=== PATIENT | male | born 1970 | race Caucasian/White ===

== ENCOUNTER → 2016-08-30 | Outpatient (CLI) | payer BC ==
--- NOTE | 2016-08-31 09:11 | XR ---
EXAMINATION TYPE: XR lumbosacral spine min 4V DATE OF EXAM: 08/30/2016 COMPARISON: NONE HISTORY: Low back pain TECHNIQUE: 5 view lumbar spine FINDINGS: There 5 lumbar-type vertebral bodies. Pedicles are intact. Some narrowing of the L4-5 disc height and L5-S1 disc height posteriorly may be present. Some mild posterior disc space narrowing at L3-4 may also be present. Spondylosis is present. Mild facet degenerative changes are present greater in the left lower spine. IMPRESSION: 1. Mild degenerative disc changes L3-4 through L5-S1 posteriorly. 2. Minimal degenerative changes in the left lower facets.
== END | disposition home or self-care (01) ==
LOC: RADXRMAIN 17:49
PROVIDERS: ATTEND Family Medicine
DX: M47.817 Spondylosis without myelopathy or radiculopathy, lumbosacral region (principal)
CPT/HCPCS: 72110

== ENCOUNTER → 2017-04-13 | Outpatient (CLI) | payer BC ==
--- NOTE | 2017-04-14 08:51 | XR ---
Right knee HISTORY: Pain 3 views of the right knee There is marginal spurring and joint space loss in the medial compartment. Alignment and bone mineral ization are maintained. No fracture or dislocation. No evident joint effusion. IMPRESSION: Osteoarthritis.
== END | disposition home or self-care (01) ==
LOC: RADXRMAIN 16:57
PROVIDERS: ATTEND Family Medicine
DX: M17.11 Unilateral primary osteoarthritis, right knee (principal)

== ENCOUNTER → 2020-04-15 | Outpatient (CLI) | payer BC | END | disposition home or self-care (01) | LOC: LABWHC1 12:29 | PROVIDERS: ATTEND Family Medicine | DX: R05 Cough (principal); Z20.822 Contact with and (suspected) exposure to COVID-19 | CPT/HCPCS: U0003; C9803; U0005 ==

== ENCOUNTER → 2021-10-08 | Outpatient (CLI) | payer BC ==
--- NOTE | 2021-10-08 11:58 | MR ---
EXAMINATION TYPE: MR cervical spine wo con DATE OF EXAM: 10/08/2021 COMPARISON: None HISTORY: Neck pain, LUE radiculopathy. TECHNIQUE: Multiplanar, multisequence images of the cervical spine were acquired without contrast. C2-C3: No evident disc herniation or foraminal encroachment or spinal stenosis. C3-C4: Uncovertebral joint hypertrophy causes some mild foraminal encroachment bilaterally. No eviden t disc herniation. No significant spinal stenosis. C4-C5: There is some uncovertebral joint hypertrophy, some encroachment on the neural foramina is mil d. Small posterior disc bulge causes anterior mass effect on the thecal sac, may contact the anterior cervical cord, suspect there is a narrow spinal canal, there is mild spinal stenosis. C5-C6: Uncovertebral joint hypertrophy results in bilateral foraminal encroachment. Posterior extensi on endplate disc complex, posterior broad-based disc bulge causes mass effect on the cervical cord, m ild to moderate spinal stenosis. C6-C7: There is bilateral uncovertebral joint hypertrophy causing foraminal encroachment. Posterior e xtension endplate disc complex, posterior broad-based disc bulge causes anterior mass effect on the t hecal sac and possibly contact with the cervical cord, mild spinal stenosis. C7-T1: No evidence for degenerative disc disease. No disc bulge/herniation or protrusion. No Canal stenosis. Foramina are patent bilaterally. Cervical segments are intact. There is normal alignment. Cervical spinal cord is of normal signal. Craniovertebral junction relationships are within normal limits. Thoracic spinal curvature is suspe cted. Cervical vertebral bodies show preserved height and alignment. There is multilevel spondylosis with endplate discogenic marrow signal change. Loss of disc height signal is present at C5-6, C6-7 co nsistent with disc desiccation and degenerative disc disease. IMPRESSION: Degenerative disc disease as described with spinal stenosis and foraminal encroachment at multiple le vels..
== END | disposition home or self-care (01) ==
LOC: RADMRIMAIN 10:11
PROVIDERS: ATTEND Family Medicine
DX: M50.123 Cervical disc disorder at C6-C7 level with radiculopathy (principal); M99.71 Connective tissue and disc stenosis of intervertebral foramina of cervical region
CPT/HCPCS: 72141

== ENCOUNTER 2023-06-13 01:18 | Inpatient (IN) | payer BC ==
--- NOTE | 2023-06-13 01:48 | ED ---
General Adult HPI - General Chief complaint: Abdominal Pain Stated complaint: abd pain Time Seen by Provider: 06/13/23 01:36 Source: patient, RN notes reviewed, old records reviewed Mode of arrival: ambulatory Limitations: no limitations - History of Present Illness Initial comments: 53-year-old male presents for evaluation of abdominal pain which began today. Patient reports generalized abdominal pain and distention. He states he has been somewhat constipated today and is only able to have a bowel movement. No vomiting. No fever. Pain is generalized. No chest pain. No difficulty breathing. - Related Data Allergies Allergy/AdvReac Type Severity Reaction Status Date / Time No Known Allergies Allergy Verified 06/13/23 01:37 Review of Systems ROS Statement: Those systems with pertinent positive or pertinent negative responses have been documented in the HPI. ROS Other: All systems not noted in ROS Statement are negative. Past Medical History Past Medical History: Hypertension History of Any Multi-Drug Resistant Organisms: MRSA Date of last positivie culture/infection: 06/14/18 MDRO Source:: AXILLA Past Surgical History: Joint Replacement Additional Past Surgical History / Comment(s): R knee Smoking Status: Never smoker Past Alcohol Use History: Occasional Past Drug Use History: None Reported General Exam Limitations: no limitations General appearance: alert, in no apparent distress Head exam: Present: atraumatic, normocephalic Eye exam: Present: normal appearance, PERRL ENT exam: Present: normal exam Respiratory exam: Present: normal lung sounds bilaterally. Absent: respiratory distress, wheezes Cardiovascular Exam: Present: regular rate, normal rhythm GI/Abdominal exam: Present: soft, distended, tenderness. Absent: guarding, rebound Extremities exam: Present: normal inspection Neurological exam: Present: alert, oriented X3, CN II-XII intact, normal gait. Absent: motor sensory deficit Psychiatric exam: Present: normal affect, normal mood Skin exam: Present: warm, dry, intact Course Vital Signs 06/13/23 01:32 Temperature 98.1 F Pulse Rate 92 Respiratory 18 Rate Blood Pressure 161/95 O2 Sat by Pulse 96 Oximetry Medical Decision Making - Medical Decision Making Was pt. sent in by a medical professional or institution (, PA, TREAD TUBER MACHINE OPERATOR, urgent care, hospital, or detention...) When possible be specific @ -No Did you speak to anyone other than the patient for history (EMS, parent, family, police, friend...)? What history was obtained from this source @ -No Did you review nursing and triage notes (agree or disagree)? Why? @ -I reviewed and agree with nursing and triage notes Were old charts reviewed (outside hosp., previous admission, EMS record, old EKG, old radiological studies, urgent care reports/EKG's, detention records)? Report findings @ -No old charts were reviewed Differential Diagnosis (chest pain, altered mental status, abdominal pain women, abdominal pain men, vaginal bleeding, weakness, fever, dyspnea, syncope, headache, dizziness, GI bleed, back pain, seizure, CVA, palpatations, mental health, musculoskeletal)? @ -Differential Abdominal Pain Men: Appendicitis, cholecystitis, diverticulosis, ischemic bowel, pancreatitis, hepatitis, UTI, gastroenteritis, AAA, incarcerated hernia, bowel obstruction, constipation, inflammatory bowel, hepatitis, peptic ulcer disease, splenic infarction, perforated viscus, testicular torsion, this is not meant to be an all-inclusive list EKG interpreted by me (3pts min.). @ -As above X-rays interpreted by me (1pt min.). @ -None done CT interpreted by me (1pt min.). @ -CT abdomen pelvis showing distal colonic mass with obstruction U/S interpreted by me (1pt. min.). @ -None done What testing was considered but not performed or refused? (CT, X-rays, U/S, labs)? Why? @ -None What meds were considered but not given or refused? Why? @ -None Did you discuss the management of the patient with other professionals (professionals i.e. , PA, TREAD TUBER MACHINE OPERATOR, lab, RT, psych nurse, social service agency director, child care education coordinator, teacher, housing officer, disease case manager rn)? Give summary @ -Dr. Alexander Was smoking cessation discussed for >3mins.? @ -No Was critical care preformed (if so, how long)? @ -No Were there social determinants of health that impacted care today? How? (Home lessness, low income, unemployed, alcoholism, drug addiction, transportation, low edu. Level, literacy, decrease access to med. care, custodial, rehab)? @ -No Was there de-escalation of care discussed even if they declined (Discuss DNR or withdrawal of care, Hospice)? DNR status @ -No What co-morbidities impacted this encounter? (DM, HTN, Smoking, COPD, CAD, Cancer, CVA, ARF, Chemo, Hep., AIDS, mental health diagnosis, sleep apnea, morbid obesity)? @ -None Was patient admitted / discharged? Hospital course, mention meds given and route, prescriptions, significant lab abnormalities, going to OR and other pertinent info. @ -[53-year-old male with generalized abdominal discomfort and distention. Workup is initiated including CBC, CMP, urinalysis. Laboratory testing is unremarkable. CT imaging performed showing a distal colonic mass with associated obstruction. The patient will be admitted to his primary care provider Dr. Alexander with general surgery on consult. Undiagnosed new problem with uncertain prognosis? @ -No Drug Therapy requiring intensive monitoring for toxicity (Heparin, Nitro, Insulin, Cardizem)? @ -No Were any procedures done? @ -No Diagnosis/symptom? @ -[Colonic mass, colonic obstruction Acute, or Chronic, or Acute on Chronic? @ -Acute Uncomplicated (without systemic symptoms) or Complicated (systemic symptoms)? @ -Default Side effects of treatment? @ -No Exacerbation, Progression, or Severe Exacerbation? @ -No Poses a threat to life or bodily function? How? (Chest pain, [place], NH, pneumonia, PE, COPD, DKA, ARF, appy, cholecystitis, CVA, Diverticulitis, Homicidal, Suicidal, threat to staff... and all critical care pts) @ -[Moderate risk - Lab Data Result diagrams: 06/13/23 01:48 06/13/23 01:48 Lab Results 06/13/23 06/13/23 06/13/23 Range/Units 01:48 01:48 01:48 WBC 8.1 (3.8-10.6) k/uL RBC 4.92 (4.30-5.90) m/uL Hgb 11.0 L (13.0-17.5) gm/dL Hct 34.7 L (39.0-53.0) % MCV 70.5 L (80.0-100.0) fL MCH 22.5 L (25.0-35.0) pg MCHC 31.9 (31.0-37.0) g/dL RDW 16.2 H (11.5-15.5) % Plt Count 301 (150-450) k/uL MPV 6.8 Neutrophils % 68 % Lymphocytes % 19 % Monocytes % 7 % Eosinophils % 3 % Basophils % 1 % Neutrophils # 5.5 (1.3-7.7) k/uL Lymphocytes # 1.6 (1.0-4.8) k/uL Monocytes # 0.5 (0-1.0) k/uL Eosinophils # 0.3 (0-0.7) k/uL Basophils # 0.1 (0-0.2) k/uL Hypochromasia Moderate Anisocytosis Slight Microcytosis Moderate PT 10.5 (10.0-12.5) sec INR 0.9 (<1.2) APTT 25.0 (22.0-30.0) sec Sodium (137-145) mmol/L Potassium (3.5-5.1) mmol/L Chloride (98-107) mmol/L Carbon Dioxide (22-30) mmol/L Anion Gap mmol/L BUN (9-20) mg/dL Creatinine (0.66-1.25) mg/dL Est GFR (CKD-EPI)AfAm (>60 ml/min/1.73 sqM) Est GFR (CKD-EPI)NonAf (>60 ml/min/1.73 sqM) Glucose (74-99) mg/dL Plasma Lactic Acid [place] (0.7-2.0) mmol/L Calcium (8.4-10.2) mg/dL Total Bilirubin (0.2-1.3) mg/dL AST (17-59) U/L ALT (4-49) U/L Alkaline Phosphatase (38-126) U/L Total Protein (6.3-8.2) g/dL Albumin (3.5-5.0) g/dL Amylase (30-110) U/L Lipase (23-300) U/L Urine Color Yellow Urine Appearance Clear (Clear) Urine pH 5.5 (5.0-8.0) Ur Specific [place] 1.034 (1.001-1.035) Urine Protein Trace H (Negative) Urine Glucose (UA) Negative (Negative) Urine Ketones Negative (Negative) Urine Blood Negative (Negative) Urine Nitrite Negative (Negative) Urine Bilirubin Negative (Negative) Urine Urobilinogen <2.0 (<2.0) mg/dL Ur Leukocyte Esterase Negative (Negative) 03/12/24 03/12/24 Range/Units 01:48 01:48 WBC (3.8-10.6) k/uL RBC (4.30-5.90) m/uL Hgb (13.0-17.5) gm/dL Hct (39.0-53.0) % MCV (80.0-100.0) fL MCH (25.0-35.0) pg MCHC (31.0-37.0) g/dL RDW (11.5-15.5) % Plt Count (150-450) k/uL MPV Neutrophils % % Lymphocytes % % Monocytes % % Eosinophils % % Basophils % % Neutrophils # (1.3-7.7) k/uL Lymphocytes # (1.0-4.8) k/uL Monocytes # (0-1.0) k/uL Eosinophils # (0-0.7) k/uL Basophils # (0-0.2) k/uL Hypochromasia Anisocytosis Microcytosis PT (10.0-12.5) sec INR (<1.2) APTT (22.0-30.0) sec Sodium 138 (137-145) mmol/L Potassium 4.4 (3.5-5.1) mmol/L Chloride 105 (98-107) mmol/L Carbon Dioxide 24 (22-30) mmol/L Anion Gap 9 mmol/L BUN 13 (9-20) mg/dL Creatinine 0.62 L (0.66-1.25) mg/dL Est GFR (CKD-EPI)AfAm >90 (>60 ml/min/1.73 sqM) Est GFR (CKD-EPI)NonAf >90 (>60 ml/min/1.73 sqM) Glucose 101 H (74-99) mg/dL Plasma Lactic Acid [place] 1.1 (0.7-2.0) mmol/L Calcium 8.9 (8.4-10.2) mg/dL Total Bilirubin 0.6 (0.2-1.3) mg/dL AST 28 (17-59) U/L ALT 22 (4-49) U/L Alkaline Phosphatase 67 (38-126) U/L Total Protein 7.0 (6.3-8.2) g/dL Albumin 4.2 (3.5-5.0) g/dL Amylase 94 (30-110) U/L Lipase 90 (23-300) U/L Urine Color Urine Appearance (Clear) Urine pH (5.0-8.0) Ur Specific [place] (1.001-1.035) Urine Protein (Negative) Urine Glucose (UA) (Negative) Urine Ketones (Negative) Urine Blood (Negative) Urine Nitrite (Negative) Urine Bilirubin (Negative) Urine Urobilinogen (<2.0) mg/dL Ur Leukocyte Esterase (Negative) Disposition Clinical Impression: Mass of colon Disposition: ADMITTED IP TO THIS HOSP Condition: Stable Is patient prescribed a controlled substance at d/c from ED?: No Referrals: Gerald Alexander MD [Primary Care Provider] - 1-2 days Time of Disposition: 04:45
[2023-06-13] MEDS: SODIUM CHLORIDE 0.9% 500 ML 500 ML IV ONE (02:09)
[2023-06-13] MEDS: MORPHINE SULFATE 4 MG/ML SYRINGE IVP STA (02:09)
[2023-06-13 02:11] LABS: Anisocytosis Slight; Basophils # (A) 0.1 k/uL (0-0.2); Basophils % (A) 1 %; Eosinophils # (A) 0.3 k/uL (0-0.7); Eosinophils % (A) 3 %; HCT 34.7 % (39.0-53.0); Hypochromasia Moderate; Lymphocytes # (A) 1.6 k/uL (1.0-4.8); Lymphocytes % (A) 19 %; MCH 22.5 pg (25.0-35.0); MCHC 31.9 g/dL (31.0-37.0); MCV 70.5 fL (80.0-100.0); Mean Platelet Volume 6.8; Microcytosis Moderate; Monocytes # (A) 0.5 k/uL (0-1.0); Monocytes % (A) 7 %; Neutrophils # (A) 5.5 k/uL (1.3-7.7); Neutrophils % (A) 68 %; Platelet Count 301 k/uL (150-450); RBC 4.92 m/uL (4.30-5.90); RDW 16.2 % (11.5-15.5); WBC 8.1 k/uL (3.8-10.6)
[2023-06-13 02:12] LABS: Appearance,Urine Clear (Clear); Bilirubin,Urine Negative (Negative); Blood,Urine Negative (Negative); Color,Urine Yellow; Glucose,Urine (UA) Negative (Negative); Ketones,Urine Negative (Negative); Leukocyte Esterase,Urine Negative (Negative); Nitrite,Urine Negative (Negative); PH, Urine 5.5 (5.0-8.0); Protein,Urine Trace (Negative); Specific Gravity,Urine 1.034 (1.001-1.035); Urobilinogen,Urine <2.0 mg/dL (<2.0)
[2023-06-13 02:20] LABS: ALT 22 U/L (4-49); AST 28 U/L (17-59); African American GFR (CKD) >90 (>60 ml/min/1.73 sqM); Albumin 4.2 g/dL (3.5-5.0); Alkaline Phosphatase 67 U/L (38-126); Amylase 94 U/L (30-110); Anion Gap 9 mmol/L; Blood Urea Nitrogen 13 mg/dL (9-20); Calcium 8.9 mg/dL (8.4-10.2); Carbon Dioxide 24 mmol/L (22-30); Chloride 105 mmol/L (98-107); Glucose 101 mg/dL (74-99); Lipase 90 U/L (23-300); Non-African American GFR(CKD) >90 (>60 ml/min/1.73 sqM); Potassium 4.4 mmol/L (3.5-5.1); Sodium 138 mmol/L (137-145); Total Bilirubin 0.6 mg/dL (0.2-1.3)
[2023-06-13 02:49] LABS: INR 0.9 (<1.2); Prothrombin Time 10.5 sec (10.0-12.5)
--- NOTE | 2023-06-13 04:25 | CT ---
EXAM: CT Abdomen and Pelvis With Intravenous Contrast CLINICAL HISTORY: Abdominal pain TECHNIQUE: Axial computed tomography images of the abdomen and pelvis with intravenous contrast. CTDI is 25 mGy and DLP is 2207.9 mGy-cm. This CT exam was performed using one or more of the following dose reduction techniques: automated exposure control, adjustment of the mA and/or kV according to patient size, and/or use of iterative reconstruction technique. COMPARISON: No relevant prior studies available. FINDINGS: Lung bases: 2 cm centrally calcified nodule in the right lower lobe with adjacent probable atelectasis. ABDOMEN: Liver: Mildly hypodense/fatty. No mass. Gallbladder and bile ducts: 1 cm calcified stone. Gallbladder otherwise unremarkable. No ductal dilation. Pancreas: Unremarkable. No mass. No ductal dilation. Spleen: Unremarkable. No splenomegaly. Adrenals: Unremarkable. No mass. Kidneys and ureters: Unremarkable. No solid mass. No hydronephrosis. Stomach and bowel: Small hiatal hernia. Normal caliber small bowel. Abundant stool in the colon to the level of the distal left colon with wall thickening. Focal proximal sigmoid colon soft tissue mass 7.2 cm in length by 4.5 cm in diameter consistent with an annular mass/neoplasm. Colon is collapsed distally. No evidence for diverticulitis. PELVIS: Appendix: No findings to suggest acute appendicitis. Bladder: Unremarkable. No mass. Reproductive: Unremarkable as visualized. ABDOMEN and PELVIS: Intraperitoneal space: No free air. No free fluid. Bones/joints: No acute fracture. Degenerative changes of the spine Soft tissues: Unremarkable. Vasculature: Atherosclerotic vascular calcifications. No abdominal aortic aneurysm. Lymph nodes: Unremarkable. No enlarged lymph nodes. 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 Nonspecific centrally calcified soft tissue nodule in the right lower lobe with adjacent atelectasis. Cholelithiasis. Fatty liver.
[2023-06-13] MEDS ORDERED: ONDANSETRON 4 MG/2 ML VIAL IVP PRN ×2 (04:42→12:32)
[2023-06-13] MEDS ORDERED: NALOXONE 0.4 MG/ML 1 ML VIAL IV PRN ×2 (04:42→10:45)
[2023-06-13] MEDS: SODIUM CHLORIDE 0.9% 1,000 ML IV SCH (04:57)
[2023-06-13] MEDS: MORPHINE SULFATE 4 MG/ML SYRINGE IV PRN (05:39)
--- NOTE | 2023-06-13 07:51 | P.GSHP ---
History of Present Illness H&P Date: 06/13/23 Chief Complaint: Abdominal pain, obstipation This a 53-year-old male who is a 24 history of left lower quadrant abdominal pain nausea and abdominal distention and constipation. Patient states he is unable to the bathroom. Patient was seen in the antrum. His CAT scan sugge stive of a neoplasm of the sigmoid colon causing colon obstruction. Patient has significant colonic dilatation with a distended cecum. Patient states that he has had no significant abdominal complaints prior to this admission. Past Medical History Past Medical History: Hypertension History of Any Multi-Drug Resistant Organisms: MRSA Date of last positivie culture/infection: 06/14/18 MDRO Source:: AXILLA Past Surgical History: Joint Replacement Additional Past Surgical History / Comment(s): R knee, cysts on buttock I&D, C5- 7 surgery with cage Nov 2021 Past Anesthesia/Blood Transfusion Reactions: Previous Problems w/ Anesthesia Additional Past Anesthesia/Blood Transfusion Reaction / Comment(s): Pressure drops and hard to wake up Past Psychological History: No Psychological Hx Reported Smoking Status: Never smoker Past Alcohol Use History: Occasional Past Drug Use History: None Reported - Past Family History Brother(s) Family Medical History: Diabetes Mellitus Mother Family Medical History: Diabetes Mellitus Father Family Medical History: Myocardial Infarction ([place]) Additional Family Medical History / Comment(s): [place] at 51 and one at 66 when he passed. Medications and Allergies Allergies Allergy/AdvReac Type Severity Reaction Status Date / Time No Known Allergies Allergy Verified 06/13/23 01:37 Surgical - Exam Vital Signs Temp Pulse Resp BP Pulse Ox 98.1 F 92 18 161/95 96 06/13/23 01:32 06/13/23 01:32 06/13/23 01:32 06/13/23 01:32 06/13/23 01:32 - General well developed, well nourished, no distress - Eyes PERRL - ENT normal pinna - Neck no masses - Respiratory normal expansion - Cardiovascular Rhythm: regular - Abdomen Tender left lower quadrant, abdomen is distended Abdomen: soft Results - Labs 06/13/23 01:48 06/13/23 01:48 Abnormal Lab Results - Last 24 Hours (Table) 06/13/23 06/13/23 06/13/23 Range/Units 01:48 01:48 01:48 Hgb 11.0 L (13.0-17.5) gm/dL Hct 34.7 L (39.0-53.0) % MCV 70.5 L (80.0-100.0) fL MCH 22.5 L (25.0-35.0) pg RDW 16.2 H (11.5-15.5) % Creatinine 0.62 L (0.66-1.25) mg/dL Glucose 101 H (74-99) mg/dL Urine Protein Trace H (Negative) Diabetes panel 06/13/23 Range/Units 01:48 Sodium 138 (137-145) mmol/L Potassium 4.4 (3.5-5.1) mmol/L Chloride 105 (98-107) mmol/L Carbon Dioxide 24 (22-30) mmol/L BUN 13 (9-20) mg/dL Creatinine 0.62 L (0.66-1.25) mg/dL Glucose 101 H (74-99) mg/dL Calcium 8.9 (8.4-10.2) mg/dL AST 28 (17-59) U/L ALT 22 (4-49) U/L Alkaline Phosphatase 67 (38-126) U/L Total Protein 7.0 (6.3-8.2) g/dL Albumin 4.2 (3.5-5.0) g/dL Calcium panel 06/13/23 Range/Units 01:48 Calcium 8.9 (8.4-10.2) mg/dL Albumin 4.2 (3.5-5.0) g/dL Pituitary panel 06/13/23 Range/Units 01:48 Sodium 138 (137-145) mmol/L Potassium 4.4 (3.5-5.1) mmol/L Chloride 105 (98-107) mmol/L Carbon Dioxide 24 (22-30) mmol/L BUN 13 (9-20) mg/dL Creatinine 0.62 L (0.66-1.25) mg/dL Glucose 101 H (74-99) mg/dL Calcium 8.9 (8.4-10.2) mg/dL Adrenal panel 06/13/23 Range/Units 01:48 Sodium 138 (137-145) mmol/L Potassium 4.4 (3.5-5.1) mmol/L Chloride 105 (98-107) mmol/L Carbon Dioxide 24 (22-30) mmol/L BUN 13 (9-20) mg/dL Creatinine 0.62 L (0.66-1.25) mg/dL Glucose 101 H (74-99) mg/dL Calcium 8.9 (8.4-10.2) mg/dL Total Bilirubin 0.6 (0.2-1.3) mg/dL AST 28 (17-59) U/L ALT 22 (4-49) U/L Alkaline Phosphatase 67 (38-126) U/L Total Protein 7.0 (6.3-8.2) g/dL Albumin 4.2 (3.5-5.0) g/dL - Imaging CT scan - abdomen: report reviewed (Neoplasm obstructing sigmoid colon causing colon obstruction) Assessment and Plan Assessment: Acute colon obstruction secondary to sigmoid neoplasm. Patient will undergo possible sigmoid resection with end colostomy
--- NOTE | 2023-06-13 08:42 | P.HPIM ---
History of Present Illness H&P Date: 06/13/23 Chief Complaint: Abdominal pain This is a 53-year-old male who presented to the emergency room with abdominal pain and distention. Patient reports he had been somewhat constipated and was very uncomfortable. Patient denies any fever vomiting or nausea. 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 Patient was seen and evaluated by Dr. Ziegler who is planning a sigmoid resection with end colostomy. Further medical history as noted below. Patient is seen lying in bed this morning, reports he is comfortable. Review of Systems Constitutional: Denies chills, Denies fever Cardiovascular: Denies chest pain, Denies dyspnea on exertion Respiratory: Denies cough, Denies dyspnea Gastrointestinal: Reports abdominal pain, Reports constipation, Denies nausea, Denies vomiting Musculoskeletal: Denies arm numbness/tingling, Denies leg numbness/tingling Neurological: Denies headaches, Denies weakness Past Medical History Past Medical History: Hypertension History of Any Multi-Drug Resistant Organisms: MRSA Date of last positivie culture/infection: 06/14/18 MDRO Source:: AXILLA Past Surgical History: Joint Replacement Additional Past Surgical History / Comment(s): R knee, cysts on buttock I&D, C5- 7 surgery with cage Nov 2021 Past Anesthesia/Blood Transfusion Reactions: Previous Problems w/ Anesthesia Additional Past Anesthesia/Blood Transfusion Reaction / Comment(s): Pressure drops and hard to wake up Past Psychological History: No Psychological Hx Reported Smoking Status: Never smoker Past Alcohol Use History: Occasional Past Drug Use History: None Reported - Past Family History Brother(s) Family Medical History: Diabetes Mellitus Mother Family Medical History: Diabetes Mellitus Father Family Medical History: Myocardial Infarction ([place]) Additional Family Medical History / Comment(s): [place] at 51 and one at 66 when he passed. Medications and Allergies Home Medications Medication Instructions Recorded Confirmed Type Citalopram Hydrobromide 20 mg PO DAILY 06/13/23 06/13/23 History [Citalopram HBr] LORazepam [Ativan] 0.5 - 1.5 mg PO TID PRN 06/13/23 06/13/23 History lisinopriL [Zestril] 10 mg PO DAILY 06/13/23 06/13/23 History Allergies Allergy/AdvReac Type Severity Reaction Status Date / Time No Known Allergies Allergy Verified 06/13/23 07:58 Physical Exam Vitals: Vital Signs Temp Pulse Pulse Resp BP BP Pulse Ox 06/13/23 07:08 98.4 F 71 20 106/67 97 06/13/23 05:43 18 06/13/23 05:27 98 F 68 18 143/82 98 06/13/23 04:59 69 18 131/78 99 06/13/23 01:32 98.1 F 92 18 161/95 96 Intake and Output 06/12/23 06/13/23 06/13/23 22:59 06:59 14:59 Intake Total 500 Balance 500 Intake: IV 500 Invasive Line 1 500 Oral 0 Other: Voiding Method Toilet Weight 117.934 kg - Constitutional General appearance: cooperative, no acute distress - EENT Eyes: PERRLA - Neck Neck: no lymphadenopathy, normal ROM, no rigidity - Respiratory Respiratory: bilateral: CTA - Cardiovascular Rhythm: regular Heart sounds: normal: S1, S2 - Gastrointestinal General gastrointestinal: distended, soft, tenderness - Integumentary Integumentary: normal, normal turgor - Psychiatric Psychiatric: A&O x's 3, appropriate affect, intact judgment & insight Results CBC & Chem 7: 06/13/23 01:48 06/13/23 01:48 Labs: Abnormal Lab Results - Last 24 Hours (Table) 06/13/23 06/13/23 06/13/23 Range/Units 01:48 01:48 01:48 Hgb 11.0 L (13.0-17.5) gm/dL Hct 34.7 L (39.0-53.0) % MCV 70.5 L (80.0-100.0) fL MCH 22.5 L (25.0-35.0) pg RDW 16.2 H (11.5-15.5) % Creatinine 0.62 L (0.66-1.25) mg/dL Glucose 101 H (74-99) mg/dL Urine Protein Trace H (Negative) Thrombosis Risk Factor Assmnt - Choose All That Apply Any of the Below Risk Factors Present?: Yes Each Factor Represents 1 point: Age 41-60 years, Obesity (BMI >25) Each Risk Factor Represents 2 Points: Malignancy Thrombosis Risk Factor Assessment Total Risk Factor Score: 4 Thrombosis Risk Factor Assessment Level: Moderate Risk Assessment and Plan (1) Mass of colon Current Visit: Yes Status: Acute Code(s): K63.89 - OTHER SPECIFIED DISEASES OF INTESTINE SNOMED Code(s): 877628468 (2) Hypertension Current Visit: Yes Status: Acute Code(s): I10 - ESSENTIAL (PRIMARY) HYPERTENSION SNOMED Code(s): 67811148 (3) Constipation Current Visit: Yes Status: Acute Code(s): K59.00 - CONSTIPATION, UNSPECIFIED SNOMED Code(s): 68963106 (4) Abdominal pain Current Visit: Yes Status: Acute Code(s): R10.9 - UNSPECIFIED ABDOMINAL PAIN SNOMED Code(s): 32750551 Plan: Home medications reconciled. Check CBC and CMP in the morning. Await results of sigmoid resection Patient seen and evaluated by nurse practitioner, physician in agreement with plan
[2023-06-13] MEDS: IV FLUID CONTINUATION 800 ML IV ONE (09:00)
[2023-06-13] MEDS: MIDAZOLAM 2 MG/2 ML VIAL IVP ONE (09:14)
[2023-06-13] MEDS: ONDANSETRON 4 MG/2 ML VIAL IVP ONE (09:27)
[2023-06-13] MEDS: DEXAMETHASONE SOD PHOSPHATE 4 MG/ML 1 ML VIAL IVP ONE (09:28)
[2023-06-13] MEDS ORDERED: PROPOFOL 10 MG/ML 20 ML VIAL IV ONE (10:28)
[2023-06-13] MEDS ORDERED: ROCURONIUM 10 MG/ML (5 ML VIAL) IV ONE (10:28)
[2023-06-13] MEDS ORDERED: PHENYLEPHRINE 10 MG/ML VIAL ONE (10:28)
[2023-06-13] MEDS ORDERED: SUGAMMADEX SODIUM 200 MG/2 ML SDV IV ONE (10:28)
[2023-06-13] MEDS ORDERED: SUCCINYLCHOLINE CHLORIDE 200 MG/10 ML VIAL IV ONE (10:28)
[2023-06-13] MEDS ORDERED: KETAMINE HCL IN 0.9 % NACL 50 MG/5 ML SYRINGE ONE (10:28)
[2023-06-13] MEDS ORDERED: fentaNYL (PF) 50 MCG/ML 2 ML AMP ONE (10:28)
--- NOTE | 2023-06-13 10:44 | P.ANPRN ---
Procedure Note - Anesthesia - Epidural/Spinal Epidural Continuous Time Out Performed: Yes Date of Procedure: 06/13/23 Procedure Start Time: 10:13 Procedure Stop Time: 10:23 Location of Patient: PreOp Indication: Acute Post-Operative Pain, Requested by Surgeon Sedation Type: Sedate with meaningful contact maintained Preparation: Sterile Dressing Position: Sitting Catheter: Indwelling Needle Guage: 18 Blood Aspirated: No Pain Paresthesia on Injection Noted: No Events: Uneventful and Well Tolerated (Lidocaine 1.5% plus epi 3 cc was given test dose with no adverse reaction)
[2023-06-13] MEDS: LACTATED RINGERS 1,000 ML IV ONE (11:36)
[2023-06-13] MEDS ORDERED: BENZOCAINE/MENTHOL LOZENG 1 EACH LOZENGE MUCOUS MEM PRN (12:32)
--- NOTE | 2023-06-13 12:32 | P.OP ---
Date of Procedure: 06/13/23 Preoperative Diagnosis: colon obstruction Postoperative Diagnosis: Colon obstruction secondary sigmoid tumor Procedure(s) Performed: Exposure laparotomy Sigmoid resection end colostomy Anesthesia: JOSE ALFREDO Surgeon: Odilon Ziegler Estimated Blood Loss (ml): 25 Pathology: other (Sigmoid colon) Condition: stable Disposition: PACU Operative Findings: Clinical obstruction secured into sigmoid mass Description of Procedure: The patient's placed the operative table in supine position. He received general endotracheal tube anesthesia. His abdomen was prepped and draped usual sterile fashion. A midline low skin incision was made. His left cautery the abdominal cavity is entered. The Bookwalter was placed the wound. The colon was massively dilated. There were appeared to be an obstructing lesion of the sigmoid colon proximally. The colon mass was adherent to the abdominal wall. This was lysed with sharp and blunt dissection. The colon was then transected using a CIARAN stapler. 2 staple loads were needed to fire across the stapler due to the large caliber of the colon. Next using the LigaSure the mesentery the bowel was divided. And then the rectum was transected with the contour stapler. The rectum appeared to be decompressed in relation to the proximal colon. The specimens of pathology. The left colon was mobilized by dividing the white line of Toldt's. Suitable length of colon was brought up for the colostomy. The abdomen was irrigated is no bleeding seen. The fascia was then closed in looped #1 PDS suture. Skin was closed joseph. In the colostomy was matured with 3-0 Vicryl suture. During extubation the patient was bucking. The suture was heard to snap. And then the skin joseph were dehisced. The patient had a full wound dehiscence due to him coughing and straining during extubation. The patient was reprepped and then the fascial stitch was examined. The fascial stitch had broken. The joseph and fascial stitches removed. The fascia then closed in looped #1 suture. Skin was closed joseph. Patient had a previous vena wound dressing placed. Patient was sent to recovery in stable condition.
[2023-06-13] MEDS: ROPIVACAINE 250 MG, HYDROMORPHONE (PF) 5 MG in SODIUM CHLORIDE 0.9% 200 ML EPIDURAL PRN (12:58)
[2023-06-13] MEDS: HYDROmorphone 0.5 MG/0.5 ML SYRINGE IVP ONE (13:10)
[2023-06-13] MEDS: metroNIDAZOLE-NS PMX 500 MG in SALINE 1 100ML.BAG IVPB STA (14:20)
[2023-06-13] MEDS: lisinopriL 10 MG TAB PO SCH (14:21)
[2023-06-13] MEDS: CITALOPRAM HYDROBROMIDE 20 MG TAB PO SCH (14:21)
[2023-06-13] MEDS: D5-0.45% NACL WITH KCL 20MEQ/L 1,000 ML IV SCH (14:21)
[2023-06-13 14:40] LABS: Anisocytosis Slight; Basophils % (A) 0 %; Eosinophils % (A) 0 %; HCT 36.7 % (39.0-53.0); HGB 11.4 gm/dL (13.0-17.5); Hypochromasia Marked; Lymphocytes # (A) 0.7 k/uL (1.0-4.8); Lymphocytes % (A) 6 %; MCH 22.4 pg (25.0-35.0); MCV 72.3 fL (80.0-100.0); Mean Platelet Volume 7.2; Microcytosis Moderate; Monocytes # (A) 0.5 k/uL (0-1.0); Monocytes % (A) 4 %; Neutrophils % (A) 90 %; Platelet Count 328 k/uL (150-450); RBC 5.08 m/uL (4.30-5.90); RDW 16.3 % (11.5-15.5); WBC 12.3 k/uL (3.8-10.6)
[2023-06-13 14:47] LABS: African American GFR (CKD) >90 (>60 ml/min/1.73 sqM); Anion Gap 9 mmol/L; Blood Urea Nitrogen 10 mg/dL (9-20); Calcium 8.3 mg/dL (8.4-10.2); Carbon Dioxide 23 mmol/L (22-30); Chloride 105 mmol/L (98-107); Glucose 140 mg/dL (74-99); Non-African American GFR(CKD) >90 (>60 ml/min/1.73 sqM); Potassium 4.8 mmol/L (3.5-5.1); Sodium 137 mmol/L (137-145)
[2023-06-13] MEDS: HEPARIN SODIUM,PORCINE 5,000 UNIT/ML 1 ML VIAL SQ SCH (15:26)
[2023-06-13] MEDS: FAMOTIDINE 20 MG/2 ML VIAL IV SCH (20:47)
--- NOTE | 2023-06-14 07:06 | P.PN ---
Progress Note - Text Progress Note Date: 06/14/23 Postoperative day #1 status post laparotomy, sigmoid resection epidural catheter placed for postoperative analgesia, patient doing well epidural site okay, patient currently on combination of epidural infusion solution of Ropivacaine 0.0625% and Dilaudid 20 g per mL the infusion rate at 7 ml per hour , patient had no motor deficit epidural site okay , vital signs stable ,VAS 6 /10 , Assessment and plan= post operative day #1 patient doing well, patient complaining of some abdominal pain with deep breaths and movement ,I will increase epidural infusion to 8 mL/h, there is no anesthesia related complications
--- NOTE | 2023-06-14 08:36 | P.PN ---
Subjective Progress Note Date: 06/14/23 Principal diagnosis: This is a 53-year-old white male status post proximal sigmoid resection related to colonic mass. Pathology pending. Pain is nominal. No flatus as of yet No fever or chills. No significant nausea, vomiting or diarrhea pain is nominal Objective - Vital Signs Vital signs: Vital Signs Temp 98.2 F 06/14/23 07:32 Pulse 101 H 06/14/23 07:32 Resp 16 06/14/23 07:32 BP 105/65 06/14/23 07:32 Pulse Ox 92 L 06/14/23 07:32 FiO2 Intake & Output 06/13/23 06/14/23 06/14/23 18:59 06:59 18:59 Intake Total 1850.6 106.633 Output Total 900 1000 Balance 950.6 -893.367 Intake: IV 1850 Intake, IV Titration 0.6 106.633 Amount Ropivacaine 250 mg 0.6 106.633 Hydromorphone (Pf) 5 mg In Sodium Chloride 0.9% 200 ml @ Per Protocol EPIDURAL .Q0M PRN Rx#: [id number] Oral 0 Output: Urine 850 1000 Estimated Blood Loss 50 Other: Voiding Method Indwelling Catheter Indwelling Catheter - Constitutional General appearance: Present: obese - EENT Eyes: Absent: abnormal pupil - Neck Neck: Absent: lymphadenopathy - Respiratory Respiratory: bilateral: CTA - Cardiovascular Rhythm: regular Heart sounds: normal: S1, S2 Abnormal Heart Sounds: Absent: S3 Gallop - Gastrointestinal General gastrointestinal: Present: absent bowel sounds, tenderness Localized gastrointestinal: tender: RLQ - Integumentary Integumentary: Absent: cellulitis - Psychiatric Psychiatric: Present: A&O x's 3, appropriate affect - Labs CBC & Chem 7: 06/13/23 14:06 06/13/23 14:06 Labs: Abnormal Lab Results - Last 24 Hours (Table) 06/13/23 06/13/23 Range/Units 14:06 14:06 WBC 12.3 H (3.8-10.6) k/uL Hgb 11.4 L (13.0-17.5) gm/dL Hct 36.7 L (39.0-53.0) % MCV 72.3 L (80.0-100.0) fL MCH 22.4 L (25.0-35.0) pg RDW 16.3 H (11.5-15.5) % Neutrophils # 11.0 H (1.3-7.7) k/uL Lymphocytes # 0.7 L (1.0-4.8) k/uL Creatinine 0.65 L (0.66-1.25) mg/dL Glucose 140 H (74-99) mg/dL Calcium 8.3 L (8.4-10.2) mg/dL Assessment and Plan (1) Hypertension Current Visit: Yes Status: Acute Code(s): I10 - ESSENTIAL (PRIMARY) HYPERTENSION SNOMED Code(s): 98750840 (2) Mass of colon Current Visit: Yes Status: Acute Code(s): K63.89 - OTHER SPECIFIED DISEASES OF INTESTINE SNOMED Code(s): 070785029 Plan: Continue postop pulmonary toilet. Check CBC and CMP in AM. Advance diet per surgical protocols. Await pathology. Time with Patient: Greater than 30
[2023-06-14 08:37] LABS: HCT 29.6 % (39.6-50.0); HGB 8.8 g/dL (13.0-17.0); MCH 21.2 pg (27.0-32.0); MCHC 29.7 g/dL (32.0-37.0); MCV 71.2 FL (80.0-97.0); Mean Platelet Volume 9.8 FL (9.5-12.2); NRBC Per 100 WBC 0 X 10*3/uL (0.00-0.01); Platelet Count 311 X 10*3/uL (140-440); RBC 4.16 X 10*6/uL (4.40-5.60); RDW 16.8 % (11.5-14.5); WBC 9.37 X 10*3/uL (4.50-10.00)
[2023-06-14 08:51] LABS: ALT 15 U/L (10-49); AST 14 U/L (14-35); Albumin 3.6 g/dL (3.8-4.9); Albumin/Globulin Ratio 1.71 Ratio (1.60-3.17); Alkaline Phosphatase 51 U/L (41-126); Blood Urea Nitrogen 8.4 mg/dL (9.0-27.0); Carbon Dioxide 27.1 mmol/L (21.6-31.8); Chloride 99 mmol/L (96-109); Globulin 2.1 g/dL (1.6-3.3); Glucose 129 mg/dL (70-110); Potassium 4.4 mmol/L (3.5-5.5); Sodium 134 mmol/L (135-145); Total Bilirubin 0.5 mg/dL (0.3-1.2); Total Protein 5.7 g/dL (6.2-8.2)
[2023-06-14] MEDS: ALVIMOPAN 12 MG CAPSULE PO SCH (09:06)
--- NOTE | 2023-06-14 11:37 | P.PN ---
Subjective Progress Note Date: 06/14/23 CHIEF COMPLAINT: Colon obstruction secondary to sigmoid tumor HISTORY OF PRESENT ILLNESS: Patient postop day #1 status post exploratory laparotomy, sigmoid resection and end colostomy. Patient has epidural for pain control. Poe catheter in place. Patient reports his pain is controlled. He does have a output through his ostomy. Denies any nausea or vomiting. Afebrile. Mildly tachycardic. WBC is down from 12.3-9.37 Hgb 8.8 platelets 311 sodium is 134 potassium 4.4 creatinine 0.8 PHYSICAL EXAM: VITAL SIGNS: Reviewed. GENERAL: Well-developed in no acute distress. ABDOMEN: Soft. Nondistended. Tenderness at incision site. Prevana wound vac intact NEUROLOGIC: Alert and oriented. Cranial nerves II through XII grossly intact. ASSESSMENT: 1. Colon obstruction secondary to sigmoid tumor PLAN: -Keep patient n.p.o. -Continue IV fluids -Continue epidural for pain control -Encourage patient to increase activity level -Encourage patient to use incentive spirometer -GI prophylaxis Pepcid and DVT prophylaxis subcu heparin Physician Anesthesiologist Assistant Certified note has been reviewed by physician. Signing provider agrees with the documented findings, assessment, and plan of care. Objective - Vital Signs Vital signs: Vital Signs Temp 98.2 F 06/14/23 07:32 Pulse 101 H 06/14/23 07:32 Resp 16 06/14/23 07:32 BP 105/65 06/14/23 07:32 Pulse Ox 92 L 06/14/23 07:32 FiO2 Intake & Output 06/13/23 06/14/23 06/14/23 18:59 06:59 18:59 Intake Total 1850.6 106.633 Output Total 900 1000 Balance 950.6 -893.367 Intake: IV 1850 Intake, IV Titration 0.6 106.633 Amount Ropivacaine 250 mg 0.6 106.633 Hydromorphone (Pf) 5 mg In Sodium Chloride 0.9% 200 ml @ Per Protocol EPIDURAL .Q0M PRN Rx#: [id number] Oral 0 Output: Urine 850 1000 Estimated Blood Loss 50 Other: Voiding Method Indwelling Catheter Indwelling Catheter Indwelling Catheter - Labs CBC & Chem 7: 06/14/23 05:42 06/14/23 05:42 Labs: Abnormal Lab Results - Last 24 Hours (Table) 06/13/23 06/13/23 06/14/23 Range/Units 14:06 14:06 05:42 WBC 12.3 H (3.8-10.6) k/uL RBC 4.16 L (4.40-5.60) X 10*6/uL Hgb 11.4 L 8.8 L (13.0-17.5) gm/dL Hct 36.7 L 29.6 L (39.0-53.0) % MCV 72.3 L 71.2 L (80.0-100.0) fL MCH 22.4 L 21.2 L (25.0-35.0) pg MCHC 29.7 L (32.0-37.0) g/dL RDW 16.3 H 16.8 H (11.5-15.5) % Neutrophils # 11.0 H (1.3-7.7) k/uL Lymphocytes # 0.7 L (1.0-4.8) k/uL Sodium (135-145) mmol/L BUN (9.0-27.0) mg/dL Creatinine 0.65 L (0.66-1.25) mg/dL BUN/Creatinine Ratio (12.00-20.00) Ratio Glucose 140 H (74-99) mg/dL Calcium 8.3 L (8.4-10.2) mg/dL Total Protein (6.2-8.2) g/dL Albumin (3.8-4.9) g/dL 06/14/23 Range/Units 05:42 WBC (3.8-10.6) k/uL RBC (4.40-5.60) X 10*6/uL Hgb (13.0-17.5) gm/dL Hct (39.0-53.0) % MCV (80.0-100.0) fL MCH (25.0-35.0) pg MCHC (32.0-37.0) g/dL RDW (11.5-15.5) % Neutrophils # (1.3-7.7) k/uL Lymphocytes # (1.0-4.8) k/uL Sodium 134 L (135-145) mmol/L BUN 8.4 L (9.0-27.0) mg/dL Creatinine (0.66-1.25) mg/dL BUN/Creatinine Ratio 10.50 L (12.00-20.00) Ratio Glucose 129 H (74-99) mg/dL Calcium 8.0 L (8.4-10.2) mg/dL Total Protein 5.7 L (6.2-8.2) g/dL Albumin 3.6 L (3.8-4.9) g/dL
--- NOTE | 2023-06-15 08:48 | P.PN ---
Progress Note - Text Progress Note Date: 06/15/23 (650) Anesthesia Postop day #2 Status post sigmoid colectomy with epidural day #3 Patient seen and examined. Doing well without complaint. VAS 3 out of 10. Mild pruritus. Tolerable. No nausea or vomiting. Ropivacaine 0.1% with 6% at 8 cc an hour. Objective: Vital signs reviewed Lungs: Good chest excursion Abdomen: Appears nondistended Other: Epidural Site Intact without induration. Dressing intact Neuro: No apparent motor block. Sensory within normal limits. Assessment: Status post sigmoid colectomy postop days #2 Plan: Continue current care with your medical management. Anticipate discontinue catheter tomorrow.
--- NOTE | 2023-06-15 08:49 | P.PN ---
Subjective Progress Note Date: 06/15/23 Principal diagnosis: colon mass This is a 53-year-old male who originally presented to the emergency room with complaints of abdominal pain and distention. 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 He was seen and evaluated by Dr. Ziegler and underwent a sigmoid resection and end colostomy on Monday. Pathology is pending. Patient reports he is passing gas. He is having output through his ostomy. Objective - Vital Signs Vital signs: Vital Signs Temp 98.7 F 06/15/23 07:10 Pulse 80 06/15/23 07:10 Resp 16 06/15/23 07:10 BP 129/66 06/15/23 07:10 Pulse Ox 96 06/15/23 08:03 FiO2 Intake & Output 06/14/23 06/15/23 06/15/23 18:59 06:59 18:59 Intake Total 103.067 Output Total 675 800 Balance -675 -696.933 Intake: Intake, IV Titration 103.067 Amount Ropivacaine 250 mg 103.067 Hydromorphone (Pf) 5 mg In Sodium Chloride 0.9% 200 ml @ Per Protocol EPIDURAL .Q0M PRN Rx#: [id number] Oral 0 Output: Urine 600 800 Stool 75 Other: Voiding Method Indwelling Catheter Indwelling Catheter - Constitutional General appearance: Present: cooperative, no acute distress - EENT Eyes: Present: PERRLA - Neck Neck: Present: normal ROM. Absent: lymphadenopathy, rigidity - Respiratory Respiratory: bilateral: CTA - Cardiovascular Rhythm: regular Heart sounds: normal: S1, S2 - Gastrointestinal General gastrointestinal: Present: tenderness - Integumentary Integumentary: Present: normal, normal turgor - Psychiatric Psychiatric: Present: A&O x's 3, appropriate affect, intact judgment & insight - Labs CBC & Chem 7: 06/14/23 05:42 06/14/23 05:42 Labs: Abnormal Lab Results - Last 24 Hours (Table) 06/14/23 Range/Units 05:42 Sodium 134 L (135-145) mmol/L BUN 8.4 L (9.0-27.0) mg/dL BUN/Creatinine Ratio 10.50 L (12.00-20.00) Ratio Glucose 129 H (70-110) mg/dL Calcium 8.0 L (8.7-10.3) mg/dL Total Protein 5.7 L (6.2-8.2) g/dL Albumin 3.6 L (3.8-4.9) g/dL Assessment and Plan (1) Mass of colon Current Visit: Yes Status: Acute Code(s): K63.89 - OTHER SPECIFIED DISEASES OF INTESTINE SNOMED Code(s): 468202719 (2) Hypertension Current Visit: Yes Status: Acute Code(s): I10 - ESSENTIAL (PRIMARY) HYPERTENSION SNOMED Code(s): 94995288 (3) Constipation Current Visit: Yes Status: Acute Code(s): K59.00 - CONSTIPATION, UNSPECIFIED SNOMED Code(s): 99919067 (4) Abdominal pain Current Visit: Yes Status: Acute Code(s): R10.9 - UNSPECIFIED ABDOMINAL PAIN SNOMED Code(s): 08741596 Plan: Check CBC and CMP in the morning. Will ask oncology to see patient regarding anemia and colon mass. Patient seen and evaluated by nurse practitioner, physician in agreement with plan
[2023-06-15 09:08] LABS: HCT 28.2 % (39.6-50.0); HGB 8.1 g/dL (13.0-17.0); MCH 21.3 pg (27.0-32.0); MCHC 28.7 g/dL (32.0-37.0); Mean Platelet Volume 10.3 FL (9.5-12.2); NRBC Per 100 WBC 0 X 10*3/uL (0.00-0.01); Platelet Count 297 X 10*3/uL (140-440); RBC 3.81 X 10*6/uL (4.40-5.60); RDW 17.2 % (11.5-14.5); WBC 10.65 X 10*3/uL (4.50-10.00)
[2023-06-15 09:22] LABS: ALT 13 U/L (10-49); AST 23 U/L (14-35); Albumin 3.3 g/dL (3.8-4.9); Albumin/Globulin Ratio 1.57 Ratio (1.60-3.17); Alkaline Phosphatase 50 U/L (41-126); BUN/Creat Ratio 8.75 Ratio (12.00-20.00); Carbon Dioxide 26.4 mmol/L (21.6-31.8); Chloride 99 mmol/L (96-109); Globulin 2.1 g/dL (1.6-3.3); Glucose 117 mg/dL (70-110); Potassium 4.5 mmol/L (3.5-5.5); Sodium 133 mmol/L (135-145); Total Bilirubin 0.5 mg/dL (0.3-1.2); Total Protein 5.4 g/dL (6.2-8.2)
[2023-06-15 10:14] LABS: Reticulocyte % 2.2 % (0.5-2.0)
--- NOTE | 2023-06-15 13:50 | P.PN ---
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 Patient has epidural for pain control. Poe catheter in place. Patient reports his pain is controlled. Patient had output through his ostomy yesterday. There is small amount output today. Denies any nausea or vomiting. Afebrile. WBC 10.65 Hgb 8.1 Path report pending PHYSICAL EXAM: VITAL SIGNS: Reviewed. GENERAL: Well-developed in no acute distress. ABDOMEN: Soft. Nondistended. Tenderness at incision site. Prevana wound vac intact NEUROLOGIC: Alert and oriented. Cranial nerves II through XII grossly intact. ASSESSMENT: 1. Colon obstruction secondary to sigmoid tumor PLAN: -Advance diet to clear liquids -Continue IV fluids -Plan remove epidural and Poe catheter tomorrow -Encourage patient to increase activity level -Encourage patient to use incentive spirometer -GI prophylaxis Pepcid and DVT prophylaxis subcu heparin Physician Junior Qa Analyst note has been reviewed by physician. Signing provider agrees with the documented findings, assessment, and plan of care. Objective - Vital Signs Vital signs: Vital Signs Temp 98.2 F 06/15/23 12:46 Pulse 76 06/15/23 12:46 Resp 18 06/15/23 12:46 BP 122/74 06/15/23 12:46 Pulse Ox 100 06/15/23 12:46 FiO2 Intake & Output 06/14/23 06/15/23 06/15/23 18:59 06:59 18:59 Intake Total 103.067 Output Total 675 800 75 Balance -675 -696.933 -75 Intake: Intake, IV Titration 103.067 Amount Ropivacaine 250 mg 103.067 Hydromorphone (Pf) 5 mg In Sodium Chloride 0.9% 200 ml @ Per Protocol EPIDURAL .Q0M PRN Rx#: [id number] Oral 0 Output: Urine 600 800 Stool 75 75 Other: Voiding Method Indwelling Catheter Indwelling Catheter Indwelling Catheter - Labs CBC & Chem 7: 06/15/23 04:57 06/15/23 04:57 Labs: Abnormal Lab Results - Last 24 Hours (Table) 06/15/23 06/15/23 06/15/23 Range/Units 04:57 04:57 09:35 WBC 10.65 H (4.50-10.00) X 10*3/uL RBC 3.81 L (4.40-5.60) X 10*6/uL Hgb 8.1 L (13.0-17.0) g/dL Hct 28.2 L (39.6-50.0) % MCV 74.0 L (80.0-97.0) FL MCH 21.3 L (27.0-32.0) pg MCHC 28.7 L (32.0-37.0) g/dL RDW 17.2 H (11.5-14.5) % Retic Count 2.2 H (0.5-2.0) % Sodium 133 L (135-145) mmol/L BUN 7.0 L (9.0-27.0) mg/dL BUN/Creatinine Ratio 8.75 L (12.00-20.00) Ratio Glucose 117 H (70-110) mg/dL Calcium 8.0 L (8.7-10.3) mg/dL Total Protein 5.4 L (6.2-8.2) g/dL Albumin 3.3 L (3.8-4.9) g/dL Albumin/Globulin Ratio 1.57 L (1.60-3.17) Ratio
[2023-06-15] MEDS: NYSTATIN 100,000 UNIT/ML SUSP 500,000 UNIT/5 ML CUP PO SCH (16:15)
--- NOTE | 2023-06-15 17:08 | P.CONS ---
History of Present Illness - Reason for Consult Consult date: 06/15/23 anemia, colon mass Requesting physician: Fatuma Abbasi - Chief Complaint Abd pain - History of Present Illness Patient came through the ER 06/13/2023 with complaints of abdominal pain associated with constipation and abd distention. Reports pain and bloating x 1 day, constipation started about 1 week prior. He had a CT AP that reported abundant stool in the colon to the level of the distal left colon with wall thickening, proximal sigmoid colon soft tissue mass 7.2 cm x 4.5 cm, colon collapsed distally. Patient was seen by Surgery, he had exploratory laparotomy with sigmoid resection and end colostomy 06/13/2023. Pathology is still pending. States about a 25lb wt loss since he had neck surgery last year. Denied fevers or sweats, no black or bloody stool, he has never had a colonoscopy, there is no family history of malignancy. Review of Systems 14 point ROS is neg except as stated in HPI Past Medical History Past Medical History: Hypertension History of Any Multi-Drug Resistant Organisms: MRSA Year Discovered:: 06/14/18 MDRO Source:: [facility] Past Surgical History: Joint Replacement Additional Past Surgical History / Comment(s): R knee, cysts on buttock I&D, C5- 7 surgery with cage Nov 2021 Past Anesthesia/Blood Transfusion Reactions: Previous Problems w/ Anesthesia Additional Past Anesthesia/Blood Transfusion Reaction / Comm: Pressure drops and hard to wake up Past Psychological History: No Psychological Hx Reported Smoking Status: Never smoker Past Alcohol Use History: Occasional Past Drug Use History: None Reported - Past Family History Brother(s) Family Medical History: Diabetes Mellitus Mother Family Medical History: Diabetes Mellitus Father Family Medical History: Myocardial Infarction ([place]) Additional Family Medical History / Comment(s): [place] at 51 and one at 66 when he passed. Medications and Allergies Home Medications Medication Instructions Recorded Confirmed Type Citalopram Hydrobromide 20 mg PO DAILY 06/13/23 06/13/23 History [Citalopram HBr] LORazepam [Ativan] 0.5 - 1.5 mg PO TID PRN 06/13/23 06/13/23 History lisinopriL [Zestril] 10 mg PO DAILY 06/13/23 06/13/23 History Allergies Allergy/AdvReac Type Severity Reaction Status Date / Time No Known Allergies Allergy Verified 06/13/23 07:58 Physical Exam Vitals: Vital Signs Temp Pulse Resp BP Pulse Ox 06/15/23 08:03 96 06/15/23 07:12 96 06/15/23 07:10 98.7 F 80 16 129/66 89 L 06/15/23 03:05 98.0 F 82 16 117/70 96 06/14/23 20:38 99.6 F 92 16 116/61 95 06/14/23 20:00 16 06/14/23 17:47 97 06/14/23 12:36 98.7 F 92 16 90/59 89 L Intake and Output 06/14/23 06/15/23 06/15/23 22:59 06:59 14:59 Intake Total 103.067 Output Total 675 800 Balance -571.933 -800 Intake: Intake, IV Titration 103.067 Amount Ropivacaine 250 mg 103.067 Hydromorphone (Pf) 5 mg In Sodium Chloride 0.9% 200 ml @ Per Protocol EPIDURAL .Q0M PRN Rx#: [id number] Oral 0 Output: Urine 600 800 Stool 75 Other: Voiding Method Indwelling Catheter - Constitutional General appearance: cooperative, no acute distress, obese - EENT Eyes: anicteric sclerae, EOMI ENT: hearing grossly normal, normal oropharynx - Neck Neck: no lymphadenopathy - Respiratory Respiratory: bilateral: CTA - Cardiovascular Rhythm: regular Heart sounds: normal: S1, S2 Abnormal Heart Sounds: no systolic murmur, no diastolic murmur, no rub, no S3 Gallop, no S4 Gallop, no click, no other leg Peripheral Edema: bilateral: None - Gastrointestinal Midline incision with drain, LLQ ostomy with small amount of bloody drainage Results CBC & Chem 7: 06/15/23 04:57 06/15/23 04:57 Labs: Abnormal Lab Results - Last 24 Hours (Table) 06/14/23 Range/Units 05:42 Sodium 134 L (135-145) mmol/L BUN 8.4 L (9.0-27.0) mg/dL BUN/Creatinine Ratio 10.50 L (12.00-20.00) Ratio Glucose 129 H (70-110) mg/dL Calcium 8.0 L (8.7-10.3) mg/dL Total Protein 5.7 L (6.2-8.2) g/dL Albumin 3.6 L (3.8-4.9) g/dL CT scan - abdomen: report reviewed CT scan - pelvis: report reviewed Assessment and Plan (1) Mass of colon Current Visit: Yes Status: Acute Priority: High Code(s): K63.89 - OTHER SPECIFIED DISEASES OF INTESTINE SNOMED Code(s): 770587634 (2) Abdominal pain Current Visit: Yes Status: Acute Priority: High Code(s): R10.9 - UNSPECIFIED ABDOMINAL PAIN SNOMED Code(s): 80559724 (3) Microcytic hypochromic anemia Current Visit: Yes Status: Acute Priority: Medium Code(s): D50.9 - IRON DEFICIENCY ANEMIA, UNSPECIFIED SNOMED Code(s): 53516124 (4) Constipation Current Visit: Yes Status: Acute Priority: High Code(s): K59.00 - CONSTIPATION, UNSPECIFIED SNOMED Code(s): 30773917 Plan: Mass of the colon -Reviewed with the patient concerns that the mass that was removed is malignant. -Based on obstruction on presentation, he will most likely need adjuvant chemotherapy. Did explain though, that final pathology will be needed to confirm the same. Final path will also report invasion into the colonic wall, surrounding tissues as well as if any lymph nodes are involved. All of these pathological aspects will determine final stage and recommendations for treatment and follow up. -Advised pt that no treatment for cancer would begin until adequately healed from surgery -All pt questions answered to his satisfaction and he verbalized understanding info that is pending -F/U with Dr. Bell, 3-4 weeks Microcytic, hypochromic anemia -Mild anemia on admission, hemoglobin down in the 8 range now. Multifactorial including likely losses from the tumor, postop as well as dilution from fluids. -Anemia workup ordered. Will follow-up with recommendations for treatment of the same -Transfuse for hemoglobin less than 7 or if patient is symptomatic Doctor attests: I performed a history and physical examination of this patient, developed impression and plan of care. Discussed with dictator. I agree with dictators note, documented as a scribe.
[2023-06-15 19:51] LABS: % Iron Saturation 2.76 (15.00-50.00); Ferritin 41.3 ng/mL (22.0-322.0)
[2023-06-16] MEDS ORDERED: HYDROmorphone 1 MG/ML 1 ML SYRINGE IVP PRN (07:54)
[2023-06-16 08:36] LABS: HCT 28.4 % (39.6-50.0); HGB 8.3 g/dL (13.0-17.0); MCH 21.4 pg (27.0-32.0); MCHC 29.2 g/dL (32.0-37.0); MCV 73.2 FL (80.0-97.0); Mean Platelet Volume 10.3 FL (9.5-12.2); NRBC Per 100 WBC 0 X 10*3/uL (0.00-0.01); Platelet Count 268 X 10*3/uL (140-440); RBC 3.88 X 10*6/uL (4.40-5.60); RDW 17.1 % (11.5-14.5); WBC 7.41 X 10*3/uL (4.50-10.00)
--- NOTE | 2023-06-16 08:44 | P.PN ---
Subjective Principal diagnosis: This is a 53-year-old white male status post proximal sigmoid resection related to colonic mass. Pathology pending. Pain is nominal. He is tolerating diet. Hopefully we can wean off of IV medication today. He is asking to possibly go home. No fever or chills. No significant nausea, vomiting or diarrhea pain is nominal Objective - Vital Signs Vital signs: Vital Signs Temp 99.0 F 06/16/23 07:39 Pulse 74 06/16/23 07:39 Resp 18 06/16/23 07:39 BP 119/76 06/16/23 07:39 Pulse Ox 96 06/16/23 07:39 FiO2 Intake & Output 06/15/23 06/16/23 06/16/23 18:59 06:59 18:59 Intake Total 250 Output Total 1575 2450 Balance -1575 -2200 Intake: Intake, IV Titration 250 Amount Ropivacaine 250 mg 250 Hydromorphone (Pf) 5 mg In Sodium Chloride 0.9% 200 ml @ Per Protocol EPIDURAL .Q0M PRN Rx#: [id number] Oral 0 Output: Urine 1500 2300 Stool 75 150 Other: Voiding Method Indwelling Catheter Indwelling Catheter - Constitutional General appearance: Present: cooperative, obese - EENT Eyes: Absent: abnormal pupil - Neck Neck: Absent: lymphadenopathy - Respiratory Respiratory: bilateral: diminished - Cardiovascular Rhythm: regular Heart sounds: normal: S1, S2 Abnormal Heart Sounds: Absent: S3 Gallop - Gastrointestinal General gastrointestinal: Present: decreased bowel sounds, soft - Integumentary Integumentary: Absent: cellulitis - Labs CBC & Chem 7: 06/16/23 05:37 06/15/23 04:57 Labs: Abnormal Lab Results - Last 24 Hours (Table) 06/15/23 06/15/23 06/15/23 Range/Units 04:57 04:57 09:35 WBC 10.65 H (4.50-10.00) X 10*3/uL RBC 3.81 L (4.40-5.60) X 10*6/uL Hgb 8.1 L (13.0-17.0) g/dL Hct 28.2 L (39.6-50.0) % MCV 74.0 L (80.0-97.0) FL MCH 21.3 L (27.0-32.0) pg MCHC 28.7 L (32.0-37.0) g/dL RDW 17.2 H (11.5-14.5) % Retic Count 2.2 H (0.5-2.0) % Sodium 133 L (135-145) mmol/L BUN 7.0 L (9.0-27.0) mg/dL BUN/Creatinine Ratio 8.75 L (12.00-20.00) Ratio Glucose 117 H (70-110) mg/dL Calcium 8.0 L (8.7-10.3) mg/dL Iron (65-175) UG/DL % Saturation (15.00-50.00) Total Protein 5.4 L (6.2-8.2) g/dL Albumin 3.3 L (3.8-4.9) g/dL Albumin/Globulin Ratio 1.57 L (1.60-3.17) Ratio 06/15/23 06/16/23 Range/Units 09:35 05:37 WBC (4.50-10.00) X 10*3/uL RBC 3.88 L (4.40-5.60) X 10*6/uL Hgb 8.3 L (13.0-17.0) g/dL Hct 28.4 L (39.6-50.0) % MCV 73.2 L (80.0-97.0) FL MCH 21.4 L (27.0-32.0) pg MCHC 29.2 L (32.0-37.0) g/dL RDW 17.1 H (11.5-14.5) % Retic Count (0.5-2.0) % Sodium (135-145) mmol/L BUN (9.0-27.0) mg/dL BUN/Creatinine Ratio (12.00-20.00) Ratio Glucose (70-110) mg/dL Calcium (8.7-10.3) mg/dL Iron 12 L (65-175) UG/DL % Saturation 2.76 L (15.00-50.00) Total Protein (6.2-8.2) g/dL Albumin (3.8-4.9) g/dL Albumin/Globulin Ratio (1.60-3.17) Ratio Assessment and Plan (1) Hypertension Current Visit: Yes Status: Acute Code(s): I10 - ESSENTIAL (PRIMARY) HYPERTENSION SNOMED Code(s): 55393554 (2) Mass of colon Current Visit: Yes Status: Acute Priority: High Code(s): K63.89 - OTHER SPECIFIED DISEASES OF INTESTINE SNOMED Code(s): 166250766 Plan: Continue postop pulmonary toilet. Check CBC and CMP in AM. Advance diet per surgical protocols. Await pathology. Anticipate discharge when cleared by surgery.
[2023-06-16 08:56] LABS: ALT 14 U/L (10-49); AST 22 U/L (14-35); Albumin 3.4 g/dL (3.8-4.9); Albumin/Globulin Ratio 1.55 Ratio (1.60-3.17); Alkaline Phosphatase 48 U/L (41-126); BUN/Creat Ratio 8.17 Ratio (12.00-20.00); Blood Urea Nitrogen 4.9 mg/dL (9.0-27.0); Calcium 8.3 mg/dL (8.7-10.3); Carbon Dioxide 26.3 mmol/L (21.6-31.8); Chloride 102 mmol/L (96-109); Globulin 2.2 g/dL (1.6-3.3); Glucose 117 mg/dL (70-110); Potassium 4.4 mmol/L (3.5-5.5); Sodium 138 mmol/L (135-145); Total Bilirubin 0.4 mg/dL (0.3-1.2); Total Protein 5.6 g/dL (6.2-8.2)
--- NOTE | 2023-06-16 10:26 | P.PN ---
Progress Note - Text 06/16/23 642am 3-year-old male status post HoLEP with Dr. arias, patient is an epidural catheter for postop pain control with a solution running in the 8cc per hour with a VAS of 2. No motor or sensory deficits noted. Plan to DC epidural
[2023-06-16] MEDS: SODIUM FERRIC GLUCONAT-SUCROSE 125 MG in SODIUM CHLORIDE 0.9% 100 ML IVPB SCH (10:57)
[2023-06-16 11:14] VITALS: BMI 41.9
--- NOTE | 2023-06-16 13:24 | P.PN ---
Subjective Progress Note Date: 06/16/23 Principal diagnosis: sigmoid mass At today's visit patient is resting comfortably in bedside chair. No acute events. Patient reports he is passing flatus and is having ostomy output. Denies abdominal pain and nausea vomiting. Patient afebrile. Hemoglobin stable today at 8.3. Iron studies consistent with iron deficiency anemia. Parenteral iron started. Objective - Vital Signs Vital signs: Vital Signs Temp 99.0 F 06/16/23 07:39 Pulse 74 06/16/23 07:39 Resp 18 06/16/23 07:39 BP 119/76 06/16/23 07:39 Pulse Ox 96 06/16/23 07:39 FiO2 Intake & Output 06/15/23 06/16/23 06/16/23 18:59 06:59 18:59 Intake Total 250 Output Total 1575 2450 Balance -1575 -2200 Weight 117.934 kg Intake: Intake, IV Titration 250 Amount Ropivacaine 250 mg 250 Hydromorphone (Pf) 5 mg In Sodium Chloride 0.9% 200 ml @ Per Protocol EPIDURAL .Q0M PRN Rx#: [id number] Oral 0 Output: Urine 1500 2300 Stool 75 150 Other: Voiding Method Indwelling Catheter Indwelling Catheter Indwelling Catheter - Constitutional General appearance: Present: no acute distress, obese - EENT Eyes: Present: anicteric sclerae, EOMI ENT: Present: hearing grossly normal - Respiratory Details: Breathing even and unlabored - Cardiovascular Details: Skin warm and dry - Gastrointestinal Gastrointestinal Comment(s): Ostomy in situ - Integumentary Integumentary: Absent: cyanotic - Neurologic Neurologic: Present: CNII-XII intact - Musculoskeletal Musculoskeletal: Present: strength equal bilaterally - Psychiatric Psychiatric: Present: A&O x's 3 - Labs CBC & Chem 7: 06/16/23 05:37 06/16/23 05:32 Labs: Abnormal Lab Results - Last 24 Hours (Table) 06/15/23 06/16/23 06/16/23 Range/Units 09:35 05:32 05:37 RBC 3.88 L (4.40-5.60) X 10*6/uL Hgb 8.3 L (13.0-17.0) g/dL Hct 28.4 L (39.6-50.0) % MCV 73.2 L (80.0-97.0) FL MCH 21.4 L (27.0-32.0) pg MCHC 29.2 L (32.0-37.0) g/dL RDW 17.1 H (11.5-14.5) % BUN 4.9 L (9.0-27.0) mg/dL BUN/Creatinine Ratio 8.17 L (12.00-20.00) Ratio Glucose 117 H (70-110) mg/dL Calcium 8.3 L (8.7-10.3) mg/dL Iron 12 L (65-175) UG/DL % Saturation 2.76 L (15.00-50.00) Total Protein 5.6 L (6.2-8.2) g/dL Albumin 3.4 L (3.8-4.9) g/dL Albumin/Globulin Ratio 1.55 L (1.60-3.17) Ratio Assessment and Plan (1) Abdominal pain Current Visit: Yes Status: Acute Priority: High Code(s): R10.9 - UNSPECIFIED ABDOMINAL PAIN SNOMED Code(s): 20047970 (2) Mass of colon Current Visit: Yes Status: Acute Priority: High Code(s): K63.89 - OTHER SPECIFIED DISEASES OF INTESTINE SNOMED Code(s): 767717377 (3) Microcytic hypochromic anemia Current Visit: Yes Status: Acute Priority: Medium Code(s): D50.9 - IRON DEFICIENCY ANEMIA, UNSPECIFIED SNOMED Code(s): 94579821 Plan: Mass of the colon -Reviewed with the patient and concerns for malignancy -Based on obstruction on presentation, he would most likely need adjuvant chemo therapy in the setting of malignancy. Did explain though, that final pathology will be needed to confirm the same. -Advised pt that no treatment for cancer would begin until adequately healed from surgery -Path was pending at todays visit, but has since resulted. Path negative for malignancy. Revealing inflammatory polyps with focal slight hyperplasia, erosin and prolapse change. Severe chronic and active diverticulitis with abscess. No further oncological workup necessary at this time. Recommend outpt colonoscopy once recovered -General surgery following, defer post-op management to surgical team Microcytic, hypochromic anemia -Mild anemia on admission, hemoglobin down in the 8 range now. Multifactorial including likely losses from the tumor, postop as well as dilution from fluids. -Anemia workup ordered. Revealing significant iron deficiency. B12 327, folate 14.8. MMA pending. IV iron x 4 doses was ordered. -Continue to monitor CBC. Transfuse for hemoglobin less than 7 or if patient is symptomatic
--- NOTE | 2023-06-16 13:38 | P.PN ---
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 Patient's epidural and Poe catheter have been removed. Patient reports his pain is controlled. Denies any nausea or vomiting. Very small amount of stool noted in ostomy bag. Pathology results were negative for malignancy. Did report severe chronic and active diverticulitis with abscess, fibrosis and serosal fibrous adhesions. Dr. Ziegler did review pathology results with patient. Afebrile. WBC 7.41 Hgb 8.3 platelets 268 iron levels low. Hematology has started iron supplement. PHYSICAL EXAM: VITAL SIGNS: Reviewed. GENERAL: Well-developed in no acute distress. ABDOMEN: Soft. Nondistended. Tenderness at incision site. Prevana wound vac intact NEUROLOGIC: Alert and oriented. Cranial nerves II through XII grossly intact. ASSESSMENT: 1. Colon obstruction secondary to diverticulitis. No malignancy noted on pathology PLAN: -Advance diet to full liquids -Epidural and Poe catheter discontinued today -IV Dilaudid and [place] added for pain management -Discontinue IV fluids -Encourage patient to increase activity level -Encourage patient to use incentive spirometer -GI prophylaxis Pepcid and DVT prophylaxis subcu heparin Physician Field Crop Farmer note has been reviewed by physician. Signing provider agrees with the documented findings, assessment, and plan of care. Objective - Vital Signs Vital signs: Vital Signs Temp 99.0 F 06/16/23 07:39 Pulse 74 06/16/23 07:39 Resp 18 06/16/23 07:39 BP 119/76 06/16/23 07:39 Pulse Ox 96 06/16/23 07:39 FiO2 Intake & Output 06/15/23 06/16/23 06/16/23 18:59 06:59 18:59 Intake Total 250 Output Total 1575 2450 900 Balance -1575 -2200 -900 Weight 117.934 kg Intake: Intake, IV Titration 250 Amount Ropivacaine 250 mg 250 Hydromorphone (Pf) 5 mg In Sodium Chloride 0.9% 200 ml @ Per Protocol EPIDURAL .Q0M PRN Rx#: [id number] Oral 0 Output: Urine 1500 2300 900 Stool 75 150 Other: Voiding Method Indwelling Catheter Indwelling Catheter Indwelling Catheter - Labs CBC & Chem 7: 06/16/23 05:37 06/16/23 05:32 Labs: Abnormal Lab Results - Last 24 Hours (Table) 06/15/23 06/16/23 06/16/23 Range/Units 09:35 05:32 05:37 RBC 3.88 L (4.40-5.60) X 10*6/uL Hgb 8.3 L (13.0-17.0) g/dL Hct 28.4 L (39.6-50.0) % MCV 73.2 L (80.0-97.0) FL MCH 21.4 L (27.0-32.0) pg MCHC 29.2 L (32.0-37.0) g/dL RDW 17.1 H (11.5-14.5) % BUN 4.9 L (9.0-27.0) mg/dL BUN/Creatinine Ratio 8.17 L (12.00-20.00) Ratio Glucose 117 H (70-110) mg/dL Calcium 8.3 L (8.7-10.3) mg/dL Iron 12 L (65-175) UG/DL % Saturation 2.76 L (15.00-50.00) Total Protein 5.6 L (6.2-8.2) g/dL Albumin 3.4 L (3.8-4.9) g/dL Albumin/Globulin Ratio 1.55 L (1.60-3.17) Ratio
[2023-06-16] MEDS: HYDROcodone/APAP 5-325MG 1 EACH TAB PO PRN (14:11)
[2023-06-16] MEDS: LORazepam 0.5 MG TAB PO PRN (18:17)
--- NOTE | 2023-06-17 13:58 | P.PN ---
Progress Note - Text Progress Note Date: 06/17/23 Patient is doing well. Ostomy supplies are leaking. Nurses replaced multiple times. Abdomen is soft incisions are otherwise clean dry and intact.
--- NOTE | 2023-06-17 14:43 | P.PN ---
Subjective Progress Note Date: 06/17/23 53-year-old male who presented to the emergency room with abdominal pain and distention. Patient reports he had been somewhat constipated and was very uncomfortable. Patient denies any fever vomiting or nausea. 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 Patient was seen and evaluated by Dr. Ziegler who is planning a sigmoid resection with end colostomy. Further medical history as noted below. Patient is seen lying in bed this morning, reports he is comfortable. Patient is postop day #4 status post exploratory laparotomy, sigmoid resection and end colostomy -Patient has been placed on a full liquid diet -- Surgery recommending to advance as tolerated Objective - Vital Signs Vital signs: Vital Signs Temp 98.5 F 06/17/23 07:23 Pulse 74 06/17/23 07:23 Resp 16 06/17/23 07:23 BP 135/81 06/17/23 07:23 Pulse Ox 97 06/17/23 07:23 FiO2 Intake & Output 06/16/23 06/17/23 06/17/23 18:59 06:59 18:59 Intake Total 34.933 360 Output Total 900 150 Balance -865.067 360 -150 Weight 117.934 kg Intake: Intake, IV Titration 34.933 Amount Ropivacaine 250 mg 34.933 Hydromorphone (Pf) 5 mg In Sodium Chloride 0.9% 200 ml @ Per Protocol EPIDURAL .Q0M PRN Rx#: [id number] Oral 360 Output: Urine 900 Stool 150 Other: Voiding Method Indwelling Catheter Toilet Toilet Urinal # Voids 1 1 # Bowel Movements 1 - Exam VITAL SIGNS: Reviewed. GENERAL: Well-developed in no acute distress. ABDOMEN: Soft. Nondistended. Tenderness at incision site. Prevana wound vac intact NEUROLOGIC: Alert and oriented. Cranial nerves II through XII grossly intact. - Labs CBC & Chem 7: 06/16/23 05:37 06/16/23 05:32 Assessment and Plan Assessment: 1. Colon obstruction secondary to diverticulitis. No malignancy noted on pathology 2. Hypertension PLAN: -Advance diet to full liquids -Epidural and Poe catheter discontinued today -IV Dilaudid and [place] added for pain management -Discontinue IV fluids -Encourage patient to increase activity level -Encourage patient to use incentive spirometer DVT prophylaxis subcu heparin CODE STATUS; full code
--- NOTE | 2023-06-18 10:42 | P.PN ---
Progress Note - Text Progress Note Date: 06/18/23 The patient did well. He has minimal complaints pain. He is tolerating diet. He had some issues with ostomy leaking. On exam vital signs are stable. Abdomen soft. Status post Pita procedure for obstructing diverticula is. Patient will bedischarged home tomorrow.
--- NOTE | 2023-06-18 16:10 | P.PN ---
Subjective Progress Note Date: 06/18/23 53-year-old male who presented to the emergency room with abdominal pain and distention. Patient reports he had been somewhat constipated and was very uncomfortable. Patient denies any fever vomiting or nausea. 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 Patient was seen and evaluated by Dr. Ziegler who is planning a sigmoid resection with end colostomy. Further medical history as noted below. Patient is seen lying in bed this morning, reports he is comfortable. Patient is postop day #4 status post exploratory laparotomy, sigmoid resection and end colostomy -Patient has been placed on a full liquid diet -- Surgery recommending to advance as tolerated 06/17/2022 Patient is seen and evaluated ambulating in the room; reports no specific complaints Vital signs reviewed and remained stable Patient has been evaluated by surgery and recommended to advance diet as tolerated with plans for possible discharge tomorrow morning; patient is status post exploratory laparotomy, sigmoid resection and end colostomy, POD #5 Patient is currently at a full liquid diet; continue to advance Discharge next 24 hours if remains stable and able to tolerate diet Objective - Vital Signs Vital signs: Vital Signs Temp 98.3 F 06/18/23 02:34 Pulse 72 06/18/23 02:34 Resp 16 06/18/23 02:34 BP 114/67 06/18/23 02:34 Pulse Ox 98 06/18/23 02:34 FiO2 Intake & Output 06/17/23 06/18/23 06/18/23 18:59 06:59 18:59 Output Total 350 250 Balance -350 -250 Output: Stool 350 250 Other: Voiding Method Toilet Toilet Toilet # Voids 1 2 1 - Exam VITAL SIGNS: Reviewed. GENERAL: Well-developed in no acute distress. ABDOMEN: Soft. Nondistended. Tenderness at incision site. Prevana wound vac intact NEUROLOGIC: Alert and oriented. Cranial nerves II through XII grossly intact. - Labs CBC & Chem 7: 06/16/23 05:37 06/16/23 05:32 Assessment and Plan Assessment: 1. Colon obstruction secondary to diverticulitis. No malignancy noted on pathology 2. Hypertension PLAN: -Advance diet to full liquids -Epidural and Poe catheter discontinued today -IV Dilaudid and [place] added for pain management -Discontinue IV fluids -Encourage patient to increase activity level -Encourage patient to use incentive spirometer DVT prophylaxis subcu heparin CODE STATUS; full code
[2023-06-19 08:43] LABS: BUN/Creat Ratio 9.29 Ratio (12.00-20.00); Blood Urea Nitrogen 6.5 mg/dL (9.0-27.0); Calcium 8.6 mg/dL (8.7-10.3); Carbon Dioxide 24.5 mmol/L (21.6-31.8); Chloride 101 mmol/L (96-109); Glucose 100 mg/dL (70-110); Sodium 136 mmol/L (135-145)
--- NOTE | 2023-06-19 08:46 | P.DS ---
Providers Date of admission: 06/13/23 04:43 Attending physician: Gerald Alexander Consults: 06/13/23 04:42 Consult Physician Routine Consulting Provider: Odilon Ziegler Consult Reason/Comments: Chronic mass, distal colonic obstruction Do you want consulting provider notified?: Yes 06/15/23 08:22 Consult Physician Routine Consulting Provider: Kamran Bell Consult Reason/Comments: anemia, colon mass Do you want consulting provider notified?: Yes Primary care physician: Gerald Alexander - Discharge Diagnosis(es) (1) Mass of colon Current Visit: Yes Status: Acute Priority: High (2) Hypertension Current Visit: Yes Status: Acute (3) Constipation Current Visit: Yes Status: Acute Priority: High (4) Abdominal pain Current Visit: Yes Status: Acute Priority: High Hospital Course: This is a 53-year-old male who presented to the emergency room with complaints of abdominal pain and distention. 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 Patient underwent a sigmoid resection and end colostomy with Dr. Ziegler last week. He tolerated the procedure well. Ostomy is having good output. Pathology came back as nonmalignant. Patient is tolerating diet. He has been up ambulating in the room. He has met with ostomy nurse. Will discharge patient if cleared by his surgeon. Will need to follow-up in our office by end of week for repeat lab work. Patient seen and evaluated by nurse practitioner, physician in agreement with plan Patient Condition at Discharge: Stable Plan - Discharge Summary Discharge Rx Participant: No New Discharge Prescriptions: New HYDROcodone/APAP 5-325MG [[place] 5-325] 1 tab PO Q6HR PRN 10 Days #40 tab PRN Reason: Pain Continue lisinopriL [Zestril] 10 mg PO DAILY LORazepam [Ativan] 0.5 - 1.5 mg PO TID PRN PRN Reason: Anxiety Citalopram Hydrobromide [Citalopram HBr] 20 mg PO DAILY Discharge Medication List Citalopram Hydrobromide [Citalopram HBr] 20 mg PO DAILY 06/13/23 [History] LORazepam [Ativan] 0.5 - 1.5 mg PO TID PRN 06/13/23 [History] lisinopriL [Zestril] 10 mg PO DAILY 06/13/23 [History] HYDROcodone/APAP 5-325MG [[place] 5-325] 1 tab PO Q6HR PRN 10 Days #40 tab 06/19/23 [Rx] Follow up Appointment(s)/Referral(s): Kamran Bell [STAFF PHYSICIAN] - 4 Weeks Gerald Alexander MD [Primary Care Provider] - 3 Days [facility], [NON-STAFF] - 1 Week Discharge Disposition: HOME WITH HOME HEALTH SERVICES
[2023-06-19 08:51] VITALS: BP 112/71; PULSE 75; RESP 20; TEMP 97.9
[2023-06-19 09:26] LABS: HCT 30.9 % (39.6-50.0); HGB 9.1 g/dL (13.0-17.0); MCH 21.6 pg (27.0-32.0); MCHC 29.4 g/dL (32.0-37.0); MCV 73.2 FL (80.0-97.0); Mean Platelet Volume 10.3 FL (9.5-12.2); NRBC Per 100 WBC 0.05 X 10*3/uL (0.00-0.01); Platelet Count 336 X 10*3/uL (140-440); RBC 4.22 X 10*6/uL (4.40-5.60); RDW 19.2 % (11.5-14.5); WBC 10.85 X 10*3/uL (4.50-10.00)
[2023-06-19 10:33] LABS: Basophils # (M) 0.11 X 10*3/uL (0.00-0.10); Elliptocytes 2+; Eosinophils # (M) 0.43 X 10*3/uL (0.04-0.35); Hypochromasia (M) 2+; Lymphocytes # (M) 2.39 X 10*3/uL (0.90-5.00); Microcytosis (M) 2+; Monocytes # (M) 0.65 X 10*3/uL (0.20-1.00); Myelocytes % 3 % (0-0); Neutrophils # (M) 6.94 X 10*3/uL (1.80-7.70); Neutrophils % (M) 64 %
--- NOTE | 2023-06-19 11:41 | P.PN ---
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 Patient tolerating diet. Ostomy is functioning. He has had his ostomy teaching. Pain is controlled. Afebrile. He has been up and ambulating. PHYSICAL EXAM: VITAL SIGNS: Reviewed. GENERAL: Well-developed in no acute distress. ABDOMEN: Soft. Nondistended. Tenderness at incision site. Prevana wound vac intact. Ostomy with new bag. Stoma beefy red. Retracted. NEUROLOGIC: Alert and oriented. Cranial nerves II through XII grossly intact. ASSESSMENT: 1. Colon obstruction secondary to diverticulitis. No malignancy noted on pathology PLAN: -Advance diet to regular -Discontinue Prevana wound vac before discharge -Patient can be discharged from surgical standpoint Physician Rehabilitation Technician note has been reviewed by physician. Signing provider agrees with the documented findings, assessment, and plan of care. Objective - Vital Signs Vital signs: Vital Signs Temp 97.9 F 06/19/23 07:04 Pulse 75 06/19/23 07:04 Resp 20 06/19/23 07:04 BP 112/71 06/19/23 07:04 Pulse Ox 98 06/19/23 07:04 FiO2 Intake & Output 06/18/23 06/19/23 06/19/23 18:59 06:59 18:59 Output Total 500 Balance -500 Output: Stool 500 Other: Voiding Method Toilet Toilet # Voids 1 - Labs CBC & Chem 7: 06/19/23 05:53 06/19/23 05:53 Labs: Abnormal Lab Results - Last 24 Hours (Table) 06/19/23 06/19/23 Range/Units 05:53 05:53 WBC 10.85 H (4.50-10.00) X 10*3/uL RBC 4.22 L (4.40-5.60) X 10*6/uL Hgb 9.1 L (13.0-17.0) g/dL Hct 30.9 L (39.6-50.0) % MCV 73.2 L (80.0-97.0) FL MCH 21.6 L (27.0-32.0) pg MCHC 29.4 L (32.0-37.0) g/dL RDW 19.2 H (11.5-14.5) % Eosinophils # (Manual) 0.43 H (0.04-0.35) X 10*3/uL Basophils # (Manual) 0.11 H (0.00-0.10) X 10*3/uL NRBC/100 WBC Diff 0.05 H (0.00-0.01) X 10*3/uL Hypochromasia (manual) 2+ A Microcytosis (manual) 2+ A Elliptocytes 2+ A BUN 6.5 L (9.0-27.0) mg/dL BUN/Creatinine Ratio 9.29 L (12.00-20.00) Ratio Calcium 8.6 L (8.7-10.3) mg/dL
--- NOTE | 2023-06-19 14:06 | P.PN ---
Subjective Progress Note Date: 06/19/23 Principal diagnosis: colon mass In follow-up today patient is reporting he is tolerating oral intake, no nausea, he is passing gas through the stoma, he denies any gross bleeding or abdominal pain. Objective - Vital Signs Vital signs: Vital Signs Temp 97.9 F 06/19/23 07:04 Pulse 75 06/19/23 07:04 Resp 20 06/19/23 07:04 BP 112/71 06/19/23 07:04 Pulse Ox 98 06/19/23 07:04 FiO2 Intake & Output 06/18/23 06/19/23 06/19/23 18:59 06:59 18:59 Output Total 500 Balance -500 Output: Stool 500 Other: Voiding Method Toilet Toilet # Voids 1 - Constitutional General appearance: Present: cooperative, no acute distress, obese - EENT Eyes: Present: anicteric sclerae, EOMI ENT: Present: hearing grossly normal - Respiratory Details: Respirations even and unlabored at rest - Cardiovascular Details: Radial pulse palpable 2+ - Gastrointestinal Gastrointestinal Comment(s): Midline incision General gastrointestinal: Present: distended, soft - Integumentary Integumentary: Present: pale - Neurologic Neurologic: Present: CNII-XII intact - Musculoskeletal Musculoskeletal: Present: generalized weakness, strength equal bilaterally - Psychiatric Psychiatric: Present: A&O x's 3, appropriate affect, intact judgment & insight - Labs CBC & Chem 7: 06/19/23 05:53 06/19/23 05:53 Labs: Abnormal Lab Results - Last 24 Hours (Table) 06/19/23 06/19/23 Range/Units 05:53 05:53 WBC 10.85 H (4.50-10.00) X 10*3/uL RBC 4.22 L (4.40-5.60) X 10*6/uL Hgb 9.1 L (13.0-17.0) g/dL Hct 30.9 L (39.6-50.0) % MCV 73.2 L (80.0-97.0) FL MCH 21.6 L (27.0-32.0) pg MCHC 29.4 L (32.0-37.0) g/dL RDW 19.2 H (11.5-14.5) % Eosinophils # (Manual) 0.43 H (0.04-0.35) X 10*3/uL Basophils # (Manual) 0.11 H (0.00-0.10) X 10*3/uL NRBC/100 WBC Diff 0.05 H (0.00-0.01) X 10*3/uL Hypochromasia (manual) 2+ A Microcytosis (manual) 2+ A Elliptocytes 2+ A BUN 6.5 L (9.0-27.0) mg/dL BUN/Creatinine Ratio 9.29 L (12.00-20.00) Ratio Calcium 8.6 L (8.7-10.3) mg/dL Assessment and Plan (1) Mass of colon Status: Acute Priority: High Code(s): K63.89 - OTHER SPECIFIED DISEASES OF INTESTINE SNOMED Code(s): 432592201 (2) Abdominal pain Status: Acute Priority: High Code(s): R10.9 - UNSPECIFIED ABDOMINAL PAIN SNOMED Code(s): 39529306 (3) Microcytic hypochromic anemia Status: Acute Priority: Medium Code(s): D50.9 - IRON DEFICIENCY ANEMIA, UNS PECIFIED SNOMED Code(s): 48861609 (4) Constipation Status: Acute Priority: High Code(s): K59.00 - CONSTIPATION, UNSPECIFIED SNOMED Code(s): 52007118 Plan: Mass of the colon -Reviewed with the patient final pathology report, no malignancy identified! -It is recommended that patient have full colonoscopy as well as upper endoscopy once he is adequately healed from surgery. Microcytic, hypochromic anemia -Iron studies reveal iron deficiency. -Dr. Bell will follow with patient in the outpatient setting for aggressive iron supplementation Did review the above plan with the patient. He is agreeable to the same. We will get him scheduled for iron in the outpatient setting in a few weeks. He will follow-up with Dr. Bell next month.
== END 2023-06-19 13:38 | disposition home health service (06) | DRG 330 ==
LOC: EC 01:18 → 5NMEDONC 04:43
PROVIDERS: ADMIT Family Medicine; ATTEND Family Medicine
PROC: 0D1M0Z4 Bypass Descending Colon to Cutaneous, Open Approach (ICD-10-PCS; 2023-06-13)
PROC: 0DTN0ZZ Resection of Sigmoid Colon, Open Approach (ICD-10-PCS; principal; 2023-06-13 09:55)
DX: K57.20 Diverticulitis of large intestine with perforation and abscess without bleeding (principal); K56.50 Intestinal adhesions [bands], unspecified as to partial versus complete obstruction; T81.32XA Disruption of internal operation (surgical) wound, not elsewhere classified, initial encounter; I10 Essential (primary) hypertension; D50.9 Iron deficiency anemia, unspecified; D53.9 Nutritional anemia, unspecified; K59.00 Constipation, unspecified; L29.9 Pruritus, unspecified; Z86.14 Personal history of Methicillin resistant Staphylococcus aureus infection; Z79.899 Other long term (current) drug therapy
CPT/HCPCS: 36415; 74177; 80048; 80053; 81003; 82150; 82607; 82728; 82746; 83540; 83550; 83605; 83690; 83921; 85025; 85027; 85045; 85610; 85730; 88309; 94760; 96361; 96374; 99285

== ENCOUNTER 2023-08-03 17:11 | Observation (INO) | payer BC ==
--- NOTE | 2023-08-03 18:11 | ED ---
Skin/Abscess/FB HPI - General Source: patient, RN notes reviewed Mode of arrival: ambulatory Limitations: no limitations <Shana Peterson - Last Filed: 08/03/23 18:10> - General Source: RN notes reviewed, old records reviewed Mode of arrival: ambulatory Limitations: no limitations - History of Present Illness MD complaint: abscess/boil, lesion -: days(s) Tetanus Up to Date: yes Location: face (It is not called lymphangitic can), genitals Severity: moderate Severity scale (1-10): 6 Consistency: constant (Know that all [place] bolus jerking) Improves with: none Worsens with: none Context: none Associated symptoms: denies other symptoms (That is now what you got), nausea, vomiting Treatments Prior to Arrival: none (Was looking for a wellness) <Magdiel Marsh - Last Filed: 08/03/23 19:49> - General Chief complaint: Skin/Abscess/Foreign Body Stated complaint: Infection, boils Time Seen by Provider: 08/03/23 17:30 - History of Present Illness Initial comments: Quick noteis a 53-year-old male presents emergency department chief complaint of skin infection on his face and abdomen. Patient states that he had a colostomy about 2 months ago. Patient visited with Dr. Alexander who recommended admission for IV antibiotics. Patient endorses fatigue. He denies fevers, nausea, vomiting. (Shana Peterson) This is a 53-year-old male to the ER for evaluation of a skin infection patient has abdomen and face infection with recent colostomy 2 months ago. Patient was sent in from the ER for IV antibiotics feels weak lightheaded and dizzy at times having some generalized pain (Magdiel Marsh) - Related Data Home Medications Medication Instructions Recorded Confirmed Citalopram Hydrobromide 20 mg PO DAILY 06/13/23 08/03/23 [Citalopram HBr] LORazepam [Ativan] 0.5 - 1.5 mg PO TID PRN 06/13/23 08/03/23 lisinopriL [Zestril] 10 mg PO DAILY 06/13/23 08/03/23 Ferrous Sulfate [Feosol] 325 mg PO DAILY 08/03/23 08/03/23 Allergies Allergy/AdvReac Type Severity Reaction Status Date / Time No Known Allergies Allergy Verified 06/13/23 07:58 Review of Systems ROS Other: All systems not noted in ROS Statement are negative. <Shana Peterson - Last Filed: 08/03/23 18:10> ROS Other: All systems not noted in ROS Statement are negative. <Magdiel Marsh - Last Filed: 08/03/23 19:49> ROS Statement: Those systems with pertinent positive or pertinent negative responses have been documented in the HPI. Past Medical History Past Medical History: Hypertension Additional Past Medical History / Comment(s): diverticulitis History of Any Multi-Drug Resistant Organisms: MRSA Date of last positivie culture/infection: 06/14/18 MDRO Source:: AXILLA Past Surgical History: Bowel Resection, Joint Replacement Additional Past Surgical History / Comment(s): R knee, cysts on buttock I&D, C5- 7 surgery with cage Nov 2021 Past Anesthesia/Blood Transfusion Reactions: Previous Problems w/ Anesthesia Additional Past Anesthesia/Blood Transfusion Reaction / Comment(s): Pressure drops and hard to wake up Past Psychological History: No Psychological Hx Reported Smoking Status: Never smoker Past Alcohol Use History: Occasional Past Drug Use History: None Reported - Past Family History Brother(s) Family Medical History: Diabetes Mellitus Mother Family Medical History: Diabetes Mellitus Father Family Medical History: Myocardial Infarction ([place]) Additional Family Medical History / Comment(s): [place] at 51 and one at 66 when he passed. <Shana Peterson - Last Filed: 08/03/23 18:10> General Exam Limitations: no limitations <Shana Peterson - Last Filed: 08/03/23 18:10> General appearance: alert, in no apparent distress Head exam: Present: atraumatic, normocephalic, normal inspection Eye exam: Present: normal appearance, PERRL, EOMI. Absent: scleral icterus, conjunctival injection, periorbital swelling ENT exam: Present: normal exam, mucous membranes moist Neck exam: Present: normal inspection. Absent: tenderness, meningismus, lymphadenopathy Respiratory exam: Present: normal lung sounds bilaterally. Absent: respiratory distress, wheezes, rales, rhonchi, stridor Cardiovascular Exam: Present: regular rate, normal rhythm, normal heart sounds. Absent: systolic murmur, diastolic murmur, rubs, gallop, clicks GI/Abdominal exam: Present: soft, normal bowel sounds. Absent: distended, tenderness, guarding, rebound, rigid Extremities exam: Present: normal inspection, full ROM, normal capillary refill. Absent: tenderness, pedal edema, joint swelling, calf tenderness Back exam: Present: normal inspection Neurological exam: Present: alert, oriented X3, CN II-XII intact Psychiatric exam: Present: normal affect, normal mood Skin exam: Present: warm, dry, intact, normal color. Absent: rash <Magdiel Marsh - Last Filed: 08/03/23 19:49> - General Exam Comments Initial Comments: Visual Physical Exam Vital signs reviewed General: Well-appearing, nontoxic, no acute distress. Head: Normocephalic, atraumatic Eyes: PERRLA, EOMI ENT: Airway patent Chest: Nonlabored breathing Skin: No visual rash, normal skin tone Neuro: Alert and oriented 3 Musculoskeletal: No gross abnormalities (Stieler,Shana) Course <Magdiel Marsh - Last Filed: 08/03/23 19:49> Vital Signs 08/03/23 17:22 Temperature 98.1 F Pulse Rate 98 Respiratory 20 Rate Blood Pressure 112/80 O2 Sat by Pulse 99 Oximetry - Reevaluation(s) Reevaluation #1: 08/03/23 19:33 Medical record is reviewed (Magdiel Marsh) Reevaluation #2: 08/03/23 19:33 Patient has no change in symptoms here in the ER (Magdiel Marsh) Reevaluation #3: 08/03/23 19:33 Patient informed of results questions answered (Magdiel Marsh) Reevaluation #4: Was pt. sent in by a medical professional or institution (, PA, MILITARY POLICE OFFICER, urgent care, hospital, or halfway...) When possible be specific @ -no Did you speak to anyone other than the patient for history (EMS, parent, family, police, friend...)? What history was obtained from this source @ -no Did you review nursing and triage notes (agree or disagree)? Why? @ -agree Are old charts reviewed (outside hosp., previous admission, EMS record, old EKG, old radiological studies, urgent care reports/EKG's, halfway records)? Report findings @ -yes Differential Diagnosis (chest pain, altered mental status, abdominal pain women, abdominal pain men, vaginal bleeding, weakness, fever, dyspnea, syncope, headache, dizziness, GI bleed, back pain, seizure, CVA, palpatations, mental health, musculoskeletal)? @ -prior EKG interpreted by me (3pts min.). @ -yes X-rays interpreted by me (1pt min.). @ -yes negative for acute disease CT interpreted by me (1pt min.). @ -no U/S interpreted by me (1pt. min.). @ -no What testing was considered but not performed or refused? (CT, X-rays, U/S, labs)? Why? @ -none What meds were considered but not given or refused? Why? @ -none Did you discuss the management of the patient with other professionals (professionals i.e. , PA, MILITARY POLICE OFFICER, lab, RT, psych nurse, social sciences department chair, svp digital ad sales, teacher, radiation officer, correctional case manager)? Give summary @ -no Was smoking cessation discussed for >3mins.? @ -no Was critical care preformed (if so, how long)? @ -no Were there social determinants of health that impacted care today? How? (Homelessness, low income, unemployed, alcoholism, drug addiction, transportation, low edu. Level, literacy, decrease access to med. care, retirement, rehab)? @ -none Was there de-escalation of care discussed even if they declined (Discuss DNR or withdrawal of care, Hospice)? DNR status @ -no What co-morbidities impacted this encounter? (DM, HTN, Smoking, COPD, CAD, Cancer, CVA, ARF, Chemo, Hep., AIDS, mental health diagnosis, sleep apnea, morbid obesity)? @ -none Was patient admitted / discharged? Hospital course, mention meds given and route, prescriptions, significant lab abnormalities, going to OR and other pertinent info. @ - Undiagnosed new problem with uncertain prognosis? @ -no Drug Therapy requiring intensive monitoring for toxicity (Heparin, Nitro, Insulin, Cardizem)? @ -no Were any procedures done? @ -no Diagnosis/symptom? @ - Acute, or Chronic, or Acute on Chronic? @ -Acute Uncomplicated (without systemic symptoms) or Complicated (systemic symptoms)? @ -Complicated Side effects of treatment? @ -no Exacerbation, Progression, or Severe Exacerbation? @ -exacerbation Poses a threat to life or bodily function? How? (Chest pain, [place], [place], pneumonia, PE, COPD, DKA, ARF, appy, cholecystitis, CVA, Diverticulitis, Homicidal, Suicidal, threat to staff... and all critical care pts) @ -yes (Magdiel Marsh) - Consultations Consultation #1: With Dr. Alexander who agrees to admit this patient (Magdiel Marsh) Medical Decision Making <Shana Peterson - Last Filed: 08/03/23 18:10> - Lab Data Result diagrams: 08/03/23 18:39 08/03/23 18:39 - EKG Data -: EKG Interpreted by Me (EKG is sinus 80 MI 195 QRS 90 QTc 388) <Magdiel Marsh - Last Filed: 08/03/23 19:49> - Medical Decision Making I completed the quick note portion of this chart signed Shana Peterson PA-C (Shana Peterson) 53 male to ER for evaluation [facility] of pain generalized pain with 2 areas of infection. Patient will be admitted for IV antibiotics and surgical evaluation as he is a recent postoperative patient for colectomy (Magdiel Marsh) - Lab Data Lab Results 08/03/23 08/03/23 Range/Units 18:39 18:39 WBC 9.5 (3.8-10.6) k/uL RBC 5.82 (4.30-5.90) m/uL Hgb 12.8 L (13.0-17.5) gm/dL Hct 42.3 (39.0-53.0) % MCV 72.7 L (80.0-100.0) fL MCH 22.0 L (25.0-35.0) pg MCHC 30.2 L (31.0-37.0) g/dL RDW 17.8 H (11.5-15.5) % Plt Count 370 (150-450) k/uL MPV 7.2 Neutrophils % 70 % Lymphocytes % 17 % Monocytes % 8 % Eosinophils % 2 % Basophils % 1 % Neutrophils # 6.6 (1.3-7.7) k/uL Lymphocytes # 1.6 (1.0-4.8) k/uL Monocytes # 0.8 (0-1.0) k/uL Eosinophils # 0.2 (0-0.7) k/uL Basophils # 0.1 (0-0.2) k/uL Hypochromasia Slight Anisocytosis Slight Microcytosis Moderate Sodium 138 (137-145) mmol/L Potassium 4.7 (3.5-5.1) mmol/L Chloride 102 (98-107) mmol/L Carbon Dioxide 26 (22-30) mmol/L Anion Gap 10 mmol/L BUN 9 (9-20) mg/dL Creatinine 0.66 (0.66-1.25) mg/dL Est GFR (CKD-EPI)AfAm >90 (>60 ml/min/1.73 sqM) Est GFR (CKD-EPI)NonAf >90 (>60 ml/min/1.73 sqM) Glucose 85 (74-99) mg/dL Calcium 9.7 (8.4-10.2) mg/dL Total Bilirubin 0.7 (0.2-1.3) mg/dL AST 25 (17-59) U/L ALT 19 (4-49) U/L Alkaline Phosphatase 90 (38-126) U/L Total Protein 8.0 (6.3-8.2) g/dL Albumin 4.6 (3.5-5.0) g/dL Disposition <Shana Peterson - Last Filed: 08/03/23 18:10> Is patient prescribed a controlled substance at d/c from ED?: No Time of Disposition: 19:35 <Magdiel Marsh - Last Filed: 08/03/23 19:49> Clinical Impression: Cellulitis, Facial cellulitis, Abdominal wall cellulitis, Abscess Disposition: ADMITTED IP TO THIS HOSP Condition: Fair
[2023-08-03] MEDS ORDERED: NALOXONE 0.4 MG/ML 1 ML VIAL IV PRN (19:22)
[2023-08-03] MEDS ORDERED: VANCOMYCIN IV PER PHARMACY 1 EACH MISC MISCELLANE PRN (19:22)
[2023-08-03] MEDS ORDERED: ONDANSETRON 4 MG/2 ML VIAL IVP PRN (19:22)
[2023-08-03] MEDS ORDERED: MORPHINE SULFATE 4 MG/ML SYRINGE IV PRN (19:22)
[2023-08-03 19:23] LABS: Anisocytosis Slight; Basophils # (A) 0.1 k/uL (0-0.2); Basophils % (A) 1 %; Eosinophils # (A) 0.2 k/uL (0-0.7); Eosinophils % (A) 2 %; HCT 42.3 % (39.0-53.0); HGB 12.8 gm/dL (13.0-17.5); Hypochromasia Slight; Lymphocytes # (A) 1.6 k/uL (1.0-4.8); Lymphocytes % (A) 17 %; MCHC 30.2 g/dL (31.0-37.0); MCV 72.7 fL (80.0-100.0); Mean Platelet Volume 7.2; Microcytosis Moderate; Monocytes # (A) 0.8 k/uL (0-1.0); Monocytes % (A) 8 %; Neutrophils # (A) 6.6 k/uL (1.3-7.7); Neutrophils % (A) 70 %; Platelet Count 370 k/uL (150-450); RBC 5.82 m/uL (4.30-5.90); RDW 17.8 % (11.5-15.5); WBC 9.5 k/uL (3.8-10.6)
[2023-08-03 19:45] LABS: ALT 19 U/L (4-49); AST 25 U/L (17-59); African American GFR (CKD) >90 (>60 ml/min/1.73 sqM); Albumin 4.6 g/dL (3.5-5.0); Alkaline Phosphatase 90 U/L (38-126); Anion Gap 10 mmol/L; Blood Urea Nitrogen 9 mg/dL (9-20); Calcium 9.7 mg/dL (8.4-10.2); Carbon Dioxide 26 mmol/L (22-30); Chloride 102 mmol/L (98-107); Glucose 85 mg/dL (74-99); Non-African American GFR(CKD) >90 (>60 ml/min/1.73 sqM); Potassium 4.7 mmol/L (3.5-5.1); Sodium 138 mmol/L (137-145); Total Bilirubin 0.7 mg/dL (0.2-1.3)
[2023-08-03] MEDS ORDERED: VANCOMYCIN 2,000 MG in SODIUM CHLORIDE 0.9% 500 ML 500 ML IVPB STA (19:45)
[2023-08-03] MEDS: ONDANSETRON 4 MG/2 ML VIAL IVP STA (20:12)
[2023-08-03] MEDS: MORPHINE SULFATE 4 MG/ML SYRINGE IV STA (20:13)
[2023-08-03] MEDS: SODIUM CHLORIDE 0.9% 500 ML 500 ML IV STA (20:13)
[2023-08-03 20:40] LABS: Magnesium 2.1 mg/dL (1.6-2.3); Phosphorus 4.3 mg/dL (2.5-4.5)
[2023-08-03 20:44] LABS: Partial Thromboplastin Time 24.1 sec (22.0-30.0); Prothrombin Time 10.6 sec (10.0-12.5)
[2023-08-03] MEDS: VANCOMYCIN 2,000 MG in SODIUM CHLORIDE 0.9% 500 ML 500 ML IVPB STA (21:10)
[2023-08-03] MEDS: SODIUM CHLORIDE 0.9% 1,000 ML IV STA (21:11)
--- NOTE | 2023-08-03 21:45 | XR ---
EXAMINATION TYPE: XR chest 2V DATE OF EXAM: 08/03/2023 COMPARISON: NONE HISTORY: Weakness TECHNIQUE: Frontal and lateral views of the chest are obtained. FINDINGS: There is no focal air space opacity, pleural effusion, or pneumothorax seen. The cardiac silhouette size is within normal limits. The osseous structures are intact. IMPRESSION: No acute cardiopulmonary process.
[2023-08-04] MEDS: VANCOMYCIN 1,750 MG in SODIUM CHLORIDE 0.9% 500 ML 500 ML IVPB SCH (05:44)
[2023-08-04 08:40] LABS: Basophils # (A) 0.05 X 10*3/uL (0.00-0.10); Basophils % (A) 0.6 %; Eosinophils # (A) 0.16 X 10*3/uL (0.04-0.35); HCT 37.7 % (39.6-50.0); HGB 11.3 g/dL (13.0-17.0); Lymphocytes # (A) 1.02 X 10*3/uL (0.90-5.00); Lymphocytes % (A) 12.8 %; MCH 22.1 pg (27.0-32.0); MCV 73.6 FL (80.0-97.0); Mean Platelet Volume 9.4 FL (9.5-12.2); Monocytes # (A) 0.77 X 10*3/uL (0.20-1.00); Monocytes % (A) 9.6 %; NRBC Per 100 WBC 0 X 10*3/uL (0.00-0.01); Neutrophils # (A) 5.94 X 10*3/uL (1.80-7.70); Neutrophils % (A) 74.5 %; Platelet Count 316 X 10*3/uL (140-440); RBC 5.12 X 10*6/uL (4.40-5.60); RDW 19.6 % (11.5-14.5); WBC 7.98 X 10*3/uL (4.50-10.00)
[2023-08-04 08:41] LABS: ALT 15 U/L (10-49); AST 15 U/L (14-35); Albumin 4.1 g/dL (3.8-4.9); Albumin/Globulin Ratio 1.64 Ratio (1.60-3.17); Alkaline Phosphatase 72 U/L (41-126); BUN/Creat Ratio 11.12 Ratio (12.00-20.00); Blood Urea Nitrogen 8.9 mg/dL (9.0-27.0); Calcium 8.9 mg/dL (8.7-10.3); Carbon Dioxide 25.3 mmol/L (21.6-31.8); Chloride 106 mmol/L (96-109); Globulin 2.5 g/dL (1.6-3.3); Glucose 103 mg/dL (70-110); Potassium 4.5 mmol/L (3.5-5.5); Sodium 144 mmol/L (135-145); Total Bilirubin 0.4 mg/dL (0.3-1.2); Total Protein 6.6 g/dL (6.2-8.2)
--- NOTE | 2023-08-04 15:29 | P.GSCN ---
History of Present Illness Consult date: 08/04/23 History of present illness: CHIEF COMPLAINT: Skin infection on abdominal wall and face HISTORY OF PRESENT ILLNESS: This is a 53-year-old male who presented to the hospital with complaints of skin infection on the right side of his abdominal wall and face x 3 days. Patient reports the abdomen skin infection is draining. He denies any history of diabetes. Denies any history of MRSA. He is status post sigmoid resection with end colostomy for diverticulitis with abscess on June 13, 2023. His surgical incision site has healed nicely. His ostomy is functioning. He is afebrile. PAST MEDICAL HISTORY: See below PAST SURGICAL HISTORY: See below MEDICATIONS: See below ALLERGIES: See below SOCIAL HISTORY: No illicit drug use. REVIEW OF SYSTEMS: CONSTITUTIONAL: Denies fever or chills. HEENT: Denies blurred vision, vision changes, or eye pain. Denies hemoptysis CARDIOVASCULAR: Denies chest pain or pressure. RESPIRATORY: No shortness of breath. GASTROINTESTINAL: See HPI for pertinent findings HEMATOLOGIC: Denies bleeding disorders. GENITOURINARY: Denies any blood in urine or increased urinary frequency. SKIN: Denies pruitis. Denies rash. PHYSICAL EXAM: VITAL SIGNS: Reviewed GENERAL: Well-developed in no acute distress. HEENT: Patient with small bump right cheek no drainage. Firm with palpation mild erythema and induration. No fluctuance ABDOMEN: Soft. Nondistended. Incision site clean dry and intact. Ostomy is functioning with stool present in bag. Lower right abdominal wall cellulitis changes with small amount of purulent drainage. NEUROLOGIC: Alert and oriented. Cranial nerves II through XII grossly intact. LABORATORY DATA: WBC 7.98 Hgb 11.3 platelets 316 IMAGING: ASSESSMENT: 1. Lower right abdominal wall cellulitis with purulent drainage and right facial cheek cellulitis with induration PLAN: -No surgical intervention planned -Continue antibiotics. Agree with vancomycin -Consult infectious disease -Culture of drainage from abdominal wall ordered Physician Licensed Practical Nurse note has been reviewed by physician. Signing provider agrees with the documented findings, assessment, and plan of care. Past Medical History Past Medical History: Hypertension Additional Past Medical History / Comment(s): diverticulitis History of Any Multi-Drug Resistant Organisms: MRSA Year Discovered:: 06/14/18 MDRO Source:: AXILLA Past Surgical History: Bowel Resection, Joint Replacement Additional Past Surgical History / Comment(s): R knee, cysts on buttock I&D, C5- 7 surgery with cage Nov 2021 Past Anesthesia/Blood Transfusion Reactions: Previous Problems w/ Anesthesia Additional Past Anesthesia/Blood Transfusion Reaction / Comm: Pressure drops and hard to wake up Past Psychological History: No Psychological Hx Reported Smoking Status: Never smoker Past Alcohol Use History: Occasional Past Drug Use History: None Reported - Past Family History Brother(s) Family Medical History: Diabetes Mellitus Mother Family Medical History: Diabetes Mellitus Father Family Medical History: Myocardial Infarction ([place]) Additional Family Medical History / Comment(s): [place] at 51 and one at 66 when he passed. Medications and Allergies Home Medications Medication Instructions Recorded Confirmed Type Citalopram Hydrobromide 20 mg PO DAILY 06/13/23 08/03/23 History [Citalopram HBr] LORazepam [Ativan] 0.5 - 1.5 mg PO TID PRN 06/13/23 08/03/23 History lisinopriL [Zestril] 10 mg PO DAILY 06/13/23 08/03/23 History Ferrous Sulfate [Feosol] 325 mg PO DAILY 08/03/23 08/03/23 History Allergies Allergy/AdvReac Type Severity Reaction Status Date / Time No Known Allergies Allergy Verified 06/13/23 07:58 Surgical - Exam Vital Signs Temp Pulse Resp BP Pulse Ox 98.1 F 98 20 112/80 99 08/03/23 17:22 08/03/23 17:22 08/03/23 17:22 08/03/23 17:22 08/03/23 17:22 Results - Labs 08/04/23 06:14 08/04/23 06:14 Abnormal Lab Results - Last 24 Hours (Table) 08/03/23 08/04/23 08/04/23 Range/Units 18:39 06:14 06:14 Hgb 12.8 L 11.3 L (13.0-17.5) gm/dL Hct 37.7 L (39.6-50.0) % MCV 72.7 L 73.6 L (80.0-100.0) fL MCH 22.0 L 22.1 L (25.0-35.0) pg MCHC 30.2 L 30.0 L (31.0-37.0) g/dL RDW 17.8 H 19.6 H (11.5-15.5) % MPV 9.4 L (9.5-12.2) FL Anion Gap 12.70 H (4.00-12.00) mmol/L BUN 8.9 L (9.0-27.0) mg/dL BUN/Creatinine Ratio 11.12 L (12.00-20.00) Ratio Diabetes panel 08/03/23 08/04/23 Range/Units 18:39 06:14 Sodium 138 144 (137-145) mmol/L Potassium 4.7 4.5 (3.5-5.1) mmol/L Chloride 102 106 (98-107) mmol/L Carbon Dioxide 26 25.3 (22-30) mmol/L BUN 9 8.9 L (9-20) mg/dL Creatinine 0.66 0.8 (0.66-1.25) mg/dL Glucose 85 103 (74-99) mg/dL Calcium 9.7 8.9 (8.4-10.2) mg/dL AST 25 15 (17-59) U/L ALT 19 15 (4-49) U/L Alkaline Phosphatase 90 72 (38-126) U/L Total Protein 8.0 6.6 (6.3-8.2) g/dL Albumin 4.6 4.1 (3.5-5.0) g/dL Calcium panel 08/03/23 08/03/23 08/04/23 Range/Units 18:39 20:17 06:14 Calcium 9.7 8.9 (8.4-10.2) mg/dL Phosphorus 4.3 (2.5-4.5) mg/dL Albumin 4.6 4.1 (3.5-5.0) g/dL Pituitary panel 08/03/23 08/04/23 Range/Units 18:39 06:14 Sodium 138 144 (137-145) mmol/L Potassium 4.7 4.5 (3.5-5.1) mmol/L Chloride 102 106 (98-107) mmol/L Carbon Dioxide 26 25.3 (22-30) mmol/L BUN 9 8.9 L (9-20) mg/dL Creatinine 0.66 0.8 (0.66-1.25) mg/dL Glucose 85 103 (74-99) mg/dL Calcium 9.7 8.9 (8.4-10.2) mg/dL Adrenal panel 08/03/23 08/04/23 Range/Units 18:39 06:14 Sodium 138 144 (137-145) mmol/L Potassium 4.7 4.5 (3.5-5.1) mmol/L Chloride 102 106 (98-107) mmol/L Carbon Dioxide 26 25.3 (22-30) mmol/L BUN 9 8.9 L (9-20) mg/dL Creatinine 0.66 0.8 (0.66-1.25) mg/dL Glucose 85 103 (74-99) mg/dL Calcium 9.7 8.9 (8.4-10.2) mg/dL Total Bilirubin 0.7 0.4 (0.2-1.3) mg/dL AST 25 15 (17-59) U/L ALT 19 15 (4-49) U/L Alkaline Phosphatase 90 72 (38-126) U/L Total Protein 8.0 6.6 (6.3-8.2) g/dL Albumin 4.6 4.1 (3.5-5.0) g/dL
[2023-08-04] MEDS: lisinopriL 10 MG TAB PO SCH (20:43)
[2023-08-04] MEDS: CITALOPRAM HYDROBROMIDE 20 MG TAB PO SCH (20:43)
--- NOTE | 2023-08-04 21:49 | P.CONS ---
History of Present Illness - Reason for Consult Consult date: 08/04/23 - History of Present Illness Patient is a 53-year-old male with a past medical history significant for recent sigmoid resection with end colostomy for diverticulitis with abscess on June 13, 2023, patient now presenting to [facility] ER concerning for a painful lump to the right cheek and right lower abdominal area patient mention it started as a small pimple that has progressively increased in size o william the last few days patient complaining of pain describing it to be throbbing moderate intensity without radiation with associated swelling denies any purulent drainage similar symptoms with the right lower abdominal area of abscess with the symptoms the patient was evaluated on presentation to the hospital patient was afebrile and no fever have been recorded subsequently patient was not tachycardic hypotensive or hypoxic white count of 9.5 creatinine was 0.66 electrolytes has been normal liver enzymes are normal patient did have a blood cultures obtained which are currently pending patient was started on ceftriaxone and vancomycin infectious he was consulted for further management of antibiotic therapy Past Medical History Past Medical History: Hypertension Additional Past Medical History / Comment(s): diverticulitis History of Any Multi-Drug Resistant Organisms: MRSA Year Discovered:: 06/14/18 MDRO Source:: AXILLA Past Surgical History: Bowel Resection, Joint Replacement Additional Past Surgical History / Comment(s): R knee, cysts on buttock I&D, C5- 7 surgery with cage Nov 2021 Past Anesthesia/Blood Transfusion Reactions: Previous Problems w/ Anesthesia Additional Past Anesthesia/Blood Transfusion Reaction / Comm: Pressure drops and hard to wake up Past Psychological History: No Psychological Hx Reported Smoking Status: Never smoker Past Alcohol Use History: Occasional Past Drug Use History: None Reported - Past Family History Brother(s) Family Medical History: Diabetes Mellitus Mother Family Medical History: Diabetes Mellitus Father Family Medical History: Myocardial Infarction ([place]) Additional Family Medical History / Comment(s): [place] at 51 and one at 66 when he passed. Medications and Allergies Home Medications Medication Instructions Recorded Confirmed Type Citalopram Hydrobromide 20 mg PO DAILY 06/13/23 08/03/23 History [Citalopram HBr] LORazepam [Ativan] 0.5 - 1.5 mg PO TID PRN 06/13/23 08/03/23 History lisinopriL [Zestril] 10 mg PO DAILY 06/13/23 08/03/23 History Ferrous Sulfate [Feosol] 325 mg PO DAILY 08/03/23 08/03/23 History Allergies Allergy/AdvReac Type Severity Reaction Status Date / Time No Known Allergies Allergy Verified 06/13/23 07:58 Physical Exam Vitals: Vital Signs Temp Pulse Pulse Resp BP BP Pulse Ox 08/04/23 13:03 98.2 F 86 18 126/79 92 L 08/04/23 07:11 98.0 F 77 18 129/74 98 08/04/23 02:00 98.1 F 79 16 126/75 94 L 08/03/23 23:23 98.8 F 98 16 128/80 99 08/03/23 22:23 98.8 F 92 18 146/98 97 08/03/23 21:12 80 16 133/88 95 08/03/23 20:10 87 16 143/91 97 08/03/23 17:22 98.1 F 98 20 112/80 99 Intake and Output 08/03/23 08/04/23 08/04/23 22:59 06:59 14:59 Intake Total 590 Balance 590 Intake: Oral 590 Other: # Voids 1 Weight 112.037 kg Results CBC & Chem 7: 08/04/23 06:14 08/04/23 06:14 Labs: Abnormal Lab Results - Last 24 Hours (Table) 08/03/23 08/04/23 08/04/23 Range/Units 18:39 06:14 06:14 Hgb 12.8 L 11.3 L (13.0-17.5) gm/dL Hct 37.7 L (39.6-50.0) % MCV 72.7 L 73.6 L (80.0-100.0) fL MCH 22.0 L 22.1 L (25.0-35.0) pg MCHC 30.2 L 30.0 L (31.0-37.0) g/dL RDW 17.8 H 19.6 H (11.5-15.5) % MPV 9.4 L (9.5-12.2) FL Anion Gap 12.70 H (4.00-12.00) mmol/L BUN 8.9 L (9.0-27.0) mg/dL BUN/Creatinine Ratio 11.12 L (12.00-20.00) Ratio Assessment and Plan Plan: 1patient presented to hospital with a painful lump to the right cheek and right lower abdominal area that started as a pimple more likely related to staphylococcal infection with folliculitis progressing into abscess 2-await surgical drainage and deep culture 3-vancomycin pharmacy to dose target trough of 15 while watching kidney function and Vanco trough closely We will follow on clinical condition and cultures to further adjust medication if needed Thank you for this consultation we will follow the patient along with you Dictation was produced using [employer] dictation software. please excuse any grammatical, word or spelling errors. Time with Patient: Greater than 30
[2023-08-05] MEDS: FERROUS SULFATE 325 MG TAB PO SCH (10:06)
--- NOTE | 2023-08-05 12:25 | P.HPIM ---
History of Present Illness H&P Date: 08/05/23 This is a pleasant 53-year-old male who follows with Dr. Alexander patient was brought into the hospital on second in the evening secondary to 3 days of pain and redness from his right side of his face as well as his right lower abdomen. Patient appears to have an area of induration on his right lower abdomen with a cellulitic changes to the surrounding skin. This was draining and was cultured additionally the face has an area of induration and cellulitic changes surrounding what appears to be the abscess as well. Infectious disease and general surgery are following. Patient has been started empirically on IV vancomycin as he does have a history of MRSA in the past. Patient was recently mid to the hospital back in June of this year and underwent a sigmoid colon resection with end colostomy secondary to diverticulitis and abscess and the surgical incision appears to be well-healed with no areas of redness or drainage. Patient is making stool from the ostomy. He has not been having fe vers or chills he denies any shortness of breath no dizziness or lightheadedness. He is alert x 3. He is evaluated today on the medical floor resting in bed. He reports no acute pain. He has not had any elevated white blood cell count, his renal function remains stable with a BUN of 9 and a crea tinine of 0.66. Patient is been afebrile. He will remain inpatient IV antibiotics pending wound cultures. REVIEW OF SYSTEMS: CONSTITUTIONAL: No fever, no malaise, no fatigue. HEENT: No recent visual problems or hearing problems. Denied any sore throat. CARDIOVASCULAR: No chest pain, orthopnea, PND, no palpitations, no syncope. PULMONARY: No shortness of breath, no cough, no hemoptysis. GASTROINTESTINAL: No diarrhea, no nausea, no vomiting, no abdominal pain. NEUROLOGICAL: No headaches, no weakness, no numbness. HEMATOLOGICAL: Denies any bleeding or petechiae. GENITOURINARY: Denies any burning micturition, frequency, or urgency. MUSCULOSKELETAL/RHEUMATOLOGICAL: Denies any joint pain, swelling, or any muscle pain. ENDOCRINE: Denies any polyuria or polydipsia. The rest of the 14-point review of systems is negative. PHYSICAL EXAMINATION: GENERAL: The patient is alert and oriented x3, not in any acute distress. Well developed, well nourished. HEENT: Pupils are round and equally reacting to light. EOMI. No scleral icterus. No conjunctival pallor. Normocephalic, atraumatic. No pharyngeal erythema. No thyromegaly. CARDIOVASCULAR: S1 and S2 present. No murmurs, rubs, or gallops. PULMONARY: Chest is clear to auscultation, no wheezing or crackles. ABDOMEN: Soft, nontender, nondistended, normoactive bowel sounds. No palpable organomegaly. MUSCULOSKELETAL: No joint swelling or deformity. EXTREMITIES: No cyanosis, clubbing, or pedal edema. NEUROLOGICAL: Gross neurological examination did not reveal any focal deficits. SKIN: No rashes. As mentioned above patient has an area of redness and induration to the right lower abdomen as well as the right face. Assessment and plan Cellulitis of the right face and right lower abdomen with abscess to both patient does have a history of MRSA. Cultures were taken and patient is currently on IV vancomycin with ID following the cultures. History of hypertension pressure is on the lower end systolic patient will continue lisinopril and dose was decreased to 5 mg daily. history of diverticulitis/aminal abscess requiring sigmoid colon resection and end colostomy back in June 2023. Obesity GI prophylaxis DVT prophylaxis Full code The impression and plan of care has been dictated by Cherry Henley, Nurse Practitioner as directed. Dr. Yasir MD I have performed a history and physical examination and medical decision making of this patient, discussed the same with the dictator, and agree with the dictators assessment and plan as written, documented as a scribe. Based on total visit time, I have performed more than 50% of this visit. Past Medical History Past Medical History: Hypertension Additional Past Medical History / Comment(s): diverticulitis History of Any Multi-Drug Resistant Organisms: MRSA Date of last positivie culture/infection: 06/14/18 MDRO Source:: AXILLA Past Surgical History: Bowel Resection, Joint Replacement Additional Past Surgical History / Comment(s): R knee, cysts on buttock I&D, C5- 7 surgery with cage Nov 2021 Past Anesthesia/Blood Transfusion Reactions: Previous Problems w/ Anesthesia Additional Past Anesthesia/Blood Transfusion Reaction / Comment(s): Pressure drops and hard to wake up Past Psychological History: No Psychological Hx Reported Smoking Status: Never smoker Past Alcohol Use History: Occasional Past Drug Use History: None Reported - Past Family History Brother(s) Family Medical History: Diabetes Mellitus Mother Family Medical History: Diabetes Mellitus Father Family Medical History: Myocardial Infarction ([place]) Additional Family Medical History / Comment(s): [place] at 51 and one at 66 when he passed. Medications and Allergies Home Medications Medication Instructions Recorded Confirmed Type Citalopram Hydrobromide 20 mg PO DAILY 06/13/23 08/03/23 History [Citalopram HBr] LORazepam [Ativan] 0.5 - 1.5 mg PO TID PRN 06/13/23 08/03/23 History lisinopriL [Zestril] 10 mg PO DAILY 06/13/23 08/03/23 History Ferrous Sulfate [Feosol] 325 mg PO DAILY 08/03/23 08/03/23 History Allergies Allergy/AdvReac Type Severity Reaction Status Date / Time No Known Allergies Allergy Verified 06/13/23 07:58 Physical Exam Vitals: Vital Signs Temp Pulse Resp BP Pulse Ox 08/05/23 07:07 97.8 F 68 18 115/76 96 08/05/23 01:48 98.4 F 71 20 124/73 97 08/04/23 19:10 98.9 F 95 18 162/79 96 08/04/23 13:03 98.2 F 86 18 126/79 92 L Intake and Output 08/04/23 08/05/23 08/05/23 22:59 06:59 14:59 Other: Voiding Method Toilet # Voids 2 Results CBC & Chem 7: 08/04/23 06:14 08/04/23 06:14 Labs: Microbiology - Last 24 Hours (Table) 08/03/23 18:30 Blood Culture - Preliminary Blood 08/03/23 18:15 Blood Culture - Preliminary Blood Thrombosis Risk Factor Assmnt - Choose All That Apply Any of the Below Risk Factors Present?: Yes Each Factor Represents 1 point: Age 41-60 years, Obesity (BMI >25) Other Risk Factors: No Other congenital or acquired thrombophilia - If yes, enter type in comment: No Thrombosis Risk Factor Assessment Total Risk Factor Score: 2 Thrombosis Risk Factor Assessment Level: Low Risk Assessment and Plan Time with Patient: Less than 30
[2023-08-05] MEDS: VANCOMYCIN TROUGH DUE 1 EACH MISC MISCELLANE ONE (12:48)
--- NOTE | 2023-08-05 13:45 | P.PN ---
Subjective Progress Note Date: 08/05/23 NAEON. Patient states that the erythema around is abdomen is improving. No N/V. No F/C. Admits to ostomy output with stool and gas. Tolerating diet. Objective - Vital Signs Vital signs: Vital Signs Temp 98.1 F 08/05/23 11:35 Pulse 75 08/05/23 11:35 Resp 18 08/05/23 11:35 BP 130/72 08/05/23 11:35 Pulse Ox 96 08/05/23 11:35 FiO2 Intake & Output 08/04/23 08/05/23 08/05/23 18:59 06:59 18:59 Other: Voiding Method Toilet # Voids 2 - Exam NAEON. No N/V. No worsening abdominal pain. No F/C. No SOB or CP. Admits to flatus no BM. Tolerating diet. GEN: AxO, NAD Pulm: non-labored respirations Abd: soft, non-tender, non-distended. No guarding/rebound/rigidity. Mild erythema seen over inferior aspect of abdomen Ostomy: pink and patent gas and stool seen in ostomy appliance Extrem: no edema seen - Labs CBC & Chem 7: 08/04/23 06:14 08/04/23 06:14 Labs: Microbiology - Last 24 Hours (Table) 08/03/23 18:30 Blood Culture - Preliminary Blood 08/03/23 18:15 Blood Culture - Preliminary Blood Assessment and Plan Assessment: Patient is a 53M with recent history of cruzito's procedure who presents with abdominal wall erythema, now resolving. Plan: -Diet as tolerated -IVF hydration -IV abx -PRN pain and nausea control -DVT/Gi PPx -No acute surgical intervention Darrin Herzog MD General Surgery
[2023-08-05] MEDS ORDERED: VANCOMYCIN 2,000 MG in SODIUM CHLORIDE 0.9% 500 ML 500 ML IVPB SCH (14:00)
[2023-08-05] MEDS: VANCOMYCIN 2,000 MG in SODIUM CHLORIDE 0.9% 500 ML 500 ML IVPB SCH (15:56)
[2023-08-05] MEDS: HEPARIN SODIUM,PORCINE 5,000 UNIT/ML 1 ML VIAL SQ SCH (19:55)
[2023-08-06] MEDS: PANTOPRAZOLE 40 MG TABLET PO SCH (05:28)
[2023-08-06 07:04] LABS: African American GFR (CKD) >90 (>60 ml/min/1.73 sqM); Anion Gap 8 mmol/L; Blood Urea Nitrogen 9 mg/dL (9-20); Calcium 8.8 mg/dL (8.4-10.2); Carbon Dioxide 24 mmol/L (22-30); Chloride 106 mmol/L (98-107); Glucose 87 mg/dL (74-99); Non-African American GFR(CKD) >90 (>60 ml/min/1.73 sqM); Potassium 4.2 mmol/L (3.5-5.1); Sodium 138 mmol/L (137-145)
[2023-08-06] MEDS: lisinopriL 5 MG TAB PO SCH (08:37)
--- NOTE | 2023-08-06 15:52 | P.PN ---
Subjective Progress Note Date: 08/06/23 This is a pleasant 53-year-old male who follows with Dr. Alexander patient was brought into the hospital on second in the evening secondary to 3 days of pain and redness from his right side of his face as well as his right lower abdomen. Patient appears to have an area of induration on his right lower abdomen with a cellulitic changes to the surrounding skin. This was draining and was cultured additionally the face has an area of induration and cellulitic changes surrounding what appears to be the abscess as well. Infectious disease and general surgery are following. Patient has been started empirically on IV vancomycin as he does have a history of MRSA in the past. Patient was recently mid to the hospital back in June of this year and underwent a sigmoid colon resection with end colostomy secondary to diverticulitis and abscess and the surgical incision appears to be well-healed with no areas of redness or drainage. Patient is making stool from the ostomy. He has not been having fevers or chills he denies any shortness of breath no dizziness or lightheadedness. He is alert x 3. He is evaluated today on the medical floor resting in bed. He reports no acute pain. He has not had any elevated white blood cell count, his renal function remains stable with a BUN of 9 and a creatinine of 0.66. Patient is been afebrile. He will remain inpatient IV antibiotics pending wound cultures. 08/06/2023 Patient is evaluated today on the medical floor. Abscess to the abdomen is no longer draining and about 2 in wide area of induration remains with surrounding erythema. Cultures are showing presumptive MRSA and patient continues on course of IV vancomycin with ID following cultures. Patient concerned as he is pending potention colostomy reversal. His blood work today is WNL. REVIEW OF SYSTEMS: CONSTITUTIONAL: No fever, no malaise, no fatigue. HEENT: No recent visual problems or hearing problems. Denied any sore throat. CARDIOVASCULAR: No chest pain, orthopnea, PND, no palpitations, no syncope. PULMONARY: No shortness of breath, no cough, no hemoptysis. GASTROINTESTINAL: No diarrhea, no nausea, no vomiting, no abdominal pain. NEUROLOGICAL: No headaches, no weakness, no numbness. PHYSICAL EXAMINATION: GENERAL: The patient is alert and oriented x3, not in any acute distress. Well developed, well nourished. HEENT: Pupils are round and equally reacting to light. EOMI. No scleral icterus. No conjunctival pallor. Normocephalic, atraumatic. No pharyngeal erythema. No thyromegaly. CARDIOVASCULAR: S1 and S2 present. No murmurs, rubs, or gallops. PULMONARY: Chest is clear to auscultation, no wheezing or crackles. ABDOMEN: Soft, nontender, nondistended, normoactive bowel sounds. No palpable organomegaly. MUSCULOSKELETAL: No joint swelling or deformity. EXTREMITIES: No cyanosis, clubbing, or pedal edema. NEUROLOGICAL: Gross neurological examination did not reveal any focal deficits. SKIN: No rashes. As mentioned above patient has an area of redness and in duration to the right lower abdomen as well as the right face. Assessment and plan Cellulitis of the right face and right lower abdomen with abscess to both patient does have a history of MRSA. Cultures were taken showing presumptive MRSA and patient is currently on IV vancomycin with ID following the cultures. History of hypertension pressure is on the lower end systolic patient will continue lisinopril and dose was decreased to 5 mg daily. history of diverticulitis/abdominal abscess requiring sigmoid colon resection and end colostomy back in June 2023. Obesity GI prophylaxis DVT prophylaxis Full code The impression and plan of care has been dictated by Cherry Henley, Nurse Practitioner as directed. Dr. Yasir MD I have performed a history and physical examination and medical decision making of this patient, discussed the same with the dictator, and agree with the dictators assessment and plan as written, documented as a scribe. Based on total visit time, I have performed more than 50% of this visit. Objective - Vital Signs Vital signs: Vital Signs Temp 97.7 F 08/06/23 11:21 Pulse 72 08/06/23 11:21 Resp 18 08/06/23 11:21 BP 124/75 08/06/23 11:21 Pulse Ox 94 L 08/06/23 11:21 FiO2 Intake & Output 08/05/23 08/06/23 08/06/23 18:59 06:59 18:59 Intake Total 500 Balance 500 Intake: Intake, IV Titration 500 Amount Vancomycin 2,000 mg In 500 Sodium Chloride 0.9% 500 ml 500 ml @ 167 mls/hr IVPB Q12H [facility] Rx#: [id number] Other: Voiding Method Toilet # Voids 3 - Labs CBC & Chem 7: 08/04/23 06:14 08/06/23 05:43 Labs: Microbiology - Last 24 Hours (Table) 08/03/23 18:30 Blood Culture - Preliminary Blood 08/03/23 18:15 Blood Culture - Preliminary Blood 08/04/23 15:47 Wound Culture - Preliminary Face Presumptive MRSA Assessment and Plan Time with Patient: Less than 30
--- NOTE | 2023-08-06 17:13 | P.PN ---
Subjective Progress Note Date: 08/06/23 Patient is being seen for abscess of the abdomen and face. He reports improvement of his symptoms. Exam: Face: 8 mm bullae of the right lower cheek. No cellulitis. Abdomen: 2 cm cellulitis of the right lower quadrant without drainage. Assessment: 1. Abscess of the face 2. Abscess of the abdomen Plan: 1. Continue IV antibiotics as he demonstrates improvement 2. Await cultures for antibiotic management Objective - Vital Signs Vital signs: Vital Signs Temp 97.7 F 08/06/23 11:21 Pulse 72 08/06/23 11:21 Resp 18 08/06/23 11:21 BP 124/75 08/06/23 11:21 Pulse Ox 94 L 08/06/23 11:21 FiO2 Intake & Output 08/05/23 08/06/23 08/06/23 18:59 06:59 18:59 Intake Total 500 Balance 500 Intake: Intake, IV Titration 500 Amount Vancomycin 2,000 mg In 500 Sodium Chloride 0.9% 500 ml 500 ml @ 167 mls/hr IVPB Q12H [facility] Rx#: [id number] Other: Voiding Method Toilet # Voids 3 - Labs CBC & Chem 7: 08/04/23 06:14 08/06/23 05:43 Labs: Microbiology - Last 24 Hours (Table) 08/03/23 18:30 Blood Culture - Preliminary Blood 08/03/23 18:15 Blood Culture - Preliminary Blood 08/04/23 15:47 Wound Culture - Preliminary Face Presumptive MRSA
[2023-08-06] MEDS: VANCOMYCIN 2,000 MG in SODIUM CHLORIDE 0.9% 500 ML 500 ML IVPB SCH (18:18)
--- NOTE | 2023-08-06 18:53 | P.PN ---
Subjective Progress Note Date: 08/05/23 Principal diagnosis: Reason for follow-up is right facial and abdominal wall abscess cellulitis Patient is a 53-year-old male with a past medical history significant for recent sigmoid resection with end colostomy for diverticulitis with abscess on June 13, 2023, patient now presenting to [facility] ER concerning for a painful lump to the right cheek and right lower abdominal area patient has been diagnosed with a right cheek and abdominal wall cellulitis. On today's evaluation that is 08/05/2023,the patient denies any fever or any chills, patient is breathing comfortably on room air, the patient denies chest pain shortness of breath and no significant cough, patient denies abdominal pain, no nausea vomiting or diarrhea. The patient right facial and abdominal wall pain discomfort and swelling has decreased No lab work drawn today Objective - Vital Signs Vital signs: Vital Signs Temp 98.1 F 08/05/23 11:35 Pulse 75 08/05/23 11:35 Resp 18 08/05/23 11:35 BP 130/72 08/05/23 11:35 Pulse Ox 96 08/05/23 11:35 FiO2 Intake & Output 08/04/23 08/05/23 08/05/23 18:59 06:59 18:59 Other: Voiding Method Toilet # Voids 2 - Exam GENERAL DESCRIPTION: Middle-age male lying in bed in no distress SKIN: Right cheek and abdominal wall swelling redness slightly decreased RESPIRATORY SYSTEM: Unlabored breathing , decreased breath sounds at bases HEART: S1 S2 regular rate and rhythm , ABDOMEN: Soft , no tenderness EXTREMITIES: No edema feet - Labs CBC & Chem 7: 08/04/23 06:14 08/06/23 05:43 Labs: Microbiology - Last 24 Hours (Table) 08/03/23 18:30 Blood Culture - Preliminary Blood 08/03/23 18:15 Blood Culture - Preliminary Blood Assessment and Plan (1) Facial abscess Current Visit: Yes Status: Acute Code(s): L02.01 - CUTANEOUS ABSCESS OF FACE SNOMED Code(s): 709052778 (2) Abdominal wall cellulitis Current Visit: Yes Status: Acute Code(s): L03.311 - CELLULITIS OF ABDOMINAL WALL SNOMED Code(s): 95315173 Plan: 1patient presented to hospital with a painful lump to the right cheek and right lower abdominal area that started as a pimple more likely related to staphylococcal infection with folliculitis progressing into abscess 2-patient did have spontaneous drainage and cultures are currently pending 3-patient to continue with vancomycin pharmacy to dose target trough of 15 while watching kidney function and Vanco trough closely Dictation was produced using [employer] dictation software. please excuse any gramma tical, word or spelling errors.
--- NOTE | 2023-08-06 18:54 | P.PN ---
Subjective Progress Note Date: 08/06/23 Principal diagnosis: Reason for follow-up is right facial and abdominal wall abscess cellulitis Patient is a 53-year-old male with a past medical history significant for recent sigmoid resection with end colostomy for diverticulitis with abscess on June 13, 2023, patient now presenting to [facility] ER concerning for a painful lump to the right cheek and right lower abdominal area patient has been diagnosed with a right cheek and abdominal wall cellulitis. On today's evaluation that is 08/06/2023,the patient remains to be afebrile, patient is on room air not requiring supplemental oxygen and denies any shortness of breath no chest pain or cough.Patient denies having any nausea or vomiting, no abdominal pain and no diarrhea , the patient right cheek and abdominal wall swelling redness has improved no drainage. Patient did have a creatinine 0.77 culture growing presumptive MRSA Objective - Vital Signs Vital signs: Vital Signs Temp 97.7 F 08/06/23 11:21 Pulse 72 08/06/23 11:21 Resp 18 08/06/23 11:21 BP 124/75 08/06/23 11:21 Pulse Ox 94 L 08/06/23 11:21 FiO2 Intake & Output 08/05/23 08/06/23 08/06/23 18:59 06:59 18:59 Intake Total 500 Balance 500 Intake: Intake, IV Titration 500 Amount Vancomycin 2,000 mg In 500 Sodium Chloride 0.9% 500 ml 500 ml @ 167 mls/hr IVPB Q12H [facility] Rx#: [id number] Other: Voiding Method Toilet # Voids 3 - Exam GENERAL DESCRIPTION: Middle-age male lying in bed in no distress SKIN: Right cheek and abdominal wall swelling redness slightly decreased RESPIRATORY SYSTEM: Unlabored breathing , decreased breath sounds at bases HEART: S1 S2 regular rate and rhythm , ABDOMEN: Soft , no tenderness EXTREMITIES: No edema feet - Labs CBC & Chem 7: 08/04/23 06:14 08/06/23 05:43 Labs: Microbiology - Last 24 Hours (Table) 08/03/23 18:30 Blood Culture - Preliminary Blood 08/03/23 18:15 Blood Culture - Preliminary Blood 08/04/23 15:47 Wound Culture - Preliminary Face Presumptive MRSA Assessment and Plan (1) Abdominal wall cellulitis Current Visit: Yes Status: Acute Code(s): L03.311 - CELLULITIS OF ABDOMINAL WALL SNOMED Code(s): 10713045 (2) Facial abscess Current Visit: Yes Status: Acute Code(s): L02.01 - CUTANEOUS ABSCESS OF FACE SNOMED Code(s): 235757468 (3) Facial cellulitis Current Visit: Yes Status: Acute Code(s): L03.211 - CELLULITIS OF FACE SNOMED Code(s): 526713419 Plan: 1patient presented to hospital with a painful lump to the right cheek and right lower abdominal area that started as a pimple more likely related to staphylococcal infection with folliculitis progressing into abscess 2-patient did have spontaneous drainage and cultures are currently growing presumptive MRSA 3-patient to continue with vancomycin pharmacy to dose target trough of 15 while waiting for the culture to finalize to determine discharge antibiotics Dictation was produced using [employer] dictation software. please excuse any grammatical, word or spelling errors. Time with Patient: Less than 30
[2023-08-07] MEDS: VANCOMYCIN TROUGH DUE 1 EACH MISC MISCELLANE ONE (06:30)
[2023-08-07 07:01] LABS: African American GFR (CKD) >90 (>60 ml/min/1.73 sqM); Non-African American GFR(CKD) >90 (>60 ml/min/1.73 sqM)
[2023-08-07 07:32] VITALS: RESP 18
[2023-08-07 12:06] VITALS: BP 126/82; PULSE 87; TEMP 97.5
--- NOTE | 2023-08-07 15:53 | P.PN ---
Subjective Progress Note Date: 08/07/23 CHIEF COMPLAINT: Abscess of face and abdomen HISTORY OF PRESENT ILLNESS: Patient's abscesses are improving. No longer having any drainage. Area of erythema decreased. Cultures did grow MRSA. He is sche duled for discharge today. PHYSICAL EXAM: VITAL SIGNS: Reviewed. Face right cheek abscess. No cellulitis. No drainage. Area is smaller. ABDOMEN: Cellulitis right lower abdomen currently no drainage. Small area of induration decreased erythema. ASSESSMENT: 1. Abscess of the face 2. Abscess of the abdominal wall PLAN: -No surgical intervention planned -Antibiotics per infectious disease -Okay for discharge from surgical standpoint Physician Evp Managing Director note has been reviewed by physician. Signing provider agrees with the documented findings, assessment, and plan of care. Objective - Vital Signs Vital signs: Vital Signs Temp 97.5 F L 08/07/23 11:11 Pulse 87 08/07/23 11:11 Resp 18 08/07/23 11:11 BP 126/82 08/07/23 11:11 Pulse Ox 97 08/07/23 11:11 FiO2 Intake & Output 08/06/23 08/07/23 08/07/23 18:59 06:59 18:59 Intake Total 590 Balance 590 Intake: Oral 590 Other: Voiding Method Toilet # Voids 1 2 - Labs CBC & Chem 7: 08/04/23 06:14 08/07/23 05:57 Labs: Microbiology - Last 24 Hours (Table) 08/03/23 18:30 Blood Culture - Preliminary Blood 08/03/23 18:15 Blood Culture - Preliminary Blood 08/04/23 15:47 Anaerobic Culture - Preliminary Abdomen 08/04/23 15:47 Gram Stain - Final Face Wound Culture - Final Methicillin resist S. aureus
[2023-08-07] MEDS ORDERED: VANCOMYCIN 1,500 MG in SODIUM CHLORIDE 0.9% 500 ML 500 ML IVPB SCH (16:00)
[2023-08-09] MEDS ORDERED: VANCOMYCIN TROUGH DUE 1 EACH MISC MISCELLANE ONE (07:00)
--- NOTE | 2023-08-09 08:55 | P.DS ---
Providers Date of admission: 08/03/23 19:28 Attending physician: Gerald Alexander Consults: 08/03/23 19:22 Consult Physician Routine Consulting Provider: Odilon Ziegler Consult Reason/Comments: known Do you want consulting provider notified?: Yes 08/04/23 13:36 Consult Physician Routine Consulting Provider: Geovanni Su Consult Reason/Comments: cellulitis/abscess face and abdominal wall Do you want consulting provider notified?: Yes Primary care physician: Gerald Alexander Hospital Course: Final Diagnosis Cellulitis of the right face and right lower abdomen with abscess to both patient does have a history of MRSA. Cultures show MRSA History of hypertension pressure is on the lower end systolic patient will continue lisinopril and dose was decreased to 5 mg daily. history of diverticulitis/abdominal abscess requiring sigmoid colon resection and end colostomy back in June 2023. Obesity Discharge Disposition Patient stable for discharge home. He will continue antibiotic therapy with a 10-day course of oral doxycycline on discharge secondary to the MRSA positive culture of the face and abdomen abscess. Patient's blood pressure has been low normal and lisinopril was decreased to 5 mg daily on discharge. Patient to follow-up with surgery as previously recommended continue workup for colostomy reversal. Was given prescription for repeat BMP and CBC in 3 days to have blood work redrawn. Patient to follow-up with his PCP Dr. Dimitrios Alexander on discharge in 1 to 2 days. Hospital Course This is a pleasant 53-year-old male who follows with Dr. Alexander patient was brought into the hospital on second in the evening secondary to 3 days of pain and redness from his right side of his face as well as his right lower abdomen. Patient appears to have an area of induration on his right lower abdomen with a cellulitic changes to the surrounding skin. This was draining and was cultured additionally the face has an area of induration and cellulitic changes surrounding what appears to be the abscess as well. Infectious disease and general surgery are following. Patient has been started empirically on IV vancomycin as he does have a history of MRSA in the past. Patient was recently mid to the hospital back in June of this year and underwent a sigmoid colon resection with end colostomy secondary to diverticulitis and abscess and the surgical incision appears to be well-healed with no areas of redness or drainage. Patient is making stool from the ostomy. He has not been having fevers or chills he denies any shortness of breath no dizziness or lightheadedness. He is alert x 3. He is evaluated today on the medical floor resting in bed. He reports no acute pain. He has not had any elevated white blood cell count, his renal function remains stable with a BUN of 9 and a creatinine of 0.66. Patient is been afebrile. He will remain inpatient IV antibiotics pending wound cultures. Final wound culture does reveal MRSA this was discussed with the patient. He did not receive I&D of the abscess on either the face or the abdomen as the areas of cellulitis and induration have improved. He is recommending a 10-day course of oral doxycycline which has been ordered by ID and patient will follow-up with Dr. Su in the office in 1 week on discharge. Please see medication reconciliation for a list of current medications. Thank you for allowing us to participate in the care of this patient. The impression and plan of care has been dictated by Cherry Henley, Nurse Practitioner as directed. Dr. Yasir MD I have performed a history and physical examination and medical decision making of this patient, discussed the same with the dictator, and agree with the dictators assessment and plan as written, documented as a scribe. Based on total visit time, I have performed more than 50% of this visit. Patient Condition at Discharge: Stable Plan - Discharge Summary Discharge Rx Participant: No New Discharge Prescriptions: New Doxycycline Hyclate 100 mg PO BID #20 capsule Pantoprazole [Protonix] 40 mg PO AC-BRKFST #30 tab Continue lisinopriL [Zestril] 10 mg PO DAILY Ferrous Sulfate [Iron (65 MG Elemental)] 325 mg PO DAILY Citalopram Hydrobromide [Citalopram HBr] 20 mg PO DAILY Discontinued LORazepam [Ativan] 0.5 - 1.5 mg PO TID PRN PRN Reason: Anxiety Discharge Medication List Citalopram Hydrobromide [Citalopram HBr] 20 mg PO DAILY 06/13/23 [History] lisinopriL [Zestril] 10 mg PO DAILY 06/13/23 [History] Ferrous Sulfate [Iron (65 MG Elemental)] 325 mg PO DAILY 08/03/23 [History] Doxycycline Hyclate 100 mg PO BID #20 capsule 08/07/23 [Rx] Pantoprazole [Protonix] 40 mg PO AC-BRKFST #30 tab 08/07/23 [Rx] Follow up Appointment(s)/Referral(s): Gerald Alexander MD [Primary Care Provider] - 08/10/23 2:30 pm [facility], [NON-STAFF] - 1 Week Geovanni Su MD [STAFF PHYSICIAN] - 1 Week (The office was not available to take calls-We left a message with your information and they should be calling you with an appointment date and time. If you do not hear from them today then call them tomorrow.) Ambulatory/Diagnostic Orders: Basic Metabolic Panel [LAB.AMB] Time Frame: 3 Days, Location: None Selected Complete Blood Count w/diff [LAB.AMB] Location: None Selected Patient Instructions/Handouts: Doxycycline (By mouth), Pantoprazole (By mouth), MRSA (Methicillin-Resistant Staphylococcus Aureus) (DC), Cellulitis (GEN), Abscess (GEN) Activity/Diet/Wound Care/Special Instructions: See prescriptions to have blood work drawn in 3 days Discharge Disposition: HOME WITH HOME HEALTH SERVICES
== END 2023-08-07 12:36 | disposition home health service (06) ==
LOC: EC 17:11 → 5NMEDONC 19:28
PROVIDERS: ADMIT Family Medicine; ATTEND Family Medicine
DX: L02.01 Cutaneous abscess of face (principal); L02.211 Cutaneous abscess of abdominal wall; L03.211 Cellulitis of face; L03.311 Cellulitis of abdominal wall; I10 Essential (primary) hypertension; E66.9 Obesity, unspecified; Z68.39 Body mass index [BMI] 39.0-39.9, adult; Z86.14 Personal history of Methicillin resistant Staphylococcus aureus infection; Z93.3 Colostomy status; Z79.899 Other long term (current) drug therapy
CPT/HCPCS: 96361; 96366 ×5; 96372 ×3; 96365; 96367; 96375; 99285; 36415; 94760; 93005; 80053 ×2; 80048; 82565; 83605; 83735; 84100; 85025 ×2; 80202 ×2; 85610; 85730; 87040; 87070; 87205; 87075; 87077; 87186; 71046; G0378 ×5; J3370 ×5; J2270; J1644 ×3; J2405; J0696 ×2

== ENCOUNTER → 2023-09-18 | Outpatient (CLI) | payer BC ==
[2023-09-18 14:43] LABS: Basophils # (A) 0.07 X 10*3/uL (0.00-0.10); Basophils % (A) 1.6 %; Eosinophils # (A) 0.13 X 10*3/uL (0.04-0.35); Eosinophils % (A) 3.1 %; HCT 43.4 % (39.6-50.0); HGB 12.4 g/dL (13.0-17.0); Lymphocytes # (A) 1.47 X 10*3/uL (0.90-5.00); Lymphocytes % (A) 34.5 %; MCH 21.6 pg (27.0-32.0); MCHC 28.6 g/dL (32.0-37.0); MCV 75.6 FL (80.0-97.0); Mean Platelet Volume 10.2 FL (9.5-12.2); Monocytes # (A) 0.36 X 10*3/uL (0.20-1.00); Monocytes % (A) 8.5 %; NRBC Per 100 WBC 0 X 10*3/uL (0.00-0.01); Neutrophils # (A) 2.22 X 10*3/uL (1.80-7.70); Neutrophils % (A) 52.1 %; Platelet Count 344 X 10*3/uL (140-440); RBC 5.74 X 10*6/uL (4.40-5.60); RDW 18.9 % (11.5-14.5); WBC 4.26 X 10*3/uL (4.50-10.00)
[2023-09-18 14:49] LABS: Anion Gap 13.8 mmol/L (4.00-12.00); Carbon Dioxide 25.2 mmol/L (21.6-31.8)
== END | disposition home or self-care (01) ==
LOC: LABPAT 11:07
PROVIDERS: ATTEND Surgery
DX: Z01.818 Encounter for other preprocedural examination (principal); K57.32 Diverticulitis of large intestine without perforation or abscess without bleeding
CPT/HCPCS: 36415; 80051; 85025; 86850; 86900; 86901; 93005

== ENCOUNTER 2023-09-26 09:13 | Inpatient (IN) | payer BC ==
[~2023-09-26 09:13] MED LIST: HYDROmorphone 0.5 MG/0.5 ML SYRINGE IVP PRN; LIDOCAINE 1% (10MG/ML) FOR IV START INTRADERMA PRN; MIDAZOLAM 2 MG/2 ML VIAL IV PRN; fentaNYL (PF) 50 MCG/ML 2 ML AMP IVP PRN
[2023-09-26] MEDS: IV FLUID CONTINUATION 1,000 ML IV ONE (09:31)
[2023-09-26] MEDS: ACETAMINOPHEN TAB 500 MG TAB PO PRN (10:02)
[2023-09-26] MEDS: DEXAMETHASONE SOD PHOSPHATE 4 MG/ML 1 ML VIAL IV ONE (10:02)
[2023-09-26] MEDS: ONDANSETRON 4 MG/2 ML VIAL IVP ONE (10:02)
[2023-09-26] MEDS: LACTATED RINGERS 1,000 ML IV SCH (10:03)
[2023-09-26] MEDS: HEPARIN SODIUM,PORCINE 5,000 UNIT/ML 1 ML VIAL SQ PRN (10:03)
[2023-09-26] MEDS: MIDAZOLAM 2 MG/2 ML VIAL IVP ONE (10:12)
[2023-09-26] MEDS: fentaNYL (PF) 50 MCG/ML 2 ML AMP IVP ONE (10:20)
--- NOTE | 2023-09-26 10:39 | P.ANPRN ---
Procedure Note - Anesthesia - Epidural/Spinal Epidural Continuous Time Out Performed: Yes Date of Procedure: 09/26/23 Procedure Start Time: 10:11 Procedure Stop Time: 10:34 Location of Patient: PreOp Indication: Acute Post-Operative Pain, Requested by Surgeon Sedation Type: Sedate with meaningful contact maintained Preparation: Sterile Dressing Position: Sitting Catheter: Indwelling Needle Guage: 18 Blood Aspirated: No Pain Paresthesia on Injection Noted: No Events: Uneventful and Well Tolerated (xylo 1.5 plus epi 3cc no adverse reaxtion)
[2023-09-26] MEDS ORDERED: NEOSTIGMINE 1 MG/ML 10 ML VIAL ONE (10:40)
[2023-09-26] MEDS ORDERED: LIDOCAINE 1% INJ 10MG/ML (20 ML MDV) ONE (10:40)
[2023-09-26] MEDS ORDERED: ePHEDrine 50 MG/ML 1 ML VIAL ONE (10:40)
[2023-09-26] MEDS ORDERED: SUCCINYLCHOLINE CHLORIDE 200 MG/10 ML VIAL IV ONE (10:40)
[2023-09-26] MEDS ORDERED: ROCURONIUM 10 MG/ML (5 ML VIAL) IV ONE (10:40)
[2023-09-26] MEDS ORDERED: PHENYLEPHRINE 10 MG/ML VIAL ONE (10:40)
[2023-09-26] MEDS ORDERED: ALBUMIN HUMAN 5% (12.5gm) 250 ML BOTTLE IVPB ONE (10:40)
[2023-09-26] MEDS ORDERED: GLYCOPYRROLATE 0.2 MG/ML 2 ML VIAL ONE (10:40)
[2023-09-26] MEDS ORDERED: PROPOFOL 10 MG/ML 20 ML VIAL IV ONE (10:40)
[2023-09-26] MEDS ORDERED: HEPARIN SODIUM,PORCINE 5,000 UNIT/ML 1 ML VIAL ONE (10:40)
[2023-09-26] MEDS ORDERED: NALOXONE 0.4 MG/ML 1 ML VIAL IV PRN (10:43)
[2023-09-26] MEDS: metroNIDAZOLE-NS PMX 500 MG in SALINE 1 100ML.BAG IVPB PRN (11:10)
[2023-09-26] MEDS ORDERED: BENZOCAINE/MENTHOL LOZENG 1 EACH LOZENGE MUCOUS MEM PRN (12:26)
[2023-09-26] MEDS: LACTATED RINGERS 1,000 ML IV ONE (12:28)
[2023-09-26] MEDS: ROPIVACAINE 250 MG, HYDROMORPHONE (PF) 5 MG in SODIUM CHLORIDE 0.9% 200 ML EPIDURAL PRN (12:54)
[2023-09-26] MEDS: ALBUMIN HUMAN 5% 250 ML in EMPTY BAG 1 BAG IVPB ONE (13:10)
[2023-09-26] MEDS: D5-0.45% NACL WITH KCL 20MEQ/L 1,000 ML IV SCH (15:59)
[2023-09-26 16:07] LABS: Anisocytosis Slight; Basophils % (A) 0 %; Eosinophils # (A) 0.1 k/uL (0-0.7); Eosinophils % (A) 1 %; HCT 37.2 % (39.0-53.0); HGB 11.9 gm/dL (13.0-17.5); Hypochromasia Marked; Lymphocytes # (A) 0.5 k/uL (1.0-4.8); Lymphocytes % (A) 4 %; MCH 24.3 pg (25.0-35.0); MCV 76.1 fL (80.0-100.0); Mean Platelet Volume 7.1; Microcytosis Slight; Monocytes # (A) 0.9 k/uL (0-1.0); Monocytes % (A) 8 %; Neutrophils # (A) 10.2 k/uL (1.3-7.7); Neutrophils % (A) 86 %; Platelet Count 254 k/uL (150-450); RBC 4.88 m/uL (4.30-5.90); WBC 11.8 k/uL (3.8-10.6)
[2023-09-26] MEDS: ALVIMOPAN 12 MG CAPSULE PO SCH (20:08)
--- NOTE | 2023-09-27 06:59 | P.PN ---
Progress Note - Text Progress Note Date: 09/27/23 Postoperative day #1 status post ostomy reversal ,epidural catheter placed for postoperative analgesia, patient doing well epidural site okay, patient currently on combination of epidural infusion solution of Ropivacaine 0.0625% and Dilaudid 20 g per mL the infusion rate at 7 ml per hour , patient had no motor deficit epidural site okay , vital signs stable ,VAS 1/10 , Assessment and plan= post operative day # 1 patient doing well ,pain well controlled , there is no anesthesia related complications
--- NOTE | 2023-09-27 09:01 | P.CONS ---
History of Present Illness - Reason for Consult Consult date: 09/27/23 Medical management Requesting physician: Odilon Ziegler - Chief Complaint Colostomy revision - History of Present Illness This is a 53-year-old white male who is essentially admitted for colostomy reversal. The patient has been doing quite well. Work has been stressful due to insurance issues related to his health. He is seen postoperative day 1 doing well. Minimal complaints pain is tolerable. No flatus. Underlying history of well-controlled hypertension. Review of Systems Constitutional: Denies chills, Denies fever Eyes: denies blurred vision, denies pain Ears, nose, mouth and throat: Denies headache, Denies sore throat Cardiovascular: Denies chest pain, Denies shortness of breath Respiratory: Denies cough Gastrointestinal: Reports as per HPI, Reports bloating Musculoskeletal: Denies myalgias Past Medical History Past Medical History: Hypertension Additional Past Medical History / Comment(s): Diverticulitis. Has colostomy. History of Any Multi-Drug Resistant Organisms: MRSA Year Discovered:: 06/14/18 MDRO Source:: AXILLA Past Surgical History: Bowel Resection, Joint Replacement Additional Past Surgical History / Comment(s): Right knee, cysts on buttock I&D, C5-7 surgery with cage Nov 2021, colostomy. Past Anesthesia/Blood Transfusion Reactions: Previous Problems w/ Anesthesia Additional Past Anesthesia/Blood Transfusion Reaction / Comm: Pressure drops and hard to wake up. Past Psychological History: No Psychological Hx Reported Smoking Status: Never smoker Past Alcohol Use History: None Reported Past Drug Use History: None Reported - Past Family History Brother(s) Family Medical History: Diabetes Mellitus Mother Family Medical History: Diabetes Mellitus Father Family Medical History: Myocardial Infarction ([place]) Additional Family Medical History / Comment(s): [place] at 51 and one at 66 when he passed. Medications and Allergies Home Medications Medication Instructions Recorded Confirmed Type lisinopriL [Zestril] 10 mg PO DAILY 06/13/23 09/25/23 History Ferrous Sulfate [Iron (65 MG 325 mg PO DAILY 08/03/23 09/25/23 History Elemental)] Citalopram Hydrobromide [CeleXA] 20 mg PO DAILY 09/20/23 09/25/23 History Allergies Allergy/AdvReac Type Severity Reaction Status Date / Time No Known Allergies Allergy Verified 09/26/23 09:39 Physical Exam Vitals: Vital Signs Temp Pulse Pulse Resp BP Pulse Ox 09/27/23 07:15 98.3 F 90 17 120/79 95 09/27/23 03:22 109/74 09/27/23 00:25 98.5 F 93 20 90/56 96 09/26/23 19:14 98.5 F 94 16 98/64 93 L 09/26/23 16:19 97 09/26/23 14:57 97.9 F 90 20 96/62 97 09/26/23 14:38 81 16 103/59 100 09/26/23 14:30 83 16 102/51 100 09/26/23 14:00 85 16 101/53 100 09/26/23 13:45 87 16 102/59 100 09/26/23 13:30 84 16 102/57 100 09/26/23 13:15 90 16 101/58 100 09/26/23 13:00 82 16 111/59 100 09/26/23 12:43 89 16 126/55 100 09/26/23 12:41 96 16 60/41 98 09/26/23 10:40 57 L 16 168/63 98 09/26/23 09:41 97.7 F 81 16 136/76 97 Intake and Output 09/26/23 09/27/23 09/27/23 22:59 06:59 14:59 Output Total 250 Balance -250 Output: Urine 250 Uretheral (Poe) 250 Other: Voiding Method Indwelling Catheter Weight 113 kg - Constitutional General appearance: obese - EENT Eyes: EOMI - Neck Neck: no lymphadenopathy - Respiratory Respiratory: bilateral: diminished - Cardiovascular Rhythm: regular Heart sounds: normal: S1, S2 Abnormal Heart Sounds: no S3 Gallop - Gastrointestinal General gastrointestinal: soft, no tenderness - Psychiatric Psychiatric: A&O x's 3 Results CBC & Chem 7: 09/26/23 15:20 Labs: Abnormal Lab Results - Last 24 Hours (Table) 09/26/23 Range/Units 15:20 WBC 11.8 H (3.8-10.6) k/uL Hgb 11.9 L (13.0-17.5) gm/dL Hct 37.2 L (39.0-53.0) % MCV 76.1 L (80.0-100.0) fL MCH 24.3 L (25.0-35.0) pg RDW 17.0 H (11.5-15.5) % Neutrophils # 10.2 H (1.3-7.7) k/uL Lymphocytes # 0.5 L (1.0-4.8) k/uL Assessment and Plan (1) History of colostomy reversal Current Visit: Yes Status: Acute Code(s): Z98.890 - OTHER SPECIFIED POSTPROCEDURAL STATES SNOMED Code(s): 09330355228631182 (2) Hypertension Current Visit: No Status: Acute Code(s): I10 - ESSENTIAL (PRIMARY) HYPERTENSION SNOMED Code(s): 02624299 (3) Moderate major depression Current Visit: Yes Status: Acute Code(s): F32.1 - MAJOR DEPRESSIVE DISORDER, SINGLE EPISODE, MODERATE SNOMED Code(s): 648543 Plan: Restart home medications. The patient understands the appropriate postop protocol. Pulmonary toilet. Pain control per surgery. Will continue to follow. Check CBC and CMP in a.m.
[2023-09-27] MEDS: ONDANSETRON 4 MG/2 ML VIAL IVP PRN (12:42)
--- NOTE | 2023-09-27 13:13 | P.PN ---
Subjective Progress Note Date: 09/27/23 CHIEF COMPLAINT: Diverticulitis HISTORY OF PRESENT ILLNESS: Postop day #1 status post colostomy reversal. Patient reports pain is controlled. Has epidural in place. He did complain of some acid reflux. Denies any nausea or vomiting. Afebrile. WBC 11.8 Hgb 11.9 PHYSICAL EXAM: VITAL SIGNS: Reviewed. GENERAL: Well-developed in no acute distress. ABDOMEN: Soft. Nondistended. Prevana wound vac in place NEUROLOGIC: Alert and oriented. Cranial nerves II through XII grossly intact. ASSESSMENT: 1. Diverticulitis status post colostomy reversal PLAN: -Continue clear liquid diet -Continue pain management -Encourage patient to ambulate -Encourage patient to use incentive spirometer -Continue IV fluids -GI prophylaxis IV Protonix added and DVT prophylaxis Physician Digital Associate Media Director note has been reviewed by physician. Signing provider agrees with the documented findings, assessment, and plan of care. Objective - Vital Signs Vital signs: Vital Signs Temp 98.3 F 09/27/23 07:15 Pulse 90 09/27/23 07:15 Resp 17 09/27/23 07:15 BP 120/79 09/27/23 07:15 Pulse Ox 95 09/27/23 07:15 FiO2 Intake & Output 09/26/23 09/27/23 09/27/23 18:59 06:59 18:59 Intake Total 1623 Output Total 300 250 Balance 1323 -250 Weight 113 kg Intake: IV 1623 Output: Urine 280 250 Uretheral (Poe) 250 Estimated Blood Loss 20 Other: Voiding Method Indwelling Catheter Indwelling Catheter - Labs CBC & Chem 7: 09/26/23 15:20 Labs: Abnormal Lab Results - Last 24 Hours (Table) 09/26/23 Range/Units 15:20 WBC 11.8 H (3.8-10.6) k/uL Hgb 11.9 L (13.0-17.5) gm/dL Hct 37.2 L (39.0-53.0) % MCV 76.1 L (80.0-100.0) fL MCH 24.3 L (25.0-35.0) pg RDW 17.0 H (11.5-15.5) % Neutrophils # 10.2 H (1.3-7.7) k/uL Lymphocytes # 0.5 L (1.0-4.8) k/uL
[2023-09-27] MEDS: PANTOPRAZOLE 40 MG/10 ML VIAL IVP SCH (14:47)
[2023-09-27] MEDS: HEPARIN SODIUM,PORCINE 5,000 UNIT/ML 1 ML VIAL SQ SCH (19:58)
[2023-09-27 20:52] LABS: ALT 15 U/L (4-49); AST 24 U/L (17-59); African American GFR (CKD) >90 (>60 ml/min/1.73 sqM); Albumin 4.2 g/dL (3.5-5.0); Albumin/Globulin Ratio 1.6; Alkaline Phosphatase 48 U/L (38-126); Anion Gap 10 mmol/L; Blood Urea Nitrogen 13 mg/dL (9-20); Calcium 8.7 mg/dL (8.4-10.2); Carbon Dioxide 19 mmol/L (22-30); Chloride 99 mmol/L (98-107); Globulin 2.6 g/dL; Glucose 155 mg/dL (74-99); Non-African American GFR(CKD) >90 (>60 ml/min/1.73 sqM); Potassium 4.7 mmol/L (3.5-5.1); Sodium 128 mmol/L (137-145); Total Bilirubin 1.3 mg/dL (0.2-1.3); Total Protein 6.8 g/dL (6.3-8.2)
--- NOTE | 2023-09-27 20:58 | CT ---
EXAMINATION TYPE: CT chest angio for PE DATE OF EXAM: 09/27/2023 COMPARISON: None HISTORY: Sudden SOB, increased oxygen need CT DLP: 1160.4 mGycm Automated exposure control for dose reduction was used. CONTRAST: CT Chest for pulmonary embolism performed with with IV Contrast, patient injected with 100 ml mL of I sovue 370. FINDINGS: There are multiple filling defects in the distal right and left pulmonary arteries and proximal segme ntal branches consistent with bilateral pulmonary emboli. There is no definite evidence of right hear t strain. There is mild by basilar atelectasis. There is a calcified nodule or calcified pleural-based plaque i n the right lower lobe posteriorly.. Evaluation is somewhat limited by involuntary motion. There is no mediastinal, hilar or axillary adenopathy. Limited scanning through the upper abdomen reveals no gross abnormality. IMPRESSION: Bilateral upper and lower lobe pulmonary emboli as described above.
[2023-09-27 21:22] LABS: Anisocytosis Slight; Basophils % (A) 0 %; Eosinophils % (A) 0 %; HGB 11.2 gm/dL (13.0-17.5); Hypochromasia Marked; Lymphocytes # (A) 0.6 k/uL (1.0-4.8); Lymphocytes % (A) 5 %; MCH 22.9 pg (25.0-35.0); MCHC 30.1 g/dL (31.0-37.0); MCV 75.8 fL (80.0-100.0); Mean Platelet Volume 7.7; Microcytosis Slight; Monocytes # (A) 0.9 k/uL (0-1.0); Monocytes % (A) 8 %; Neutrophils # (A) 10.1 k/uL (1.3-7.7); Neutrophils % (A) 86 %; Platelet Count 209 k/uL (150-450); RBC 4.89 m/uL (4.30-5.90); RDW 16.6 % (11.5-15.5); WBC 11.7 k/uL (3.8-10.6)
[2023-09-27] MEDS: HEPARIN SOD,PORK IN 0.45% NACL 25,000 UNIT in 0.45% NACL 1 250ML.BAG IV SCH (23:52)
[2023-09-27 23:55] LABS: Partial Thromboplastin Time 25.8 sec (22.0-30.0); Prothrombin Time 11.4 sec (10.0-12.5)
--- NOTE | 2023-09-28 00:18 | US ---
EXAMINATION TYPE: US venous doppler duplex LE DATE OF EXAM: 09/27/2023 11:14 PM COMPARISON: NONE CLINICAL INDICATION: Male, 53 years old with history of rule out DVT; Patient has PE, rule out DVT SIDE PERFORMED: Bilateral TECHNIQUE: The lower extremity deep venous system is examined utilizing real time linear array sonog toña with graded compression, doppler sonography and color-flow sonography. VESSELS IMAGED: Common Femoral Vein Deep Femoral Vein Greater Saphenous Vein * Femoral Vein Popliteal Vein Small Saphenous Vein * Proximal Calf Veins (* superficial vessels) Right Leg: Appears negative for DVT today Left Leg: Appears negative for DVT today Grayscale, color doppler, spectral doppler imaging performed of the deep veins of the bilateral lower extremities. There is normal flow, compressibility, vascular waveforms. IMPRESSION: No Ultrasound evidence for acute DVT in either lower extremity.
[2023-09-28] MEDS: HYDROmorphone 1 MG/ML 1 ML SYRINGE IVP PRN (00:49)
[2023-09-28 01:11] LABS: Anisocytosis Slight; Basophils % (A) 0 %; Eosinophils % (A) 0 %; HCT 39.4 % (39.0-53.0); HGB 11.8 gm/dL (13.0-17.5); Hypochromasia Marked; Lymphocytes # (A) 0.9 k/uL (1.0-4.8); Lymphocytes % (A) 8 %; MCV 76.4 fL (80.0-100.0); Mean Platelet Volume 7.6; Microcytosis Slight; Monocytes % (A) 9 %; Neutrophils # (A) 8.9 k/uL (1.3-7.7); Neutrophils % (A) 81 %; Platelet Count 176 k/uL (150-450); RBC 5.15 m/uL (4.30-5.90); RDW 16.6 % (11.5-15.5); WBC 10.9 k/uL (3.8-10.6)
--- NOTE | 2023-09-28 05:12 | P.CNPUL ---
History of Present Illness Consult date: 09/28/23 Requesting physician: Gerald Alexander Reason for consult: pulmonary embolism Chief complaint: Elective colostomy reversal History of present illness: Patient is a 53-year-old white male with past medical history significant for bowel obstruction and previous sigmoidectomy with end colostomy performed 06/13/2023. Pathology was benign for malignancy, consistent with diverticulitis and abscess. Also, had a recent hospitalization in Aug, 2023 for abdominal wall cellulitis. Patient was admitted 09/26/2023 for an elective colostomy reversal. No intraoperative complications reported. Postoperatively, patient was noted to be hypoxemic and tachycardic. A D-dimer was drawn and elevated at 17. A follow-up chest CTA demonstrated multiple filling defects in the distal right and left pulmonary arteries and proximal segmental branches consistent with bilateral pulmonary emboli. No definitive evidence of right-sided heart strain. Patient does have a epidural, and we did reach out to anesthesia services. I did speak to my supervising physician, who had already spoke to Dr. Mistry, and agreed with removal of epidural and starting the patient on systemic heparin. Overall, patient is hemodynamically stable. He continues on 4 L/min nasal cannula. SpO2 is 93%. Minimally dyspneic with conversation. Heart rate is 110 bpm. Blood pressure is normotensive. CBC: WBC count 10.9, hemoglobin 11.8, hematocrit 39.4, platelets 176. Baseline coagulation profile unremarkable, APTT 25.8. BMP: Sodium 128, potassium 4.7, chloride 99, serum bicarb 19, BUN 13, creatinine 0.83, glucose 155. Patient is currently lying flat in bed. He denies any significant complaints. Denies shortness of breath or chest pain. Denies any personal or familial history of thromboembolic disease. Denies unilateral lower extremity swelling. The nurses already removed his epidural catheter. No drainage or hematoma. Postsurgical abdominal incision dressed with wound VAC. Very minimal serosanguineous output in canister. Patient is going to be transferred to the selective care unit for closer monitoring. Review of Systems REVIEW OF SYSTEMS: CONSTITUTIONAL: Denies any recent significant weight loss or weight gain. EYES: Denies change in vision. EARS, NOSE, MOUTH, THROAT: Denies headaches, denies sore throat. CARDIOVASCULAR: Denies chest pain, palpitations or syncopal episodes. RESPIRATORY: Denies shortness of breath, cough, congestion or hemoptysis. GASTROINTESTINAL: Denies change in appetite, nausea and vomiting, or diarrhea. Admits postsurgical abdominal pain GENITOURINARY: Denies hematuria, denies infections. MUSKULOSKELETAL: Denies pain, denies swelling. INTEGUMENTARY: Denies rash, denies eczema. NEUROLOGICAL: Denies recent memory loss, no recent seizure activity. Denies lower extremity weakness or reduced sensation, lower back pain, bowel or bladder incontinence. PSYCHIATRIC: Denies anxiety, denies depression. HEMATOLOGIC/LYMPHATIC: Denies anemia, denies enlarged lymph node Past Medical History Past Medical History: Hypertension Additional Past Medical History / Comment(s): Diverticulitis. Has colostomy. History of Any Multi-Drug Resistant Organisms: MRSA Date of last positivie culture/infection: 06/14/18 MDRO Source:: AXILLA Past Surgical History: Bowel Resection, Joint Replacement Additional Past Surgical History / Comment(s): Right knee, cysts on buttock I&D, C5-7 surgery with cage Nov 2021, colostomy. Past Anesthesia/Blood Transfusion Reactions: Previous Problems w/ Anesthesia Additional Past Anesthesia/Blood Transfusion Reaction / Comment(s): Pressure drops and hard to wake up. Past Psychological History: No Psychological Hx Reported Smoking Status: Never smoker Past Alcohol Use History: None Reported Past Drug Use History: None Reported - Past Family History Brother(s) Family Medical History: Diabetes Mellitus Mother Family Medical History: Diabetes Mellitus Father Family Medical History: Myocardial Infarction ([place]) Additional Family Medical History / Comment(s): [place] at 51 and one at 66 when he passed. Medications and Allergies Home Medications Medication Instructions Recorded Confirmed Type lisinopriL [Zestril] 10 mg PO DAILY 06/13/23 09/25/23 History Ferrous Sulfate [Iron (65 MG 325 mg PO DAILY 08/03/23 09/25/23 History Elemental)] Citalopram Hydrobromide [CeleXA] 20 mg PO DAILY 09/20/23 09/25/23 History Allergies Allergy/AdvReac Type Severity Reaction Status Date / Time No Known Allergies Allergy Verified 09/26/23 09:39 Physical Exam Vitals: Vital Signs Temp Pulse Pulse Pulse Resp BP BP 09/27/23 23:43 98.3 F 113 H 18 115/78 09/27/23 21:24 123 H 101/65 09/27/23 19:49 107 H 09/27/23 19:29 98.2 F 107 H 18 119/74 09/27/23 19:25 09/27/23 14:07 98.3 F 91 16 109/71 09/27/23 07:15 98.3 F 90 17 120/79 Pulse Ox 09/27/23 23:43 09/27/23 21:24 93 L 09/27/23 19:49 09/27/23 19:29 91 L 09/27/23 19:25 79 L 09/27/23 14:07 90 L 09/27/23 07:15 95 Intake and Output 09/27/23 09/27/23 09/28/23 14:59 22:59 06:59 Intake Total 400 Output Total 850 Balance -450 Intake: Oral 400 Output: Urine 850 Other: Voiding Method Indwelling Catheter Indwelling Catheter GENERAL EXAM: Alert, 53-year-old obese male, lying supine, comfortable in no apparent distress. HEAD: Normocephalic and atraumatic EYES: Normal reaction of pupils, equal size. NOSE: Clear with pink turbinates. THROAT: No erythema or exudates. NECK: No masses, no JVD. CHEST: No chest wall deformity. LUNGS: Equal air entry with no crackles, wheeze, rhonchi or dullness. On 4 L/min nasal cannula. Some mild conversational dyspnea, speaks in short phrases. No accessory muscle use. CVS: S1 and S2 normal with no audible murmur, regular rhythm. No extra heart so unds. Tachycardic. ABDOMEN: Postsurgical incision is approximated with wound VAC in place, and a ve ry minimal amount of serosanguineous output in canister. No hepatosplenomegaly, active bowel sounds, no guarding or rigidity. SPINE: No scoliosis or deformity. No drainage or hematoma from epidural site. SKIN: No rashes CENTRAL NERVOUS SYSTEM: No focal deficits, tone is normal in all 4 extremities. Bilateral lower extremity strength 5/5, sensation intact. Patellar DTRs 2+ bilaterally. EXTREMITIES: There is no peripheral edema, clubbing, or cyanosis. Peripheral pulses are intact. Results - Laboratory Findings CBC and BMP: 09/27/23 23:19 09/27/23 20:25 PT/INR, D-dimer PT 11.4 sec (10.0-12.5) 09/27/23 23:19 INR 1.0 (<1.2) 09/27/23 23:19 D-Dimer 17.09 mg/L FEU (<0.60) H 09/27/23 20:25 Abnormal lab findings: Abnormal Labs 09/26/23 09/27/23 09/27/23 15:20 20:25 20:25 WBC 11.8 H 11.7 H Hgb 11.9 L 11.2 L Hct 37.2 L 37.0 L MCV 76.1 L 75.8 L MCH 24.3 L 22.9 L MCHC 30.1 L RDW 17.0 H 16.6 H Neutrophils # 10.2 H 10.1 H Lymphocytes # 0.5 L 0.6 L D-Dimer Sodium 128 L Carbon Dioxide 19 L Glucose 155 H Troponin I 09/27/23 09/27/23 09/27/23 20:25 20:25 23:19 WBC 10.9 H Hgb 11.8 L Hct MCV 76.4 L MCH 23.0 L MCHC 30.0 L RDW 16.6 H Neutrophils # 8.9 H Lymphocytes # 0.9 L D-Dimer 17.09 H Sodium Carbon Dioxide Glucose Troponin I 0.304 H* - Diagnostic Findings CT scan - chest: image reviewed Assessment and Plan Assessment: Bilateral segmental and subsegmental pulmonary emboli, no CT evidence of right- sided heart strain Acute hypoxemic respiratory failure, currently on 2 L/min nasal cannula, secon héctor to above Postoperative day #2 following colostomy reversal History of sigmoidectomy, secondary to diverticulitis with abscess, performed on 06/13/2023 History of abdominal wall cellulitis History of hypertension Morbid obesity, with a BMI of 41.5 kg/m Plan: Patient's medications, labs, imaging reviewed Continue supplemental oxygen to maintain oxygen saturation of 92% or greater No obvious CT evidence of right-sided heart strain. Hemodynamics are stable at this time. Echocardiogram pending for the morning Start high intensity heparin protocol We did collaborate with anesthesia and general surgery, and it is felt benefits outweigh the risk of systemic heparinization. Epidural catheter was removed, prior to initiation of systemic heparin Monitor for bleeding or spinal hematoma formation. Assess neurovascular status of lower extremities per protocol. Maintain bedrest. Will continue to follow I have personally seen and examined the patient, performed the documentation and the assessment and plan as written. Number of minutes spent on the visit:20 Time with Patient: Greater than 30
--- NOTE | 2023-09-28 08:43 | P.PN ---
Progress Note - Text Progress Note Date: 09/28/23 this is postoperative day #3 status post colostomy removal. The patient had an epidural catheter with very good control of his pain however he was found to have pulmonary embolism and decision was made to take the epidural catheter out last night before starting him on high-dose of heparin infusion. The patient is stable hemodynamically. There are no neurologic changes in the lower extremities. His pain will be managed by his surgical team. We will sign off however the patient will be monitored neurologically for any neurologic changes in the lower extremities by his primary care team.
[2023-09-28] MEDS ORDERED: PANTOPRAZOLE 40 MG/10 ML VIAL IVP SCH (09:00)
--- NOTE | 2023-09-28 09:00 | P.PN ---
Subjective Progress Note Date: 09/28/23 This is a 53-year-old male who was admitted for colostomy reversal. He is postop day #2. Patient was doing well however last night developed some hypoxia along with some shortness of breath and workup identified pulmonary embolisms. He remains on IV heparin. Echo has been ordered. Vitals are stable. Objective - Vital Signs Vital signs: Vital Signs Temp 99.0 F 09/28/23 08:29 Pulse 93 09/28/23 08:29 Resp 20 09/28/23 08:29 BP 126/84 09/28/23 08:29 Pulse Ox 97 09/28/23 08:29 FiO2 Intake & Output 09/27/23 09/28/23 09/28/23 18:59 06:59 18:59 Intake Total 400 540 790 Output Total 850 1575 Balance -450 -1035 790 Intake: Oral 400 540 790 Output: Urine 850 1575 Other: Voiding Method Indwelling Catheter Indwelling Catheter - Constitutional General appearance: Present: cooperative, no acute distress - EENT Eyes: Present: PERRLA - Neck Neck: Present: normal ROM. Absent: lymphadenopathy, rigidity - Respiratory Respiratory: bilateral: diminished - Cardiovascular Rhythm: regular Heart sounds: normal: S1, S2 - Gastrointestinal General gastrointestinal: Present: soft - Integumentary Integumentary: Present: normal, normal turgor - Psychiatric Psychiatric: Present: A&O x's 3, appropriate affect, intact judgment & insight - Labs CBC & Chem 7: 09/27/23 23:19 09/27/23 20:25 Labs: Abnormal Lab Results - Last 24 Hours (Table) 09/27/23 09/27/23 09/27/23 Range/Units 20:25 20:25 20:25 WBC 11.7 H (3.8-10.6) k/uL Hgb 11.2 L (13.0-17.5) gm/dL Hct 37.0 L (39.0-53.0) % MCV 75.8 L (80.0-100.0) fL MCH 22.9 L (25.0-35.0) pg MCHC 30.1 L (31.0-37.0) g/dL RDW 16.6 H (11.5-15.5) % Neutrophils # 10.1 H (1.3-7.7) k/uL Lymphocytes # 0.6 L (1.0-4.8) k/uL APTT (22.0-30.0) sec D-Dimer (<0.60) mg/L FEU Sodium 128 L (137-145) mmol/L Carbon Dioxide 19 L (22-30) mmol/L Glucose 155 H (74-99) mg/dL Troponin I 0.304 H* (0.000-0.034) ng/mL 09/27/23 09/27/23 09/28/23 Range/Units 20:25 23:19 05:36 WBC 10.9 H (3.8-10.6) k/uL Hgb 11.8 L (13.0-17.5) gm/dL Hct (39.0-53.0) % MCV 76.4 L (80.0-100.0) fL MCH 23.0 L (25.0-35.0) pg MCHC 30.0 L (31.0-37.0) g/dL RDW 16.6 H (11.5-15.5) % Neutrophils # 8.9 H (1.3-7.7) k/uL Lymphocytes # 0.9 L (1.0-4.8) k/uL APTT 66.6 H (22.0-30.0) sec D-Dimer 17.09 H (<0.60) mg/L FEU Sodium (137-145) mmol/L Carbon Dioxide (22-30) mmol/L Glucose (74-99) mg/dL Troponin I (0.000-0.034) ng/mL Assessment and Plan (1) History of colostomy reversal Current Visit: Yes Status: Acute Code(s): Z98.890 - OTHER SPECIFIED POSTPROCEDURAL STATES SNOMED Code(s): 33386472277255991 (2) Pulmonary embolism Current Visit: Yes Status: Acute Code(s): I26.99 - OTHER PULMONARY EMBOLISM WITHOUT ACUTE COR PULMONALE SNOMED Code(s): 48347881 (3) Moderate major depression Current Visit: Yes Status: Acute Code(s): F32.1 - MAJOR DEPRESSIVE DISORDER, SINGLE EPISODE, MODERATE SNOMED Code(s): 401959 (4) Hypertension Current Visit: No Status: Acute Code(s): I10 - ESSENTIAL (PRIMARY) HYPERTENSION SNOMED Code(s): 45201473 Plan: Await results from echo. Check CBC and CMP in the morning. Patient seen and evaluated by nurse practitioner, physician in agreement with plan
--- NOTE | 2023-09-28 09:41 | P.OP ---
Date of Procedure: 09/26/23 Preoperative Diagnosis: diverticulitis Postoperative Diagnosis: diverticulitis Procedure(s) Performed: reversal colostomy Anesthesia: JOSE ALFREDO Surgeon: Odilon Ziegler Estimated Blood Loss (ml): 15 Pathology: other (colon) Condition: stable Disposition: PACU Description of Procedure: the patient's placed on the operating table in the supine position. He received general endotracheal tube anesthesia. He was then placed in dorsal 5 position. His abdomen was prepped and draped in usual sterile fashion. The patient's abdomen was entered through his midline scar. Electrocautery and sharp dissection the abdominal wall was divided. The Bookwalter retractors placed a wound. There were some adhesions to the anterior abdominal wall were lysed with sharp dissection. The colostomy was then visualized. The colostomy then transected at the fascial level using the CIARAN staplerarea this point the small bowel was dissected free from the pelvis. And the rectal stump was visualized. The proximal colon was opened and then the 29 mm EEA stapler anvil was placed in the colon. The colon was then closed using the CIARAN stapler at the opening. the spike for the anvil was driven through the staple line.at this point the desk assistant went below and placed the anal dilators the patient's anus. And then the 29 mm EEA stapler was placed patient anus. The spike for the stapler is then driven through the rectal staple line. The anvil was then connected to the stapler. The stapler is then closed and fired. The stapler was removed. 2 intact tissue rings were removed from the stapler. Next using a bowel clamp the distal colon was occluded. And then the desk assistant via the rigid anoscope was able to insufflate the rectum. The anastomosis visualized. There was a small area of extravasation at the staple line. This was seen under air insufflation underwater. At this point the staple line was buttressed with 3-0 GI silk suture. The rectum was then insufflated again with air. There is no evidence of any leakage. Next the abdomen was irrigated. Fascia at the colostomy site was closed using #1 Jose fix suture. The fascia was closed in looped #1 PDS suture. Skin was closed joseph. The colostomy then excised. The fascia was then closed with 0 Vicryl suture. Skin was closed joseph. Patient tolerated the procedure well. Was sent to recovery room in stable condition.
[2023-09-28 10:31] LABS: Basophils # (A) 0.03 X 10*3/uL (0.00-0.10); Basophils % (A) 0.3 %; Eosinophils # (A) 0.01 X 10*3/uL (0.04-0.35); Eosinophils % (A) 0.1 %; HGB 10.3 g/dL (13.0-17.0); Lymphocytes # (A) 0.92 X 10*3/uL (0.90-5.00); Lymphocytes % (A) 8.8 %; MCH 21.6 pg (27.0-32.0); MCHC 28.6 g/dL (32.0-37.0); MCV 75.6 FL (80.0-97.0); Mean Platelet Volume 10.3 FL (9.5-12.2); Monocytes % (A) 12.4 %; NRBC Per 100 WBC 0 X 10*3/uL (0.00-0.01); Neutrophils # (A) 8.18 X 10*3/uL (1.80-7.70); Platelet Count 195 X 10*3/uL (140-440); RBC 4.76 X 10*6/uL (4.40-5.60); RDW 17.5 % (11.5-14.5); WBC 10.48 X 10*3/uL (4.50-10.00)
[2023-09-28 10:44] LABS: BUN/Creat Ratio 9.38 Ratio (12.00-20.00); Blood Urea Nitrogen 7.5 mg/dL (9.0-27.0); Chloride 100 mmol/L (96-109); Glucose 135 mg/dL (70-110); Potassium 4.8 mmol/L (3.5-5.5); Sodium 132 mmol/L (135-145)
[2023-09-28 10:45] LABS: ALT 14 U/L (10-49); AST 24 U/L (14-35); Albumin 4.1 g/dL (3.8-4.9); Albumin/Globulin Ratio 1.78 Ratio (1.60-3.17); Alkaline Phosphatase 50 U/L (41-126); Calcium 8.4 mg/dL (8.7-10.3); Carbon Dioxide 23.1 mmol/L (21.6-31.8); Globulin 2.3 g/dL (1.6-3.3); Total Bilirubin 0.5 mg/dL (0.3-1.2); Total Protein 6.4 g/dL (6.2-8.2)
--- NOTE | 2023-09-28 12:10 | P.CRDCN ---
History of Present Illness History of present illness: HISTORY OF PRESENTING ILLNESS This is a pleasant 53-year-old with past medical history significant for hypertension, diverticulosis with prior colostomy placement 06/2023 and recent PE. 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 He does have family history of father with OH at the age of 51. Patient presented for elective colostomy reversal 09/25 which was uneventful. Postoperatively patient had hypoxemia and tachycardia and therefore workup performed with elevated d-dimer and eventually CT PE protocol showing bilateral PE. Patient additionally had elevated troponin of 0.3. He had an epidural at that time and this was pulled and then placed on heparin. Cardiology consult that for elevated troponin and PE. He does still have a wound VAC in place on his abdomen. Admits to some abdominal pain. Denies any actual chest pain or pressure. His main presentation after surgery was more shortness of breath. He does not smoke, quit alcohol a few months ago, family history of CAD in his father beginning at the age of 51. He has never had a stress test before or heart catheterization. EKG showed sinus tachycardia at 110 bpm, no significant ST or T wave abnormalities. REVIEW OF SYSTEMS At the time of my exam: CONSTITUTIONAL: Denies fever or chills. CARDIOVASCULAR: Denies chest pain,+ shortness of breath, orthopnea, PND or palpitations. RESPIRATORY: Denies cough. GASTROINTESTINAL: Denies abdominal pain, diarrhea, constipation, nausea or vomiting. MUSCULOSKELETAL: Denies myalgias. NEUROLOGIC: Denies numbness, tingling or weakness. ENDOCRINE: Denies fatigue, weight change, polydipsia or polyurina. GENITOURINARY: Denies burning, hematuria or urgency with micturation. HEMATOLOGIC: Denies history of anemia or bleeding. PHYSICAL EXAMINATION Vital signs reviewed. CONSTITUTIONAL: No apparent distress. HEENT: Head is normocephalic. Pupils are equal, round. Sclerae anicteric. Mucous membranes of the mouth are moist. No JVD. No carotid bruit. CHEST EXAMINATION: Lungs are clear to auscultation. No chest wall tenderness is noted on palpation or with deep breathing. HEART EXAMINATION: Regular rate and rhythm. S1, S2 heard. No murmurs, gallops or rub. ABDOMEN: Soft, nontender. Positive bowel sounds. EXTREMITIES: 2+ peripheral pulses, no lower extremity edema and no calf tenderness. NEUROLOGIC EXAMINATION: Patient is awake, alert and oriented x3. ASSESSMENT Submassive PE bilaterally Non-STEMI type 2 likely related to PE Hypertension Status post colostomy reversal 09/25 Family history of CAD PLAN Await 2-D echo. If there is significant RV strain may consider Inari thrombectomy, would avoid EKOS with TPA with patient still with wound vac. Does not appear consistent with coronary event and more related to PE. Consider outpt stress testing depending on progress. Past Medical History Past Medical History: Hypertension Additional Past Medical History / Comment(s): Diverticulitis. Has colostomy. History of Any Multi-Drug Resistant Organisms: MRSA Date of last positivie culture/infection: 06/14/18 MDRO Source:: AXILLA Past Surgical History: Bowel Resection, Joint Replacement Additional Past Surgical History / Comment(s): Right knee, cysts on buttock I&D, C5-7 surgery with cage Nov 2021, colostomy. Past Anesthesia/Blood Transfusion Reactions: Previous Problems w/ Anesthesia Additional Past Anesthesia/Blood Transfusion Reaction / Comment(s): Pressure drops and hard to wake up. Past Psychological History: No Psychological Hx Reported Smoking Status: Never smoker Past Alcohol Use History: None Reported Past Drug Use History: None Reported - Past Family History Brother(s) Family Medical History: Diabetes Mellitus Mother Family Medical History: Diabetes Mellitus Father Family Medical History: Myocardial Infarction (OH) Additional Family Medical History / Comment(s): OH at 51 and one at 66 when he passed. Medications and Allergies Home Medications Medication Instructions Recorded Confirmed Type lisinopriL [Zestril] 10 mg PO DAILY 06/13/23 09/25/23 History Ferrous Sulfate [Iron (65 MG 325 mg PO DAILY 08/03/23 09/25/23 History Elemental)] Citalopram Hydrobromide [CeleXA] 20 mg PO DAILY 09/20/23 09/25/23 History Allergies Allergy/AdvReac Type Severity Reaction Status Date / Time No Known Allergies Allergy Verified 09/26/23 09:39 Physical Exam Vitals: Vital Signs Temp Pulse Pulse Pulse Resp BP BP 09/28/23 11:12 98.0 F 88 18 127/79 09/28/23 08:29 99.0 F 93 20 126/84 09/28/23 01:00 113 H 20 09/27/23 23:43 98.3 F 113 H 18 115/78 09/27/23 21:24 123 H 101/65 09/27/23 19:49 107 H 09/27/23 19:29 98.2 F 107 H 18 119/74 09/27/23 19:25 09/27/23 14:07 98.3 F 91 16 109/71 Pulse Ox 09/28/23 11:12 98 09/28/23 08:29 97 09/28/23 01:00 09/27/23 23:43 09/27/23 21:24 93 L 09/27/23 19:49 09/27/23 19:29 91 L 09/27/23 19:25 79 L 09/27/23 14:07 90 L Intake and Output 09/27/23 09/28/23 09/28/23 22:59 06:59 14:59 Intake Total 400 540 800 Output Total 850 1575 Balance -450 -1035 800 Intake: IV 10 Invasive Line 1 10 Oral 400 540 790 Output: Urine 850 1575 Other: Voiding Method Indwelling Catheter Indwelling Catheter Indwelling Catheter Results 09/28/23 05:36 09/28/23 05:36 Cardiac Enzymes 09/27/23 09/27/23 09/28/23 Range/Units 20:25 20:25 05:36 AST 24 24 (17-59) U/L Troponin I 0.304 H* (0.000-0.034) ng/mL Coagulation 09/27/23 09/28/23 Range/Units 23:19 05:36 PT 11.4 (10.0-12.5) sec APTT 25.8 66.6 H (22.0-30.0) sec CBC 09/27/23 09/27/23 09/28/23 Range/Units 20:25 23:19 05:36 WBC 11.7 H 10.9 H 10.48 H (3.8-10.6) k/uL RBC 4.89 5.15 4.76 (4.30-5.90) m/uL Hgb 11.2 L 11.8 L 10.3 L (13.0-17.5) gm/dL Hct 37.0 L 39.4 36.0 L (39.0-53.0) % Plt Count 209 176 195 (150-450) k/uL Comprehensive Metabolic Panel 09/27/23 09/28/23 Range/Units 20:25 05:36 Sodium 128 L 132 L (137-145) mmol/L Potassium 4.7 4.8 (3.5-5.1) mmol/L Chloride 99 100 (98-107) mmol/L Carbon Dioxide 19 L 23.1 (22-30) mmol/L BUN 13 7.5 L (9-20) mg/dL Creatinine 0.83 0.8 (0.66-1.25) mg/dL Glucose 155 H 135 H (74-99) mg/dL Calcium 8.7 8.4 L (8.4-10.2) mg/dL AST 24 24 (17-59) U/L ALT 15 14 (4-49) U/L Alkaline Phosphatase 48 50 (38-126) U/L Total Protein 6.8 6.4 (6.3-8.2) g/dL Albumin 4.2 4.1 (3.5-5.0) g/dL Current Medications Generic Name Dose Route Start Last Admin Trade Name Freq PRN Reason Stop Dose Admin Alvimopan 12 mg 09/26/23 21:00 09/28/23 09:55 Alvimopan 12 Mg Capsule PO 10/03/23 09:01 12 mg BID ABBY Administration Benzocaine/Menthol 1 each 09/26/23 12:26 Benzocaine/Menthol Lozeng 1 Each Lozenge MUCOUS MEM Q1HR PRN Sore Throat Hydromorphone HCl 0.5 mg 09/27/23 23:10 Hydromorphone 0.5 Mg/0.5 Ml Syringe IVP Q6HR PRN Pain Scale 6 To 8 Hydromorphone HCl 1 mg 09/27/23 23:10 09/28/23 06:14 Hydromorphone 1 Mg/Ml 1 Ml Syringe IVP 1 mg Q6HR PRN Administration Severe Pain (Scale 7 to 10) Lactated Ringer's 1,000 mls @ 20 mls/hr 09/26/23 09:00 09/28/23 09:54 Lactated Ringers IV Not Given .Q24H ABBY Potassium Chloride/Dextrose/Sod Cl 1,000 mls @ 125 mls/hr 09/26/23 12:30 09/28/23 02:26 D5%-1/2ns-Kcl 20 Meq/L Iv Solution IV 125 mls/hr .Q8H ABBY Administration Heparin Sodium/Sodium Chloride 250 mls @ 20.34 mls/hr 09/27/23 23:15 09/27/23 23:52 25,000 unit/ Sodium Chloride IV 18 units/kg/hr .[id number] ABBY 20.34 mls/hr Administration Protocol 18 UNITS/KG/HR Naloxone HCl 0.2 mg 09/26/23 10:43 Naloxone 0.4 Mg/Ml 1 Ml Vial IV Q2M PRN Opioid Reversal Ondansetron HCl 4 mg 09/26/23 12:26 09/27/23 12:42 Ondansetron 4 Mg/2 Ml Vial IVP 4 mg Q8HR PRN Administration Nausea And Vomiting Pantoprazole Sodium 40 mg 09/27/23 13:12 09/28/23 09:54 Pantoprazole 40 Mg/10 Ml Vial IVP 40 mg DAILY ABBY Administration Intake and Output 09/27/23 09/28/23 09/28/23 22:59 06:59 14:59 Intake Total 400 540 800 Output Total 850 1575 Balance -450 -1035 800 Intake: IV 10 Invasive Line 1 10 Oral 400 540 790 Output: Urine 850 1575 Other: Voiding Method Indwelling Catheter Indwelling Catheter Indwelling Catheter 09/28/23 05:36 09/28/23 05:36
--- NOTE | 2023-09-28 17:47 | CA ---
Transthoracic Echo Report Name: Norman Mahoney Age: 53 Gender: M : 1970 Exam Date: 09/28/2023 08:35 Exam Location: [facility] Ht (in): 65 Wt (lb): 249 Ordering Physician: Adithya Phillips Attending/Referring Phys: Car Filler Yenifer Frey RDCS Procedure CPT: Indications: bilateral PE; evaluate heart strain Cardiac Hx: Technical Quality: Poor, Fair Contrast 1: Definity Total Dose (mL): 2 Contrast 2: Total Dose (mL): MEASUREMENTS (Male / Female) Normal Values 2D ECHO LV Diastolic Diameter PLAX 4.4 cm 4.2 - 5.9 / 3.9 - 5.3 cm LV Systolic Diameter PLAX 2.4 cm IVS Diastolic Thickness 1.3 cm 0.6 - 1.0 / 0.6 - 0.9 cm LVPW Diastolic Thickness 1.1 cm 0.6 - 1.0 / 0.6 - 0.9 cm LV Relative Wall Thickness 0.6 RV Internal Dim ED PLAX 3.9 cm Aortic Root Diameter 4.0 cm LA Systolic Diameter LX 3.7 cm 3.0 - 4.0 / 2.7 - 3.8 cm M-MODE Aortic Root Diameter MM 3.5 cm LA Systolic Diameter MM 3.6 cm LA Ao Ratio MM 1.0 AV Cusp Separation MM 2.4 cm DOPPLER Mitral E Point Velocity 56.6 cm/s Mitral A Point Velocity 67.0 cm/s Mitral E to A Ratio 0.8 MV Deceleration Time 216.2 ms MV E' Velocity 7.3 cm/s Mitral E to MV E' Ratio 7.8 TR Peak Velocity 273.0 cm/s TR Peak Gradient 29.8 mmHg Right Ventricular Systolic Press 39.8 mmHg FINDINGS Left Ventricle Left ventricular ejection fraction is estimated at 60-65 %. Mildly increased septal wall thickness. Left ventricular cavity size normal. No obvious regional wall motion abnormalities. Right Ventricle Severe right ventricular dilatation. Severely reduced right ventricular global systolic function. Mild pulmonary hypertension. Right Atrium Mild right atrial dilatation. Left Atrium Mild left atrial dilatation. Mitral Valve Structurally normal mitral valve. Trace mitral regurgitation. Aortic Valve Trileaflet aortic valve. No aortic valve stenosis or regurgitation. Tricuspid Valve Structurally normal tricuspid valve. Moderate tricuspid regurgitation. Pulmonic Valve Structurally normal pulmonic valve. Trace pulmonic regurgitation. No pulmonic stenosis. Pericardium No pericardial or pleural effusion. Aorta Normal size aortic root and proximal ascending aorta. CONCLUSIONS LVEF 60 to 65% No obvious regional wall motion abnormality Severe RV dilatation with severely reduced systolic function. RVSP estimated at 40 mmHg Moderate tricuspid regurgitation. Signs of RV strain present Previewed by: Dr Remi Barbour (Electronically Signed) Final Date: 28 September 2023 17:46
--- NOTE | 2023-09-29 03:28 | PN ---
PROGRESS NOTE DATE OF SERVICE: 09/28/2023 CHIEF COMPLAINT: Diverticulitis. HISTORY OF PRESENT ILLNESS: The patient is postop day #2, status post colostomy reversal. The patient had tachycardia and shortness of breath yesterday and a CTA of the chest showed evidence of bilateral PE. He has been started on IV heparin and transferred to the cardiac floor. The patient's abdominal pain is controlled. His epidural was discontinued yesterday. He denies any nausea or vomiting. Afebrile. WBC 10.48, HGB 10.3, platelets 195. The patient also being followed by Cardiology Service. He does have mildly elevated troponins. Echocardiogram pending. PHYSICAL EXAMINATION: ABDOMEN: Soft, nondistended, mild tenderness at incision site. Prevena wound VAC intact. ASSESSMENT: Diverticulitis, status post colostomy reversal. PLAN: Continue clear liquid diet. Continue pain management. Encourage the patient to ambulate. Continue to use incentive spirometer and PE management per Pulmonary Service. Currently on IV heparin. MMODL / IJN: [id number] /
--- NOTE | 2023-09-29 08:33 | P.PN ---
Subjective Progress Note Date: 09/29/23 Principal diagnosis: The patient is status post colostomy reversal secondary to diverticulitis and abscess. The patient had postop pulmonary embolus with heart strain. Echocardiogram is noted. The patient is now scheduled for thrombectomy. I explained the procedure and and how it could benefit his overall prognosis. The patient understands Significant chest pain no voiding difficulties. No nausea, vomiting or diarrhea. Objective - Vital Signs Vital signs: Vital Signs Temp 98.3 F 09/29/23 01:51 Pulse 70 09/29/23 01:51 Resp 16 09/29/23 01:51 BP 133/69 09/29/23 01:51 Pulse Ox 97 09/29/23 01:51 FiO2 Intake & Output 09/28/23 09/29/23 09/29/23 18:59 06:59 18:59 Intake Total 1168 244.249 0 Output Total 2200 1300 Balance -1032 -1055.751 0 Intake: IV 10 10 Invasive Line 1 10 10 Intake, IV Titration 250 234.249 Amount Heparin Sod,Pork in 0.45% 250 234.249 NaCl 25,000 unit In 0.45 % NaCl 1 250ml.bag @ 18 UNITS/KG/HR 20.34 mls/hr IV .[id number] [facility] Rx#: [id number] Oral 908 0 Output: Urine 2200 1300 Other: Voiding Method Indwelling Catheter Indwelling Catheter - Constitutional General appearance: Present: cooperative, obese - EENT Eyes: Absent: abnormal pupil - Respiratory Respiratory: bilateral: diminished - Cardiovascular Rhythm: regular Heart sounds: normal: S1, S2 Abnormal Heart Sounds: Absent: S3 Gallop - Gastrointestinal General gastrointestinal: Present: soft. Absent: tenderness - Psychiatric Psychiatric: Present: A&O x's 3 - Labs CBC & Chem 7: 09/28/23 05:36 09/28/23 05:36 Labs: Abnormal Lab Results - Last 24 Hours (Table) 09/28/23 09/28/23 09/28/23 Range/Units 05:36 05:36 12:22 WBC 10.48 H (4.50-10.00) X 10*3/uL Hgb 10.3 L (13.0-17.0) g/dL Hct 36.0 L (39.6-50.0) % MCV 75.6 L (80.0-97.0) FL MCH 21.6 L (27.0-32.0) pg MCHC 28.6 L (32.0-37.0) g/dL RDW 17.5 H (11.5-14.5) % Neutrophils # 8.18 H (1.80-7.70) X 10*3/uL Monocytes # 1.30 H (0.20-1.00) X 10*3/uL Eosinophils # 0.01 L (0.04-0.35) X 10*3/uL Sodium 132 L (135-145) mmol/L BUN 7.5 L (9.0-27.0) mg/dL BUN/Creatinine Ratio 9.38 L (12.00-20.00) Ratio Glucose 135 H (70-110) mg/dL Calcium 8.4 L (8.7-10.3) mg/dL Troponin I 0.209 H* (0.000-0.034) ng/mL Assessment and Plan (1) History of colostomy reversal Current Visit: Yes Status: Acute Code(s): Z98.890 - OTHER SPECIFIED POSTPROCEDURAL STATES SNOMED Code(s): 02770523484620475 (2) Hypertension Current Visit: No Status: Acute Code(s): I10 - ESSENTIAL (PRIMARY) HYPERTENSION SNOMED Code(s): 04429701 (3) Moderate major depression Current Visit: Yes Status: Acute Code(s): F32.1 - MAJOR DEPRESSIVE DISORDER, SINGLE EPISODE, MODERATE SNOMED Code(s): 913761 Plan: Await thrombectomy. Stabilization from pulmonary embolus noted. Minimal pain is stated. Status post colostomy reversal secondary to acute diverticulitis with abscess. Check CBC and CMP in a.m.
[2023-09-29 08:34] LABS: Anisocytosis Slight; HCT 35.1 % (39.0-53.0); HGB 10.6 gm/dL (13.0-17.5); Hypochromasia Moderate; MCH 22.9 pg (25.0-35.0); MCHC 30.3 g/dL (31.0-37.0); MCV 75.7 fL (80.0-100.0); Mean Platelet Volume 7.9; Microcytosis Slight; Platelet Count 184 k/uL (150-450); RBC 4.64 m/uL (4.30-5.90); RDW 17.1 % (11.5-15.5); WBC 7.3 k/uL (3.8-10.6)
[2023-09-29 08:52] LABS: ALT 12 U/L (4-49); AST 20 U/L (17-59); African American GFR (CKD) >90 (>60 ml/min/1.73 sqM); Albumin 3.4 g/dL (3.5-5.0); Alkaline Phosphatase 54 U/L (38-126); Anion Gap 3 mmol/L; Blood Urea Nitrogen 5 mg/dL (9-20); Calcium 8.5 mg/dL (8.4-10.2); Carbon Dioxide 28 mmol/L (22-30); Chloride 104 mmol/L (98-107); Glucose 114 mg/dL (74-99); Non-African American GFR(CKD) >90 (>60 ml/min/1.73 sqM); Potassium 4.3 mmol/L (3.5-5.1); Sodium 135 mmol/L (137-145); Total Bilirubin 0.6 mg/dL (0.2-1.3)
--- NOTE | 2023-09-29 09:37 | P.GSCN ---
History of Present Illness Consult date: 09/29/23 Reason for Consult: PE thrombectomy Requesting physician: Giuliano Syed History of present illness: This is a pleasant 53-year-old with past medical history significant for hypertension, morbid obesity, diverticulosis with prior colostomy placement 06/2023 and recent pulmonary embolism. Patient presented for elective colostomy reversal 09/25 which was uneventful. Postoperatively patient had hypoxemia and tachycardia and therefore workup performed with elevated d-dimer and eventually CT PE protocol showing bilateral PE. Patient additionally had elevated troponin of 0.3. He had an epidural at that time and this was pulled and then placed on heparin. Cardiology was initially consulted for elevated troponin and PE. He does still have a wound VAC in place on his abdomen and Poe catheter in place with good output. Admits to some abdominal pain. Denies any actual chest pain or pressure. His main presentation after surgery was more shortness of breath. He does not smoke, quit alcohol a few months ago, family history of CAD. He had an echocardiogram with noted severe right ventricle dilation, severely reduced right ventricular global systolic function mild pulmonary hypertension. Vascular surgery was consulted for pulmonary thrombectomy. Patient currently states breathing has improved. He is currently on 2 L of nasal cannula with oxygen saturation at 99%. Breathing is nonlabored. He den ies any chest pain. No pain in the lower extremities. He is currently on a heparin drip. Review of Systems A 14 point review systems was completed all pertinent positives and negatives as stated in the HPI. Past Medical History Past Medical History: Hypertension Additional Past Medical History / Comment(s): Diverticulitis. Has colostomy. History of Any Multi-Drug Resistant Organisms: MRSA Year Discovered:: 06/14/18 MDRO Source:: [facility] Past Surgical History: Bowel Resection, Joint Replacement Additional Past Surgical History / Comment(s): Right knee, cysts on buttock I&D, C5-7 surgery with cage Nov 2021, colostomy. Past Anesthesia/Blood Transfusion Reactions: Previous Problems w/ Anesthesia Additional Past Anesthesia/Blood Transfusion Reaction / Comm: Pressure drops and hard to wake up. Past Psychological History: No Psychological Hx Reported Smoking Status: Never smoker Past Alcohol Use History: None Reported Past Drug Use History: None Reported - Past Family History Brother(s) Family Medical History: Diabetes Mellitus Mother Family Medical History: Diabetes Mellitus Father Family Medical History: Myocardial Infarction (LA) Additional Family Medical History / Comment(s): LA at 51 and one at 66 when he passed. Medications and Allergies Home Medications Medication Instructions Recorded Confirmed Type lisinopriL [Zestril] 10 mg PO DAILY 06/13/23 09/25/23 History Ferrous Sulfate [Iron (65 MG 325 mg PO DAILY 08/03/23 09/25/23 History Elemental)] Citalopram Hydrobromide [CeleXA] 20 mg PO DAILY 09/20/23 09/25/23 History Allergies Allergy/AdvReac Type Severity Reaction Status Date / Time No Known Allergies Allergy Verified 09/26/23 09:39 Surgical - Exam Vital Signs Temp Pulse Resp BP Pulse Ox 97.7 F 81 16 136/76 97 09/26/23 09:41 09/26/23 09:41 09/26/23 09:41 09/26/23 09:41 09/26/23 09:41 Results - Labs 09/29/23 07:40 09/29/23 07:40 Abnormal Lab Results - Last 24 Hours (Table) 09/28/23 09/28/23 09/28/23 Range/Units 05:36 05:36 12:22 WBC 10.48 H (4.50-10.00) X 10*3/uL Hgb 10.3 L (13.0-17.0) g/dL Hct 36.0 L (39.6-50.0) % MCV 75.6 L (80.0-97.0) FL MCH 21.6 L (27.0-32.0) pg MCHC 28.6 L (32.0-37.0) g/dL RDW 17.5 H (11.5-14.5) % Neutrophils # 8.18 H (1.80-7.70) X 10*3/uL Monocytes # 1.30 H (0.20-1.00) X 10*3/uL Eosinophils # 0.01 L (0.04-0.35) X 10*3/uL Sodium 132 L (135-145) mmol/L BUN 7.5 L (9.0-27.0) mg/dL BUN/Creatinine Ratio 9.38 L (12.00-20.00) Ratio Glucose 135 H (70-110) mg/dL Calcium 8.4 L (8.7-10.3) mg/dL Troponin I 0.209 H* (0.000-0.034) ng/mL Diabetes panel 09/28/23 Range/Units 05:36 Sodium 132 L (135-145) mmol/L Potassium 4.8 (3.5-5.5) mmol/L Chloride 100 (96-109) mmol/L Carbon Dioxide 23.1 (21.6-31.8) mmol/L BUN 7.5 L (9.0-27.0) mg/dL Creatinine 0.8 (0.6-1.5) mg/dL Glucose 135 H (70-110) mg/dL Calcium 8.4 L (8.7-10.3) mg/dL AST 24 (14-35) U/L ALT 14 (10-49) U/L Alkaline Phosphatase 50 (41-126) U/L Total Protein 6.4 (6.2-8.2) g/dL Albumin 4.1 (3.8-4.9) g/dL Calcium panel 09/28/23 Range/Units 05:36 Calcium 8.4 L (8.7-10.3) mg/dL Albumin 4.1 (3.8-4.9) g/dL Pituitary panel 09/28/23 Range/Units 05:36 Sodium 132 L (135-145) mmol/L Potassium 4.8 (3.5-5.5) mmol/L Chloride 100 (96-109) mmol/L Carbon Dioxide 23.1 (21.6-31.8) mmol/L BUN 7.5 L (9.0-27.0) mg/dL Creatinine 0.8 (0.6-1.5) mg/dL Glucose 135 H (70-110) mg/dL Calcium 8.4 L (8.7-10.3) mg/dL Adrenal panel 09/28/23 Range/Units 05:36 Sodium 132 L (135-145) mmol/L Potassium 4.8 (3.5-5.5) mmol/L Chloride 100 (96-109) mmol/L Carbon Dioxide 23.1 (21.6-31.8) mmol/L BUN 7.5 L (9.0-27.0) mg/dL Creatinine 0.8 (0.6-1.5) mg/dL Glucose 135 H (70-110) mg/dL Calcium 8.4 L (8.7-10.3) mg/dL Total Bilirubin 0.5 (0.3-1.2) mg/dL AST 24 (14-35) U/L ALT 14 (10-49) U/L Alkaline Phosphatase 50 (41-126) U/L Total Protein 6.4 (6.2-8.2) g/dL Albumin 4.1 (3.8-4.9) g/dL - Imaging Comments: Chest CT angiogram reports bilateral upper and lower lobe pulmonary emboli Venous duplex bilateral lower extremities reports no ultrasound evidence for acute DVT in either lower extremity Echocardiogram reports EF 60 to 65%. Severe RV dilation with severely reduced systolic function. RVSP estimated at 40 mmHg, moderate tricuspid regurgitation, signs of RV strain present. Assessment and Plan Assessment: 1. Bilateral pulmonary emboli with evidence of right heart strain 2. Hypoxemia secondary to above 3. Recent colostomy reversal on 09/26/2023 4. Morbid obesity 5. History of hypertension Plan: 1. Continue heparin drip 2. Keep n.p.o. 3. Plan for pulmonary thrombectomy with Inari, procedure discussed in detail with patient including risks and benefits. Patient is agreeable to proceed. 4. Rest of medical management per primary medical team and general surgery Thank you for this consultation, we will continue to follow. The impression and plan of care has been dictated as directed. Dr. Poe I performed a history and examination of this patient, discussed the same with the dictator. I agree with the dictator's note ,documented as a scribe. Any additional findings or plans will be noted.
[2023-09-29] MEDS ORDERED: LIDOCAINE 1% INJ 10MG/ML (20 ML MDV) ONE (10:31)
[2023-09-29] MEDS ORDERED: fentaNYL (PF) 50 MCG/ML 2 ML AMP ONE (10:32)
[2023-09-29] MEDS ORDERED: HEPARIN SODIUM 1,000 UN/ML (10ML VL) ONE (10:32)
[2023-09-29] MEDS: fentaNYL (PF) 50 MCG/ML 2 ML AMP IVP ONE (11:00)
[2023-09-29] MEDS: MIDAZOLAM 2 MG/2 ML VIAL IVP ONE (11:00)
[2023-09-29] MEDS: LIDOCAINE 1% INJ 10MG/ML (20 ML MDV) SQ ONE ×2 (11:01→11:03)
[2023-09-29] MEDS: HEPARIN SODIUM 1,000 UN/ML (10ML VL) IVP ONE ×2 (11:15→11:33)
[2023-09-29] MEDS: SODIUM CHLORIDE 0.9% 1,000 ML IV ONE (11:16)
[2023-09-29] MEDS: IOPAMIDOL-250 100ML BTL INTRAARTER ONE (11:35)
--- NOTE | 2023-09-29 11:54 | P.OP ---
Date of Procedure: 09/29/23 Description of Procedure: Preoperative diagnosis: Submassive pulmonary embolism with evidence of right heart strain Post operative diagnosis: Same Procedure: Ultrasound-guided right common femoral vein access Right iliofemoral venogram Introduction of catheter into the inferior vena cava Introduction of catheter into the main pulmonary artery Selective right pulmonary angiogram Primary percutaneous transluminal mechanical thrombectomy of the main pulmonary artery Percutaneous transluminal mechanical thrombectomy of the right pulmonary artery, right interlobar artery and right middle lobe segmental branch Moderate conscious sedation x 36 minutes Surgeon: Deepika Anesthesia: Moderate conscious sedation, personally monitored qualified RN with patient monitoring History and indications: The patient is a 53-year-old with recent abdominal surgery for reversal of previous ostomy. In the postoperative period he was found to have pulmonary embolism bilaterally with evidence of submassive pulmonary embolism confirmed by imaging. Risks and benefits of going forward with all modes of intervention were discussed and it was decided upon mechanical thrombectomy. Procedure in detail: Patient was brought to the special suite and placed in supine position. The bilateral groins were prepped and draped in usual sterile fashion. A preprocedural timeout was performed, all parties were in agreement. Using ultrasound, the common femoral vein was identified. There appeared to be adequate compression without evidence of thrombus. A permanent image was stored. Under ultrasound guidance, a micropuncture needle was utilized to access the vein and Seldinger technique was used to place a 8 Gabonese sheath. A right iliofemoral venogram was performed showing no evidence of thrombus. Guidewires and catheters were then used to access the pulmonary artery. An Amplatz wire was then left in place and the pulmonary artery. The femoral sheath was exchanged for the Inari 24F sheath. The thrombectomy catheter was then advanced over the Amplatz wire and mechanical thrombectomy was performed aspirating significant thrombus. There was successful extirpation of matter via mechanical thrombectomy within the pulmonary artery catheters and wires were then removed. The sheath was removed and manual compression was performed along with a [id number] suture. Hemostasis appeared adequate.
--- NOTE | 2023-09-29 13:07 | IR ---
EXAMINATION TYPE: IR transcath embolizat therapy Intraoperative/procedural fluoroscopic services were provided. CLINICAL INDICATION:Male, 53 years old with history of BI LAT PE, 6.5MIN FLUORO, [id number]; , [facility] Total fluoroscopy time is 6.5 min. DAP: 19.4 Gycm2 Please see the operative/procedural note for further details.
--- NOTE | 2023-09-29 13:24 | P.PN ---
Subjective Progress Note Date: 09/29/23 Principal diagnosis: Pulmonary embolism. Patient is a 53-year-old white male with past medical history significant for bowel obstruction and previous sigmoidectomy with end colostomy performed 06/13/2023. Pathology was benign for malignancy, consistent with diverticulitis and abscess. Also, had a recent hospitalization in Aug, 2023 for abdominal wall cellulitis. Patient was admitted 09/26/2023 for an elective colostomy reversal. No intraoperative complications reported. Postoperatively, patient was noted to be hypoxemic and tachycardic. A D-dimer was drawn and elevated at 17. A follow-up chest CTA demonstrated multiple filling defects in the distal right and left pulmonary arteries and proximal segmental branches consistent with bilateral pulmonary emboli. No definitive evidence of right-sided heart strain. Patient does have a epidural, and we did reach out to anesthesia services. I did speak to my supervising physician, who had already spoke to Dr. Mistry, and agreed with removal of epidural and starting the patient on systemic heparin. Overall, patient is hemodynamically stable. He continues on 4 L/min nasal cannula. SpO2 is 93%. Minimally dyspneic with conversation. Heart rate is 110 bpm. Blood pressure is normotensive. CBC: WBC count 10.9, hemoglobin 11.8, hematocrit 39.4, platelets 176. Baseline coagulation profile unremarkable, APTT 25.8. BMP: Sodium 128, potassium 4.7, chloride 99, serum bicarb 19, BUN 13, creatinine 0.83, glucose 155. Patient is currently lying flat in bed. He denies any significant complaints. Denies shortness of breath or chest pain. Denies any personal or familial history of thromboembolic disease. Denies unilateral lower extremity swelling. The nurses already removed his epidural catheter. No drainage or hematoma. Postsurgical abdominal incision dressed with wound VAC. Very minimal serosanguineous output in canister. Patient is going to be transferred to the selective care unit for closer monitoring. Progress note dated September 29, 2023. 53-year-old male with a history of bowel obstruction, with previous sigmoidectomy, with end colostomy, which was performed in June of this year. Pathology was consistent with diverticulitis, and abscess. The patient was readmitted to the hospital, and had a reversal of colostomy performed. He developed postoperative shortness of breath, was found to have pulmonary embolism. The CT angiogram, did not reveal a right heart strain, but apparently the echocardiogram did. The patient did go for a suction thrombectomy, with Dr. Poe today. The patient was on IV heparin, and 2 L by nasal cannula. Saturations were 95%. Current labs include a white count 7.3, hemoglobin 10.6, hematocrit 35.1, and a normal platelet count. PTT was 47. Sodium 135, potassium 4.3, chlorides 104, CO2 28, BUN 5, creatinine 0.65. Troponins were 0.304 and 0.209. Objective - Vital Signs Vital signs: Vital Signs Temp 98.1 F 09/29/23 08:33 Pulse 76 09/29/23 08:33 Resp 18 09/29/23 08:33 BP 132/81 09/29/23 08:33 Pulse Ox 99 09/29/23 08:33 FiO2 Intake & Output 09/28/23 09/29/23 09/29/23 18:59 06:59 18:59 Intake Total 1168 244.249 232.045 Output Total 2200 1300 900 Balance -1032 -1055.751 -667.955 Intake: IV 10 10 10 Invasive Line 1 10 10 10 Intake, IV Titration 250 234.249 222.045 Amount Heparin Sod,Pork in 0.45% 250 234.249 222.045 NaCl 25,000 unit In 0.45 % NaCl 1 250ml.bag @ 18 UNITS/KG/HR 20.34 mls/hr IV .[id number] [facility] Rx#: [id number] Oral 908 0 Output: Urine 2200 1300 900 Uretheral (Poe) 900 Other: Voiding Method Indwelling Catheter Indwelling Catheter Indwelling Catheter - Exam No acute distress, oriented 3. 2 L saturation is 99%. HEENT examination is grossly unremarkable. Mucous membranes are moist. No oral lesions. Neck supple. Full range of motion. No adenopathy thyromegaly or neck vein distention. Cardiovascular examination reveals regular rhythm rate. S1-S2 normal. No S3 or S4. No discernible murmur noted. Heart rate 76 bpm. Lungs reveal clear breath sounds. Breath sounds are equal bilaterally. No adventitious lung sounds including wheezes rhonchi or crackles. Abdomen soft bowel sounds are heard. No masses or tenderness. Extremities are intact. No cyanosis clubbing or edema. Skin is without rash or lesion. Neurologic examination is brief but nonfocal. - Labs CBC & Chem 7: 09/29/23 07:40 09/29/23 07:40 Labs: Abnormal Lab Results - Last 24 Hours (Table) 09/28/23 09/29/23 09/29/23 Range/Units 12:22 07:40 07:40 Hgb 10.6 L (13.0-17.5) gm/dL Hct 35.1 L (39.0-53.0) % MCV 75.7 L (80.0-100.0) fL MCH 22.9 L (25.0-35.0) pg MCHC 30.3 L (31.0-37.0) g/dL RDW 17.1 H (11.5-15.5) % APTT (22.0-30.0) sec Sodium 135 L (137-145) mmol/L BUN 5 L (9-20) mg/dL Creatinine 0.65 L (0.66-1.25) mg/dL Glucose 114 H (74-99) mg/dL Troponin I 0.209 H* (0.000-0.034) ng/mL Total Protein 6.0 L (6.3-8.2) g/dL Albumin 3.4 L (3.5-5.0) g/dL 09/29/23 Range/Units 07:40 Hgb (13.0-17.5) gm/dL Hct (39.0-53.0) % MCV (80.0-100.0) fL MCH (25.0-35.0) pg MCHC (31.0-37.0) g/dL RDW (11.5-15.5) % APTT 47.0 H (22.0-30.0) sec Sodium (137-145) mmol/L BUN (9-20) mg/dL Creatinine (0.66-1.25) mg/dL Glucose (74-99) mg/dL Troponin I (0.000-0.034) ng/mL Total Protein (6.3-8.2) g/dL Albumin (3.5-5.0) g/dL Assessment and Plan Assessment: Bilateral segmental and subsegmental pulmonary emboli, no CT evidence of right- sided heart strain, significant strain noted on echocardiogram. S/P suction thrombectomy (Inari), September 29, 2023. Acute hypoxemic respiratory failure, currently on 2 L/min nasal cannula. Postoperative day #3 following colostomy reversal. History of sigmoidectomy, secondary to diverticulitis with abscess, performed on 06/13/2023. History of abdominal wall cellulitis. History of hypertension. Morbid obesity, with a BMI of 41.5 kg/m. Plan: Plan dated September 29, 2023. The patient went for suction thrombectomy today, with Dr. Poe. The patient's initial CT angiogram, did not reveal any right heart strain, but severe strain was seen on the echocardiogram. The patient is on 2 L of oxygen. Vital signs are stable. The patient denies any significant shortness of breath, chest pain, chest discomfort, etc. We will continue to follow make recommendations along the way. Prognosis is guarded. No additional recommendations are made at this time. Labs, x-rays, and medications have been reviewed. Time with Patient: Less than 30
--- NOTE | 2023-09-29 14:43 | P.PN ---
Subjective Progress Note Date: 09/29/23 patient underwent palmar thrombectomy today. He feels well. His abdomen is soft. Incision is clean dry tach. Status post reversal of colostomy with pulmonary embolus on postoperative day 1. Patient will receive supportive care. He'll be placed on full liquid diet. Objective - Vital Signs Vital signs: Vital Signs Temp 98.1 F 09/29/23 08:33 Pulse 74 09/29/23 13:40 Resp 16 09/29/23 13:40 BP 126/82 09/29/23 13:40 Pulse Ox 99 09/29/23 13:40 FiO2 Intake & Output 09/28/23 09/29/23 09/29/23 18:59 06:59 18:59 Intake Total 1168 244.249 232.045 Output Total 2200 1300 900 Balance -1032 -1055.751 -667.955 Weight 113 kg Intake: IV 10 10 10 Invasive Line 1 10 10 10 Intake, IV Titration 250 234.249 222.045 Amount Heparin Sod,Pork in 0.45% 250 234.249 222.045 NaCl 25,000 unit In 0.45 % NaCl 1 250ml.bag @ 18 UNITS/KG/HR 20.34 mls/hr IV .[id number] [facility] Rx#: [id number] Oral 908 0 Output: Urine 2200 1300 900 Uretheral (Poe) 900 Other: Voiding Method Indwelling Catheter Indwelling Catheter Indwelling Catheter - Labs CBC & Chem 7: 09/29/23 07:40 09/29/23 07:40 Labs: Abnormal Lab Results - Last 24 Hours (Table) 09/29/23 09/29/23 09/29/23 Range/Units 07:40 07:40 07:40 Hgb 10.6 L (13.0-17.5) gm/dL Hct 35.1 L (39.0-53.0) % MCV 75.7 L (80.0-100.0) fL MCH 22.9 L (25.0-35.0) pg MCHC 30.3 L (31.0-37.0) g/dL RDW 17.1 H (11.5-15.5) % APTT 47.0 H (22.0-30.0) sec Sodium 135 L (137-145) mmol/L BUN 5 L (9-20) mg/dL Creatinine 0.65 L (0.66-1.25) mg/dL Glucose 114 H (74-99) mg/dL Total Protein 6.0 L (6.3-8.2) g/dL Albumin 3.4 L (3.5-5.0) g/dL
--- NOTE | 2023-09-29 15:17 | P.PN ---
Subjective This is a pleasant 53-year-old with past medical history significant for hypertension, diverticulosis with prior colostomy placement 06/2023 and recent PE. He is not followed office with any revenue agent. He does have family history of father with UT at the age of 51. Patient presented for elective colostomy reversal 09/25 which was uneventful. Postoperatively patient had hypoxemia and tachycardia and therefore workup performed with elevated d-dimer and eventually CT PE protocol showing bilateral PE. Patient additionally had elevated troponin of 0.3. He had an epidural at that time and this was pulled and then placed on heparin. Cardiology consult that for elevated troponin and PE. He does still have a wound VAC in place on his abdomen. Admits to some abdominal pain. Denies any actual chest pain or pressure. His main presentati on after surgery was more shortness of breath. He does not smoke, quit alcohol a few months ago, family history of CAD in his father beginning at the age of 51. He has never had a stress test before or heart catheterization. EKG showed sinus tachycardia at 110 bpm, no significant ST or T wave abnormalities. REVIEW OF SYSTEMS 09/28 Patient seen and examined. Patient had echo which showed severely dilated right ventricle and elevated RVSP and therefore consult for PE management with vascular surgery as they are on-call for PERT team. He therefore underwent Inari thrombectomy from a femoral approach with some improvement in his saturations. He states overall he feels mildly better. Denies any chest pain or pressure. He does have some heartburn, GERD sensation likely from lying flat in bed. PHYSICAL EXAMINATION Vital signs reviewed. CONSTITUTIONAL: No apparent distress. HEENT: Head is normocephalic. Pupils are equal, round. Sclerae anicteric. Mucous membranes of the mouth are moist. No JVD. No carotid bruit. CHEST EXAMINATION: Lungs are clear to auscultation. No chest wall tenderness is noted on palpation or with deep breathing. HEART EXAMINATION: Regular rate and rhythm. S1, S2 heard. No murmurs, gallops or rub. ABDOMEN: Soft, nontender. Positive bowel sounds. EXTREMITIES: 2+ peripheral pulses, no lower extremity edema and no calf tenderness. NEUROLOGIC EXAMINATION: Patient is awake, alert and oriented x3. ASSESSMENT Submassive PE bilaterally, s/p Inari thrombectomy Non-STEMI type 2 likely related to PE Hypertension Status post colostomy reversal 09/25 Family history of CAD PLAN Continue the anticoagulation. He is status post Inari. Likely consider outpt stress testing Objective - Vital Signs Vital signs: Vital Signs Temp 98.1 F 09/29/23 08:33 Pulse 74 09/29/23 13:40 Resp 16 09/29/23 13:40 BP 126/82 09/29/23 13:40 Pulse Ox 99 09/29/23 13:40 FiO2 Intake & Output 09/28/23 09/29/23 09/29/23 18:59 06:59 18:59 Intake Total 1168 244.249 232.045 Output Total 2200 1300 900 Balance -1032 -1055.751 -667.955 Weight 113 kg Intake: IV 10 10 10 Invasive Line 1 10 10 10 Intake, IV Titration 250 234.249 222.045 Amount Heparin Sod,Pork in 0.45% 250 234.249 222.045 NaCl 25,000 unit In 0.45 % NaCl 1 250ml.bag @ 18 UNITS/KG/HR 20.34 mls/hr IV .[id number] [facility] Rx#: [id number] Oral 908 0 Output: Urine 2200 1300 900 Uretheral (Poe) 900 Other: Voiding Method Indwelling Catheter Indwelling Catheter Indwelling Catheter - Labs CBC & Chem 7: 09/29/23 07:40 09/29/23 07:40 Labs: Abnormal Lab Results - Last 24 Hours (Table) 09/29/23 09/29/23 09/29/23 Range/Units 07:40 07:40 07:40 Hgb 10.6 L (13.0-17.5) gm/dL Hct 35.1 L (39.0-53.0) % MCV 75.7 L (80.0-100.0) fL MCH 22.9 L (25.0-35.0) pg MCHC 30.3 L (31.0-37.0) g/dL RDW 17.1 H (11.5-15.5) % APTT 47.0 H (22.0-30.0) sec Sodium 135 L (137-145) mmol/L BUN 5 L (9-20) mg/dL Creatinine 0.65 L (0.66-1.25) mg/dL Glucose 114 H (74-99) mg/dL Total Protein 6.0 L (6.3-8.2) g/dL Albumin 3.4 L (3.5-5.0) g/dL
[2023-09-29] MEDS: HYDROmorphone 0.5 MG/0.5 ML SYRINGE IVP PRN (16:22)
[2023-09-30 06:19] LABS: Anisocytosis Slight; HCT 36.8 % (39.0-53.0); HGB 11.1 gm/dL (13.0-17.5); Hypochromasia Marked; MCH 22.9 pg (25.0-35.0); MCHC 30.1 g/dL (31.0-37.0); MCV 76.1 fL (80.0-100.0); Mean Platelet Volume 8.5; Microcytosis Slight; Platelet Count 233 k/uL (150-450); RBC 4.84 m/uL (4.30-5.90); RDW 16.6 % (11.5-15.5)
[2023-09-30 06:38] LABS: ALT 13 U/L (4-49); AST 18 U/L (17-59); African American GFR (CKD) >90 (>60 ml/min/1.73 sqM); Albumin 3.4 g/dL (3.5-5.0); Alkaline Phosphatase 53 U/L (38-126); Anion Gap 4 mmol/L; Blood Urea Nitrogen 6 mg/dL (9-20); Calcium 8.5 mg/dL (8.4-10.2); Carbon Dioxide 29 mmol/L (22-30); Chloride 103 mmol/L (98-107); Glucose 117 mg/dL (74-99); Non-African American GFR(CKD) >90 (>60 ml/min/1.73 sqM); Potassium 4.4 mmol/L (3.5-5.1); Sodium 136 mmol/L (137-145); Total Bilirubin 0.5 mg/dL (0.2-1.3)
--- NOTE | 2023-09-30 11:50 | P.PN ---
Subjective Progress Note Date: 09/30/23 Principal diagnosis: Pulmonary embolism. Patient is a 53-year-old white male with past medical history significant for bowel obstruction and previous sigmoidectomy with end colostomy performed 06/13/2023. Pathology was benign for malignancy, consistent with diverticulitis and abscess. Also, had a recent hospitalization in Aug, 2023 for abdominal wall cellulitis. Patient was admitted 09/26/2023 for an elective colostomy reversal. No intraoperative complications reported. Postoperatively, patient was noted to be hypoxemic and tachycardic. A D-dimer was drawn and elevated at 17. A follow-up chest CTA demonstrated multiple filling defects in the distal right and left pulmonary arteries and proximal segmental branches consistent with bilateral pulmonary emboli. No definitive evidence of right-sided heart strain. Patient does have a epidural, and we did reach out to anesthesia services. I did speak to my supervising physician, who had already spoke to Dr. Mistry, and agreed with removal of epidural and starting the patient on systemic heparin. Overall, patient is hemodynamically stable. He continues on 4 L/min nasal cannula. SpO2 is 93%. Minimally dyspneic with conversation. Heart rate is 110 bpm. Blood pressure is normotensive. CBC: WBC count 10.9, hemoglobin 11.8, hematocrit 39.4, platelets 176. Baseline coagulation profile unremarkable, APTT 25.8. BMP: Sodium 128, potassium 4.7, chloride 99, serum bicarb 19, BUN 13, creatinine 0.83, glucose 155. Patient is currently lying flat in bed. He denies any significant complaints. Denies shortness of breath or chest pain. Denies any personal or familial history of thromboembolic disease. Denies unilateral lower extremity swelling. The nurses already removed his epidural catheter. No drainage or hematoma. Postsurgical abdominal incision dressed with wound VAC. Very minimal serosanguineous output in canister. Patient is going to be transferred to the selective care unit for closer monitoring. Progress note dated September 29, 2023. 53-year-old male with a history of bowel obstruction, with previous sigmoidectomy, with end colostomy, which was performed in June of this year. Pathology was consistent with diverticulitis, and abscess. The patient was readmitted to the hospital, and had a reversal of colostomy performed. He developed postoperative shortness of breath, was found to have pulmonary embolism. The CT angiogram, did not reveal a right heart strain, but apparently the echocardiogram did. The patient did go for a suction thrombectomy, with Dr. Poe today. The patient was on IV heparin, and 2 L by nasal cannula. Saturations were 95%. Current labs include a white count 7.3, hemoglobin 10.6, hematocrit 35.1, and a normal platelet count. PTT was 47. Sodium 135, potassium 4.3, chlorides 104, CO2 28, BUN 5, creatinine 0.65. Troponins were 0.304 and 0.209. Progress note dated September 30, 2023. 53-year-old male status post bowel obstruction with previous sigmoidectomy and end colostomy. That procedure took place in June of this year. Pathology at that time was consistent with diverticulitis and abscess. There was no malignancy. The patient was readmitted to the hospital and had reversal of colostomy performed. Subsequent to that, the patient developed shortness of breath, was discovered to have a pulmonary embolism. The CTA did not suggest ri ght heart strain, but the echocardiogram did. For that reason, the patient went to the catheterization laboratory and had suction thrombectomy, done by Dr. Poe. Currently, the patient is resting comfortably in room 355. He is on 2 L of oxygen. He is receiving IV heparin. He is getting dextrose with half-normal saline with 20 mill equivalents of potassium at 125 cc an hour. He has no specific complaints. He denies any shortness of breath, or chest pain. Current labs include a white count 7, hemoglobin 11.1, hematocrit 36.8, platelet count 233,000. Sodium 136, potassium 4.4, chlorides 103, CO2 29, BUN 6, creatinine 0.7. Glucose is 117. Total protein is 6. Albumin is 3.4. Objective - Vital Signs Vital signs: Vital Signs Temp 97.6 F 09/30/23 02:00 Pulse 68 09/30/23 02:00 Resp 18 09/30/23 02:00 BP 122/77 09/30/23 02:00 Pulse Ox 97 09/30/23 02:00 FiO2 Intake & Output 09/29/23 09/30/23 09/30/23 18:59 06:59 18:59 Intake Total 1732.045 260 180 Output Total 900 1500 1200 Balance 832.045 -1240 -1020 Weight 113 kg Intake: IV 10 10 Invasive Line 1 10 10 Intake, IV Titration 1722.045 250 Amount D5-0.45% NaCl with KCl 1500 20Meq/l 1,000 ml @ 125 mls/hr IV .Q8H [facility] Rx#: [id number] Heparin Sod,Pork in 0.45% 222.045 250 NaCl 25,000 unit In 0.45 % NaCl 1 250ml.bag @ 18 UNITS/KG/HR 20.34 mls/hr IV .[id number] [facility] Rx#: [id number] Oral 0 180 Output: Urine 900 1500 1200 Uretheral (Poe) 900 Other: Voiding Method Indwelling Catheter Indwelling Catheter - Exam No acute distress, oriented 3. 2 L saturation is 98 %. HEENT examination is grossly unremarkable. Mucous membranes are moist. No oral lesions. Neck supple. Full range of motion. No adenopathy thyromegaly or neck vein di stention. Cardiovascular examination reveals regular rhythm rate. S1-S2 normal. No S3 or S4. No discernible murmur noted. Heart rate 68 bpm. Lungs reveal clear breath sounds. Breath sounds are equal bilaterally. No adventitious lung sounds including wheezes rhonchi or crackles. Abdomen soft bowel sounds are heard. No masses or tenderness. Extremities are intact. No cyanosis clubbing or edema. Skin is without rash or lesion. Neurologic examination is brief but nonfocal. - Labs CBC & Chem 7: 09/30/23 05:47 09/30/23 05:47 Labs: Abnormal Lab Results - Last 24 Hours (Table) 09/29/23 09/30/23 09/30/23 Range/Units 20:01 05:47 05:47 Hgb 11.1 L (13.0-17.5) gm/dL Hct 36.8 L (39.0-53.0) % MCV 76.1 L (80.0-100.0) fL MCH 22.9 L (25.0-35.0) pg MCHC 30.1 L (31.0-37.0) g/dL RDW 16.6 H (11.5-15.5) % APTT 44.2 H (22.0-30.0) sec Sodium 136 L (137-145) mmol/L BUN 6 L (9-20) mg/dL Glucose 117 H (74-99) mg/dL Total Protein 6.0 L (6.3-8.2) g/dL Albumin 3.4 L (3.5-5.0) g/dL Assessment and Plan Assessment: Bilateral segmental and subsegmental pulmonary emboli, no CT evidence of right- sided heart strain, significant strain noted on echocardiogram. S/P suction thrombectomy (Inari), September 29, 2023. Acute hypoxemic respiratory failure, currently on 2 L/min nasal cannula. Postoperative day #4 following colostomy reversal. History of sigmoidectomy, secondary to diverticulitis with abscess, performed on 06/13/2023. History of abdominal wall cellulitis. History of hypertension. Morbid obesity, with a BMI of 41.5 kg/m. Plan: Plan dated September 29, 2023. The patient went for suction thrombectomy today, with Dr. Poe. The patient's initial CT angiogram, did not reveal any right heart strain, but severe strain was seen on the echocardiogram. The patient is on 2 L of oxygen. Vital signs are stable. The patient denies any significant shortness of breath, chest pain, chest discomfort, etc. We will continue to follow make recommendations along the way. Prognosis is guarded. No additional recommendations are made at this time. Labs, x-rays, and medications have been reviewed. Plan dated September 30, 2023. The patient is seen in room 355. He continues on oxygen at 2 L. IV heparin is being administered via weight-based protocol. In addition, the patient is getting dextrose with half-normal saline and 20 mg of potassium at 125 cc an hour. Labs, x-rays, and medications are reviewed. We will continue to follow the patient, and make recommendations along the way. Prognosis is certainly guarded. Time with Patient: Less than 30
--- NOTE | 2023-09-30 13:01 | P.PN ---
Subjective Progress Note Date: 09/30/23 53-year-old male with a history of bowel obstruction, with previous sigmoidectomy, with end colostomy, which was performed in June of this year. Pathology was consistent with diverticulitis, and abscess. The patient was readmitted to the hospital, and had a reversal of colostomy performed. He developed postoperative shortness of breath, was found to have pulmonary embolism. The CT angiogram, did not reveal a right heart strain, but apparently the echocardiogram did. The patient did go for a suction thrombectomy, with Dr. Poe 09/29. Patient seen and examined. Denies any abdominal pain. Still has not had a bowel movement or passing gas. REVIEW OF SYSTEMS: CONSTITUTIONAL: No fever, no malaise,. CARDIOVASCULAR: No chest pain, no palpitations, no syncope. PULMONARY: No shortness of breath, no cough, GASTROINTESTINAL: As mentioned above NEUROLOGICAL: No headaches, no weakness, PHYSICAL EXAMINATION: GENERAL: The patient is alert and oriented x3, not in any acute distress. Well d eveloped, well nourished. HEENT: Pupils are round and equally reacting to light. EOMI. No scleral icterus. No conjunctival pallor. Normocephalic, atraumatic. No pharyngeal erythema. No thyromegaly. CARDIOVASCULAR: S1 and S2 present. No murmurs, rubs, or gallops. PULMONARY: Chest is clear to auscultation, no wheezing or crackles. ABDOMEN: Distended, abdominal wall incision seen, drain in place MUSCULOSKELETAL: No joint swelling or deformity. EXTREMITIES: No cyanosis, clubbing, or pedal edema. NEUROLOGICAL: Gross neurological examination did not reveal any focal deficits. SKIN: No rashes. Assessment and plan Bilateral segmental and subsegmental pulmonary emboli, no CT evidence of right- sided heart strain, significant strain noted on echocardiogram. S/P suction thrombectomy (Inari), September 29, 2023. Acute hypoxemic respiratory failure, currently on 2 L/min nasal cannula. status post colostomy reversal. History of sigmoidectomy, secondary to diverticulitis with abscess, performed on 06/13/2023. History of abdominal wall cellulitis. History of hypertension. Morbid obesity, with a BMI of 41.5 kg/m. Monitor vital signs Monitor CBC Monitor CMP Continue IV fluids continue pharmacy to dose heparin Continue antiemetics Currently on full liquid diet per Pulmonology following VASc surgery following General surgery following Labs and medication were reviewed.. Continue same treatment. Continue with symptomatic treatment. Resume home medication. Monitor labs and vitals. DVT and GI prophylaxis. Further recommendations as per clinical course of the patient Dictation was produced using [employer] dictation software. please excuse any grammatical, word or spelling errors. Objective - Vital Signs Vital signs: Vital Signs Temp 97.6 F 09/30/23 02:00 Pulse 68 09/30/23 02:00 Resp 18 09/30/23 02:00 BP 122/77 09/30/23 02:00 Pulse Ox 97 09/30/23 02:00 FiO2 Intake & Output 09/29/23 09/30/23 09/30/23 18:59 06:59 18:59 Intake Total 1732.045 260 391.875 Output Total 900 1500 1200 Balance 832.045 -1240 -808.125 Weight 113 kg Intake: IV 10 10 Invasive Line 1 10 10 Intake, IV Titration 1722.045 250 211.875 Amount D5-0.45% NaCl with KCl 1500 20Meq/l 1,000 ml @ 125 mls/hr IV .Q8H [facility] Rx#: [id number] Heparin Sod,Pork in 0.45% 222.045 250 211.875 NaCl 25,000 unit In 0.45 % NaCl 1 250ml.bag @ 18 UNITS/KG/HR 20.34 mls/hr IV .[id number] [facility] Rx#: [id number] Oral 0 180 Output: Urine 900 1500 1200 Uretheral (Poe) 900 Other: Voiding Method Indwelling Catheter Indwelling Catheter - Labs CBC & Chem 7: 09/30/23 05:47 09/30/23 05:47 Labs: Abnormal Lab Results - Last 24 Hours (Table) 09/29/23 09/30/23 09/30/23 Range/Units 20:01 05:47 05:47 Hgb 11.1 L (13.0-17.5) gm/dL Hct 36.8 L (39.0-53.0) % MCV 76.1 L (80.0-100.0) fL MCH 22.9 L (25.0-35.0) pg MCHC 30.1 L (31.0-37.0) g/dL RDW 16.6 H (11.5-15.5) % APTT 44.2 H (22.0-30.0) sec Sodium 136 L (137-145) mmol/L BUN 6 L (9-20) mg/dL Glucose 117 H (74-99) mg/dL Total Protein 6.0 L (6.3-8.2) g/dL Albumin 3.4 L (3.5-5.0) g/dL
--- NOTE | 2023-09-30 13:58 | P.PN ---
Subjective Progress Note Date: 09/30/23 This is a pleasant 53-year-old with past medical history significant for hypertension, diverticulosis with prior colostomy placement 06/2023 and recent PE. 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 He does have family history of father with HI at the age of 51. Patient presented for elective colo stomy reversal 09/25 which was uneventful. Postoperatively patient had hypoxemia and tachycardia and therefore workup performed with elevated d-dimer and eventually CT PE protocol showing bilateral PE. Patient additionally had elevated troponin of 0.3. He had an epidural at that time and this was pulled and then placed on heparin. Cardiology consult that for elevated troponin and PE. He does still have a wound VAC in place on his abdomen. Admits to some abdominal pain. Denies any actual chest pain or pressure. His main presentation after surgery was more shortness of breath. He does not smoke, quit alcohol a few months ago, family history of CAD in his father beginning at the age of 51. He has never had a stress test before or heart catheterization. EKG showed sinus tachycardia at 110 bpm, no significant ST or T wave abnormalities. 09/28 Patient seen and examined. Patient had echo which showed severely dilated right ventricle and elevated RVSP and therefore consult for PE management with vascular surgery as they are on-call for PERT team. He therefore underwent Inari thrombectomy from a femoral approach with some improvement in his saturations. He states overall he feels mildly better. Denies any chest pain or pressure. He does have some heartburn, GERD sensation likely from lying flat in bed. 09/29 He is feeling okay. Shortness of breath is stable. He is having abdominal pain. Denies any chest pain or pressure. Hemoglobin stable 11.1. PHYSICAL EXAMINATION Vital signs reviewed. CONSTITUTIONAL: No apparent distress. HEENT: Head is normocephalic. Pupils are equal, round. Sclerae anicteric. Mucous membranes of the mouth are moist. No JVD. No carotid bruit. CHEST EXAMINATION: Lungs are clear to auscultation. No chest wall tenderness is noted on palpation or with deep breathing. HEART EXAMINATION: Regular rate and rhythm. S1, S2 heard. No murmurs, gallops or rub. ABDOMEN: Soft, nontender. Positive bowel sounds. EXTREMITIES: 2+ peripheral pulses, no lower extremity edema and no calf tenderness. NEUROLOGIC EXAMINATION: Patient is awake, alert and oriented x3. ASSESSMENT Submassive PE bilaterally, s/p Inari thrombectomy Non-STEMI type 2 likely related to PE Hypertension Status post colostomy reversal 09/25 Family history of CAD PLAN Continue the anticoagulation. Plan for outpt stress testing in office. Will plan to repeat echo in a couple months and outpatient. Cardiology to sign off, follow up in clinic in 1-2 weeks. Call with any questions. Patient seen and examined in rounds with Dr. Syed, plan of care agreed upon. Objective - Vital Signs Vital signs: Vital Signs Temp 97.6 F 09/30/23 02:00 Pulse 68 09/30/23 02:00 Resp 18 09/30/23 02:00 BP 122/77 09/30/23 02:00 Pulse Ox 97 09/30/23 02:00 FiO2 Intake & Output 09/29/23 09/30/23 09/30/23 18:59 06:59 18:59 Intake Total 1732.045 260 180 Output Total 900 1500 1200 Balance 832.045 -1240 -1020 Weight 113 kg Intake: IV 10 10 Invasive Line 1 10 10 Intake, IV Titration 1722.045 250 Amount D5-0.45% NaCl with KCl 1500 20Meq/l 1,000 ml @ 125 mls/hr IV .Q8H [facility] Rx#: [id number] Heparin Sod,Pork in 0.45% 222.045 250 NaCl 25,000 unit In 0.45 % NaCl 1 250ml.bag @ 18 UNITS/KG/HR 20.34 mls/hr IV .[id number] [facility] Rx#: [id number] Oral 0 180 Output: Urine 900 1500 1200 Uretheral (Poe) 900 Other: Voiding Method Indwelling Catheter Indwelling Catheter - Labs CBC & Chem 7: 09/30/23 05:47 09/30/23 05:47 Labs: Abnormal Lab Results - Last 24 Hours (Table) 09/29/23 09/30/23 09/30/23 Range/Units 20:01 05:47 05:47 Hgb 11.1 L (13.0-17.5) gm/dL Hct 36.8 L (39.0-53.0) % MCV 76.1 L (80.0-100.0) fL MCH 22.9 L (25.0-35.0) pg MCHC 30.1 L (31.0-37.0) g/dL RDW 16.6 H (11.5-15.5) % APTT 44.2 H (22.0-30.0) sec Sodium 136 L (137-145) mmol/L BUN 6 L (9-20) mg/dL Glucose 117 H (74-99) mg/dL Total Protein 6.0 L (6.3-8.2) g/dL Albumin 3.4 L (3.5-5.0) g/dL
--- NOTE | 2023-09-30 21:05 | P.PN ---
Subjective Patient seen and evaluated at bedside. Patient still has abd pain, denies nausea but admits to belching, no bowel movement. gen: nad cv: rrr pul: non labored breathing abd: soft, distended, mild tenderness to palpation, no guarding or rebound tend erness, surgical site c/d/i Objective - Vital Signs Vital signs: Vital Signs Temp 98.6 F 09/30/23 19:53 Pulse 74 09/30/23 19:53 Resp 16 09/30/23 19:53 BP 138/82 09/30/23 19:53 Pulse Ox 97 09/30/23 19:53 FiO2 Intake & Output 09/30/23 09/30/23 10/01/23 06:59 18:59 06:59 Intake Total 260 391.875 Output Total 1500 2000 Balance -1240 -1608.125 Intake: IV 10 Invasive Line 1 10 Intake, IV Titration 250 211.875 Amount Heparin Sod,Pork in 0.45% 250 211.875 NaCl 25,000 unit In 0.45 % NaCl 1 250ml.bag @ 18 UNITS/KG/HR 20.34 mls/hr IV .[id number] [facility] Rx#: [id number] Oral 180 Output: Urine 1500 2000 Other: Voiding Method Indwelling Catheter Indwelling Catheter Indwelling Catheter - Labs CBC & Chem 7: 09/30/23 05:47 09/30/23 05:47 Labs: Abnormal Lab Results - Last 24 Hours (Table) 09/30/23 09/30/23 Range/Units 05:47 05:47 Hgb 11.1 L (13.0-17.5) gm/dL Hct 36.8 L (39.0-53.0) % MCV 76.1 L (80.0-100.0) fL MCH 22.9 L (25.0-35.0) pg MCHC 30.1 L (31.0-37.0) g/dL RDW 16.6 H (11.5-15.5) % Sodium 136 L (137-145) mmol/L BUN 6 L (9-20) mg/dL Glucose 117 H (74-99) mg/dL Total Protein 6.0 L (6.3-8.2) g/dL Albumin 3.4 L (3.5-5.0) g/dL Assessment and Plan Assessment: 53 yo male s/p colostomy reversal -continue npo -monitor for bowel function -encourage ambulation and incentive spirometer use Time with Patient: Less than 30
[2023-10-01] MEDS: CITALOPRAM HYDROBROMIDE 20 MG TAB PO SCH (09:26)
[2023-10-01] MEDS: ALPRAZolam 0.5 MG TAB PO STA (09:26)
--- NOTE | 2023-10-01 09:46 | P.PN ---
Subjective Progress Note Date: 10/01/23 Principal diagnosis: Pulmonary embolism. Patient is a 53-year-old white male with past medical history significant for bowel obstruction and previous sigmoidectomy with end colostomy performed 06/13/2023. Pathology was benign for malignancy, consistent with diverticulitis and abscess. Also, had a recent hospitalization in Aug, 2023 for abdominal wall cellulitis. Patient was admitted 09/26/2023 for an elective colostomy reversal. No intraoperative complications reported. Postoperatively, patient was noted to be hypoxemic and tachycardic. A D-dimer was drawn and elevated at 17. A follow-up chest CTA demonstrated multiple filling defects in the distal right and left pulmonary arteries and proximal segmental branches consistent with bilateral pulmonary emboli. No definitive evidence of right-sided heart strain. Patient does have a epidural, and we did reach out to anesthesia services. I did speak to my supervising physician, who had already spoke to Dr. Mistry, and agreed with removal of epidural and starting the patient on systemic heparin. Overall, patient is hemodynamically stable. He continues on 4 L/min nasal cannula. SpO2 is 93%. Minimally dyspneic with conversation. Heart rate is 110 bpm. Blood pressure is normotensive. CBC: WBC count 10.9, hemoglobin 11.8, hematocrit 39.4, platelets 176. Baseline coagulation profile unremarkable, APTT 25.8. BMP: Sodium 128, potassium 4.7, chloride 99, serum bicarb 19, BUN 13, creatinine 0.83, glucose 155. Patient is currently lying flat in bed. He denies any significant complaints. Denies shortness of breath or chest pain. Denies any personal or familial history of thromboembolic disease. Denies unilateral lower extremity swelling. The nurses already removed his epidural catheter. No drainage or hematoma. Postsurgical abdominal incision dressed with wound VAC. Very minimal serosanguineous output in canister. Patient is going to be transferred to the selective care unit for closer monitoring. Progress note dated September 29, 2023. 53-year-old male with a history of bowel obstruction, with previous sigmoidectomy, with end colostomy, which was performed in June of this year. Pathology was consistent with diverticulitis, and abscess. The patient was readmitted to the hospital, and had a reversal of colostomy performed. He developed postoperative shortness of breath, was found to have pulmonary embolism. The CT angiogram, did not reveal a right heart strain, but apparently the echocardiogram did. The patient did go for a suction thrombectomy, with Dr. Poe today. The patient was on IV heparin, and 2 L by nasal cannula. Saturations were 95%. Current labs include a white count 7.3, hemoglobin 10.6, hematocrit 35.1, and a normal platelet count. PTT was 47. Sodium 135, potassium 4.3, chlorides 104, CO2 28, BUN 5, creatinine 0.65. Troponins were 0.304 and 0.209. Progress note dated September 30, 2023. 53-year-old male status post bowel obstruction with previous sigmoidectomy and end colostomy. That procedure took place in June of this year. Pathology at that time was consistent with diverticulitis and abscess. There was no malignancy. The patient was readmitted to the hospital and had reversal of colostomy performed. Subsequent to that, the patient developed shortness of breath, was discovered to have a pulmonary embolism. The CTA did not suggest ri ght heart strain, but the echocardiogram did. For that reason, the patient went to the catheterization laboratory and had suction thrombectomy, done by Dr. Poe. Currently, the patient is resting comfortably in room 355. He is on 2 L of oxygen. He is receiving IV heparin. He is getting dextrose with half-normal saline with 20 mill equivalents of potassium at 125 cc an hour. He has no specific complaints. He denies any shortness of breath, or chest pain. Current labs include a white count 7, hemoglobin 11.1, hematocrit 36.8, platelet count 233,000. Sodium 136, potassium 4.4, chlorides 103, CO2 29, BUN 6, creatinine 0.7. Glucose is 117. Total protein is 6. Albumin is 3.4. Progress note dated October 01, 2023. The patient is seen today in room 355. Clinically, he is feeling much improved. He is getting IV heparin, and D5 with half-normal saline and 20 mill equivalents of potassium, at 125 cc an hour. He is currently on room air. He denies any chest pain or difficulty breathing. Current labs include a white count 7, hemoglobin 11.1, hematocrit 36.8, platelet count 233,000. Sodium 136, potassium 4.4, chlorides 103, CO2 29, BUN 6, creatinine 0.7. Albumin is 3.4. Objective - Vital Signs Vital signs: Vital Signs Temp 98.9 F 10/01/23 00:05 Pulse 79 10/01/23 00:05 Resp 16 10/01/23 00:05 BP 136/81 10/01/23 00:05 Pulse Ox 92 L 10/01/23 00:05 FiO2 Intake & Output 09/30/23 10/01/23 10/01/23 18:59 06:59 18:59 Intake Total 391.875 226.113 Output Total 1999 2500 350 Balance -1608.125 -2273.887 -350 Intake: Intake, IV Titration 211.875 226.113 Amount Heparin Sod,Pork in 0.45% 211.875 226.113 NaCl 25,000 unit In 0.45 % NaCl 1 250ml.bag @ 18 UNITS/KG/HR 20.34 mls/hr IV .[id number] [facility] Rx#: [id number] Oral 180 Output: Urine 1999 2500 350 Other: Voiding Method Indwelling Catheter Indwelling Catheter - Exam No acute distress, oriented 3. Room air saturation is 92%. HEENT examination is grossly unremarkable. Mucous membranes are moist. No oral lesions. Neck supple. Full range of motion. No adenopathy thyromegaly or neck vein distention. Cardiovascular examination reveals regular rhythm rate. S1-S2 normal. No S3 or S4. No discernible murmur noted. Heart rate 79 bpm. Lungs reveal clear breath sounds. Breath sounds are equal bilaterally. No adventitious lung sounds including wheezes rhonchi or crackles. Abdomen soft bowel sounds are heard. No masses or tenderness. Extremities are intact. No cyanosis clubbing or edema. Skin is without rash or lesion. Neurologic examination is brief but nonfocal. - Labs CBC & Chem 7: 09/30/23 05:47 09/30/23 05:47 Assessment and Plan Assessment: Bilateral segmental and subsegmental pulmonary emboli, no CT evidence of right- sided heart strain, significant strain noted on echocardiogram. S/P suction thrombectomy ([facility]), September 29, 2023. Acute hypoxemic respiratory failure, currently on 2 L/min nasal cannula. Postoperative day #5 following colostomy reversal. History of sigmoidectomy, secondary to diverticulitis with abscess, performed on 06/13/2023. History of abdominal wall cellulitis. History of hypertension. Morbid obesity, with a BMI of 41.5 kg/m. Plan: Plan dated September 29, 2023. The patient went for suction thrombectomy today, with Dr. Poe. The patient's initial CT angiogram, did not reveal any right heart strain, but severe strain was seen on the echocardiogram. The patient is on 2 L of oxygen. Vital signs are stable. The patient denies any significant shortness of breath, chest pain, chest discomfort, etc. We will continue to follow make recommendations along the way. Prognosis is guarded. No additional recommendations are made at this time. Labs, x-rays, and medications have been reviewed. Plan dated September 30, 2023. The patient is seen in room 355. He continues on oxygen at 2 L. IV heparin is being administered via weight-based protocol. In addition, the patient is getting dextrose with half-normal saline and 20 mg of potassium at 125 cc an hour. Labs, x-rays, and medications are reviewed. We will continue to follow the patient, and make recommendations along the way. Prognosis is certainly guarded. Plan dated October 01, 2023. The patient is seen today in room 355. He has been weaned down to room air. He is receiving IV heparin. He is getting dextrose with half-normal saline, with 20 mill equivalents of potassium, at 125 cc an hour. The fluid will be turned down to 50 cc an hour. Labs, x-rays, and all medications are reviewed. Again the patient is asymptomatic, and denies any chest pain or pressure, shortness of breath, cough, wheezing, or chest tightness. We will continue to follow the patient, make recommendations along the way. Prognosis is guarded. Time with Patient: Less than 30
--- NOTE | 2023-10-01 13:35 | P.PN ---
Subjective Progress Note Date: 10/01/23 53-year-old male with a history of bowel obstruction, with previous sigmoidectomy, with end colostomy, which was performed in June of this year. Pathology was consistent with diverticulitis, and abscess. The patient was readmitted to the hospital, and had a reversal of colostomy performed. He developed postoperative shortness of breath, was found to have pulmonary embolism. The CT angiogram, did not reveal a right heart strain, but apparently the echocardiogram did. The patient did go for a suction thrombectomy, with Dr. Poe 09/29. Patient seen and examined. Denies any abdominal pain. Still has not had a bowel movement or passing gas. 09/30. Patient seen and examined. Still complaining abdominal distention, not passing any gas. Ordered acute abdominal series REVIEW OF SYSTEMS: CONSTITUTIONAL: No fever, no malaise,. CARDIOVASCULAR: No chest pain, no palpitations, no syncope. PULMONARY: No shortness of breath, no cough, GASTROINTESTINAL: As mentioned above NEUROLOGICAL: No headaches, no weakness, PHYSICAL EXAMINATION: GENERAL: The patient is alert and oriented x3, not in any acute distress. Well developed, well nourished. HEENT: Pupils are round and equally reacting to light. EOMI. No scleral icterus. No conjunctival pallor. Normocephalic, atraumatic. No pharyngeal erythema. No thyromegaly. CARDIOVASCULAR: S1 and S2 present. No murmurs, rubs, or gallops. PULMONARY: Chest is clear to auscultation, no wheezing or crackles. ABDOMEN: Distended, abdominal wall incision seen, drain in place, bowel sounds not audible MUSCULOSKELETAL: No joint swelling or deformity. EXTREMITIES: No cyanosis, clubbing, or pedal edema. NEUROLOGICAL: Gross neurological examination did not reveal any focal deficits. SKIN: No rashes. Assessment and plan Bilateral segmental and subsegmental pulmonary emboli, no CT evidence of right- sided heart strain, significant strain noted on echocardiogram. S/P suction thrombectomy ([facility]), September 29, 2023. Acute hypoxemic respiratory failure, currently on 2 L/min nasal cannula. status post colostomy reversal. History of sigmoidectomy, secondary to diverticulitis with abscess, performed on 06/13/2023. History of abdominal wall cellulitis. History of hypertension. Morbid obesity, with a BMI of 41.5 kg/m. Monitor vital signs Monitor CBC Monitor CMP Continue IV fluids continue pharmacy to dose heparin Continue antiemetics Acute abdominal series ordered Currently on full liquid diet, advance per surgery Pulmonology following VASc surgery following General surgery following Labs and medication were reviewed.. Continue same treatment. Continue with symptomatic treatment. Resume home medication. Monitor labs and vitals. DVT and GI prophylaxis. Further recommendations as per clinical course of the patient Dictation was produced using [employer] dictation software. please excuse any grammatical, word or spelling errors. Objective - Vital Signs Vital signs: Vital Signs Temp 98.9 F 10/01/23 00:05 Pulse 79 10/01/23 00:05 Resp 16 10/01/23 00:05 BP 136/81 10/01/23 00:05 Pulse Ox 92 L 10/01/23 00:05 FiO2 Intake & Output 09/30/23 10/01/23 10/01/23 18:59 06:59 18:59 Intake Total 391.875 226.113 Output Total 1999 2500 350 Balance -1608.125 -2273.887 -350 Intake: Intake, IV Titration 211.875 226.113 Amount Heparin Sod,Pork in 0.45% 211.875 226.113 NaCl 25,000 unit In 0.45 % NaCl 1 250ml.bag @ 18 UNITS/KG/HR 20.34 mls/hr IV .[id number] [facility] Rx#: [id number] Oral 180 Output: Urine 1999 2500 350 Other: Voiding Method Indwelling Catheter Indwelling Catheter - Labs CBC & Chem 7: 09/30/23 05:47 09/30/23 05:47
--- NOTE | 2023-10-01 13:57 | P.PN ---
Subjective Progress Note Date: 10/01/23 Principal diagnosis: Colostomy reversal Patient complaining of bloating today. Mild discomfort. Abdominal flatplate shows significant colonic ileus present. White blood cell count yesterday 7, hemoglobin 11.1. Patient mildly tachycardic. No flatus or bowel movement. On clear liquids. Some nausea. Objective - Vital Signs Vital signs: Vital Signs Temp 98.5 F 10/01/23 08:50 Pulse 90 10/01/23 11:55 Resp 16 10/01/23 11:55 BP 123/75 10/01/23 11:55 Pulse Ox 90 L 10/01/23 11:55 FiO2 Intake & Output 09/30/23 10/01/23 10/01/23 18:59 06:59 18:59 Intake Total 391.875 226.113 Output Total 1999 2500 350 Balance -1608.125 -2273.887 -350 Intake: Intake, IV Titration 211.875 226.113 Amount Heparin Sod,Pork in 0.45% 211.875 226.113 NaCl 25,000 unit In 0.45 % NaCl 1 250ml.bag @ 18 UNITS/KG/HR 20.34 mls/hr IV .[id number] [facility] Rx#: [id number] Oral 180 Output: Urine 1999 2500 350 Other: Voiding Method Indwelling Catheter Indwelling Catheter - Exam Abdomen: Soft, mild to moderate distention, mild tenderness, dressing clean and dry - Labs CBC & Chem 7: 09/30/23 05:47 09/30/23 05:47 Assessment and Plan (1) History of colostomy reversal Narrative/Plan: Patient with colonic ileus. Switch to NPO. Ambulate. Recheck labs tomorrow. Current Visit: Yes Status: Acute Code(s): Z98.890 - OTHER SPECIFIED POSTPROCEDURAL STATES SNOMED Code(s): 74498022174306965
--- NOTE | 2023-10-02 07:17 | XR ---
EXAMINATION TYPE: XR abdomen acute w cxr DATE OF EXAM: 10/01/2023 11:27 AM CLINICAL INDICATION:Male, 53 years old with history of post surgical pain; H COMPARISON: Chest x-ray 08/03/2023 TECHNIQUE: Two radiographic views of the abdomen (upright and supine) and a frontal chest radiograph were obtained. FINDINGS CHEST: The lung volumes are low with crowding of the markings and mild bibasilar atelectasis. No consolidati on, effusion, or pneumothorax. Heart size upper normal. Partially seen ACDF hardware. Mild degenerative changes of the shoulders and spine. No acute bony abn ormality is suggested. FINDINGS ABDOMEN: There are craniocaudal oriented joseph seen, consistent with recent surgery. No free air is detected . There is moderate gaseous distention of the colon with a couple of air-fluid levels on upright view . Relative lack of gas seen distally. No abrupt transition is seen. There seems to be some scattered gas in small bowel without significant distention seen. No unusual calcifications can be identified. No acute osseous finding. IMPRESSION: 1. Low lung volumes, without evidence of an acute process in the chest. 2. Colonic findings most suggestive of ileus. If concern for obstruction, follow-up radiographs and/ or CT may be obtained. 3. No evidence of free air.
[2023-10-02 07:25] LABS: African American GFR (CKD) >90 (>60 ml/min/1.73 sqM); Anion Gap 8 mmol/L; Blood Urea Nitrogen 9 mg/dL (9-20); Calcium 8.6 mg/dL (8.4-10.2); Carbon Dioxide 25 mmol/L (22-30); Chloride 101 mmol/L (98-107); Glucose 118 mg/dL (74-99); Magnesium 1.9 mg/dL (1.6-2.3); Non-African American GFR(CKD) >90 (>60 ml/min/1.73 sqM); Phosphorus 3.6 mg/dL (2.5-4.5); Potassium 4.3 mmol/L (3.5-5.1); Sodium 134 mmol/L (137-145)
[2023-10-02 07:58] LABS: Anisocytosis Slight; HCT 40.2 % (39.0-53.0); HGB 12.4 gm/dL (13.0-17.5); Hypochromasia Slight; MCH 22.8 pg (25.0-35.0); MCV 73.6 fL (80.0-100.0); Microcytosis Moderate; Platelet Count 235 k/uL (150-450); RBC 5.46 m/uL (4.30-5.90); RDW 16.9 % (11.5-15.5); WBC 9.9 k/uL (3.8-10.6)
--- NOTE | 2023-10-02 08:40 | P.PN ---
Subjective Progress Note Date: 10/02/23 This is a 53-year-old male who was admitted for colostomy reversal. He is postop day #2. Patient was doing well however last night developed some hypoxia along with some shortness of breath and workup identified pulmonary embolisms. He remains on IV heparin. Echo has been ordered. Vitals are stable. 10/02/2023 Patient seen and evaluated laying in bed this morning. Patient is very anxious, wanting to go home. He is currently NPO. Patient does report he had multiple bowel movements last night. He remains on a heparin drip. Objective - Vital Signs Vital signs: Vital Signs Temp 98.1 F 10/02/23 01:09 Pulse 90 10/02/23 01:09 Resp 18 10/02/23 01:09 BP 141/79 10/02/23 01:09 Pulse Ox 94 L 10/02/23 01:09 FiO2 Intake & Output 10/01/23 10/02/23 10/02/23 18:59 06:59 18:59 Intake Total 250 850 Output Total 551 101 Balance -301 749 Intake: Intake, IV Titration 250 850 Amount D5-0.45% NaCl with KCl 600 20Meq/l 1,000 ml @ 50 mls /hr IV .Q20H [facility] Rx#: [id number] Heparin Sod,Pork in 0.45% 250 250 NaCl 25,000 unit In 0.45 % NaCl 1 250ml.bag @ 18 UNITS/KG/HR 20.34 mls/hr IV .[id number] [facility] Rx#: [id number] Output: Urine 550 100 Stool 1 1 Other: # Voids 1 3 # Bowel Movements 2 2 - Constitutional General appearance: Present: cooperative, no acute distress - EENT Eyes: Present: PERRLA - Neck Neck: Present: normal ROM. Absent: lymphadenopathy, rigidity - Respiratory Respiratory: bilateral: CTA - Cardiovascular Rhythm: regular Heart sounds: normal: S1, S2 - Gastrointestinal General gastrointestinal: Present: distended - Integumentary Integumentary: Present: normal, normal turgor - Psychiatric Psychiatric: Present: A&O x's 3 - Labs CBC & Chem 7: 10/02/23 06:03 10/02/23 06:03 Labs: Abnormal Lab Results - Last 24 Hours (Table) 07/01/24 07/01/24 Range/Units 06:03 06:03 Hgb 12.4 L (13.0-17.5) gm/dL MCV 73.6 L (80.0-100.0) fL MCH 22.8 L (25.0-35.0) pg RDW 16.9 H (11.5-15.5) % Sodium 134 L (137-145) mmol/L Glucose 118 H (74-99) mg/dL Assessment and Plan (1) History of colostomy reversal Current Visit: Yes Status: Acute Code(s): Z98.890 - OTHER SPECIFIED POSTPROCEDURAL STATES SNOMED Code(s): 77044292266978725 (2) Pulmonary embolism Current Visit: Yes Status: Acute Code(s): I26.99 - OTHER PULMONARY EMBOLISM WITHOUT ACUTE COR PULMONALE SNOMED Code(s): 03719746 (3) Moderate major depression Current Visit: Yes Status: Acute Code(s): F32.1 - MAJOR DEPRESSIVE DISORDER, SINGLE EPISODE, MODERATE SNOMED Code(s): 921430 (4) Hypertension Current Visit: No Status: Acute Code(s): I10 - ESSENTIAL (PRIMARY) HYPERTENSION SNOMED Code(s): 72147130 (5) Anxiety Current Visit: Yes Status: Acute Code(s): F41.9 - ANXIETY DISORDER, UNSPECIFIED SNOMED Code(s): 39699972 Plan: Check CBC and CMP in the morning. Will add xanax PRN for anxiety. Apprecaite multiple consultants. Patient seen and evaluated by nurse practitioner, physician in agreement with plan
[2023-10-02] MEDS: ALPRAZolam 0.5 MG TAB PO PRN (08:55)
[2023-10-02 11:38] LABS: Band Neutrophils % 2 %; Lymphocytes # (M) 1.29 k/uL (1.0-4.8); Metamyelocytes % 1 %; Monocytes # (M) 1.19 k/uL (0-1.0); Neutrophils % (M) 72 %; Nucleated Red Blood Cells 0 /100 WBC (0-0); Total Cells Counted 200
[2023-10-02] MEDS: Apixaban Initiation Dose--VTE 5 MG TAB PO SCH (14:20)
--- NOTE | 2023-10-02 14:22 | P.PN ---
Subjective Progress Note Date: 10/02/23 CHIEF COMPLAINT: Diverticulitis HISTORY OF PRESENT ILLNESS: Postop day #6 status post colostomy reversal. Patient reports that he is feeling better. He wants to be discharged. He is having bowel movements now and flatus. Abdominal distention is showing improvement. Abdominal x-ray from this morning reports colonic findings most suggestive of ileus no evidence of free air. Afebrile. WBC 9.9 Hgb 12.4 sodium is 134 potassium is 4.3 creatinine 0.7 magnesium 1.9 PHYSICAL EXAM: VITAL SIGNS: Reviewed. GENERAL: Well-developed in no acute distress. ABDOMEN: Distended. Minimal tenderness. Prevena wound VAC dressing in place NEUROLOGIC: Alert and oriented. Cranial nerves II through XII grossly intact. ASSESSMENT: 1. Diverticulitis status post colostomy reversal 2. Postop ileus can be an expected finding 3. PE status post thrombectomy with vascular surgery PLAN: -Patient is having bowel movements. Advance diet to full liquids -Discontinue IV fluids -Encourage patient to increase activity level -Pulmonary service has started patient on Eliquis Physician Blintze Roller note has been reviewed by physician. Signing provider agrees with the documented findings, assessment, and plan of care. Objective - Vital Signs Vital signs: Vital Signs Temp 98.5 F 10/02/23 08:25 Pulse 97 10/02/23 08:25 Resp 18 10/02/23 08:25 BP 127/82 10/02/23 08:25 Pulse Ox 94 L 10/02/23 08:50 FiO2 21 10/02/23 08:50 Intake & Output 10/01/23 10/02/23 10/02/23 18:59 06:59 18:59 Intake Total 250 850 240 Output Total 551 101 1 Balance -301 749 239 Intake: Intake, IV Titration 250 850 Amount D5-0.45% NaCl with KCl 600 20Meq/l 1,000 ml @ 50 mls /hr IV .Q20H [facility] Rx#: [id number] Heparin Sod,Pork in 0.45% 250 250 NaCl 25,000 unit In 0.45 % NaCl 1 250ml.bag @ 18 UNITS/KG/HR 20.34 mls/hr IV .[id number] [facility] Rx#: [id number] Oral 240 Output: Urine 550 100 Stool 1 1 1 Other: Voiding Method Indwelling Catheter # Voids 1 3 # Bowel Movements 2 2 - Labs CBC & Chem 7: 10/02/23 06:03 10/02/23 06:03 Labs: Abnormal Lab Results - Last 24 Hours (Table) 10/02/23 10/02/23 10/02/23 Range/Units 06:03 06:03 09:01 Hgb 12.4 L (13.0-17.5) gm/dL MCV 73.6 L (80.0-100.0) fL MCH 22.8 L (25.0-35.0) pg RDW 16.9 H (11.5-15.5) % Monocytes # (Manual) 1.19 H (0-1.0) k/uL Metamyelocytes # (Man) 0.10 H (0) k/uL APTT 37.7 H (22.0-30.0) sec Sodium 134 L (137-145) mmol/L Glucose 118 H (74-99) mg/dL
[2023-10-02] MEDS: IPRATROPIUM-ALBUTEROL 3 ML NEB INHALATION PRN (18:04)
--- NOTE | 2023-10-02 20:19 | P.PN ---
Subjective Progress Note Date: 10/02/23 Patient is a 53-year-old white male with past medical history significant for bowel obstruction and previous sigmoidectomy with end colostomy performed 06/13/2023. Pathology was benign for malignancy, consistent with diverticulitis and abscess. Also, had a recent hospitalization in Aug, 2023 for abdominal wall cellulitis. Patient was admitted 09/26/2023 for an elective colostomy reversal. No intraoperative complications reported. Postoperatively, patient was noted to be hypoxemic and tachycardic. A D-dimer was drawn and elevated at 17. A follow-up chest CTA demonstrated multiple filling defects in the distal right and left pulmonary arteries and proximal segmental branches consistent with bilateral pulmonary emboli. No definitive evidence of right-sided heart strain. Patient does have a epidural, and we did reach out to anesthesia services. I did speak to my supervising physician, who had already spoke to Dr. Mistry, and agreed with removal of epidural and starting the patient on systemic heparin. Overall, patient is hemodynamically stable. He continues on 4 L/min nasal cannula. SpO2 is 93%. Minimally dyspneic with conversation. Heart rate is 110 bpm. Blood pressure is normotensive. CBC: WBC count 10.9, hemoglobin 11.8, hematocrit 39.4, platelets 176. Baseline coagulation profile unremarkable, APTT 25.8. BMP: Sodium 128, potassium 4.7, chloride 99, serum bicarb 19, BUN 13, creatinine 0.83, glucose 155. Patient is currently lying flat in bed. He denies any significant complaints. Denies shortness of breath or chest pain. Denies any personal or familial history of thromboembolic disease. Denies unilateral lower extremity swelling. The nurses already removed his epidural catheter. No drainage or hematoma. Postsurgical abdominal incision dressed with wound VAC. Very minimal serosanguineous output in canister. Patient is going to be transferred to the selective care unit for closer monitoring. Progress note dated September 29, 2023. 53-year-old male with a history of bowel obstruction, with previous sigmoidectomy, with end colostomy, which was performed in June of this year. Pathology was consistent with diverticulitis, and abscess. The patient was readmitted to the hospital, and had a reversal of colostomy performed. He developed postoperative shortness of breath, was found to have pulmonary embolism. The CT angiogram, did not reveal a right heart strain, but apparently the echocardiogram did. The patient did go for a suction thrombectomy, with Dr. Poe today. The patient was on IV heparin, and 2 L by nasal cannula. Saturations were 95%. Current labs include a white count 7.3, hemoglobin 10.6, hematocrit 35.1, and a normal platelet count. PTT was 47. Sodium 135, potassium 4.3, chlorides 104, CO2 28, BUN 5, creatinine 0.65. Troponins were 0.304 and 0.209. Progress note dated September 30, 2023. 53-year-old male status post bowel obstruction with previous sigmoidectomy and end colostomy. That procedure took place in June of this year. Pathology at that time was consistent with diverticulitis and abscess. There was no malignancy. The patient was readmitted to the hospital and had reversal of colostomy performed. Subsequent to that, the patient developed shortness of breath, was discovered to have a pulmonary embolism. The CTA did not suggest right heart strain, but the echocardiogram did. For that reason, the patient went to the catheterization laboratory and had suction thrombectomy, done by Dr. Poe. Currently, the patient is resting comfortably in room 355. He is on 2 L of oxygen. He is receiving IV heparin. He is getting dextrose with half-normal saline with 20 mill equivalents of potassium at 125 cc an hour. He has no specific complaints. He denies any shortness of breath, or chest pain. Current labs include a white count 7, hemoglobin 11.1, hematocrit 36.8, platelet count 233,000. Sodium 136, potassium 4.4, chlorides 103, CO2 29, BUN 6, creatinine 0.7. Glucose is 117. Total protein is 6. Albumin is 3.4. Progress note dated October 01, 2023. The patient is seen today in room 355. Clinically, he is feeling much improved. He is getting IV heparin, and D5 with half-normal saline and 20 mill equivalents of potassium, at 125 cc an hour. He is currently on room air. He denies any chest pain or difficulty breathing. Current labs include a white count 7, hemoglobin 11.1, hematocrit 36.8, platelet count 233,000. Sodium 136, potassium 4.4, chlorides 103, CO2 29, BUN 6, creatinine 0.7. Albumin is 3.4. 10/02/2023, no specific complaints. The patient remains on IV heparin. Remains on 3 Suboxone by nasal cannula with a pulse ox of 94%. His mobility is still very limited. Abdominal wound is dry clean and intact. No significant nausea or vomiting or abdominal pain. The patient is postop day #6 following a colostomy reversal. Patient is having bowel movement activity and diet will be advanced to full. IV fluids will be discontinued. IV heparin will be also discontinued and the patient is going to be transition to long-term anticoagulation with Eliquis. White cell count is at 9.9 with a, hemoglobin 12.4 and a platelet count of 235. Sodium levels at 134, potassium is 4.3, BUN is 9 with a creatinine of 0.7. The patient has no specific complaints. Anticoagulation will be started with Eliquis. Objective - Vital Signs Vital signs: Vital Signs Temp 98.5 F 10/02/23 08:25 Pulse 97 10/02/23 08:25 Resp 18 10/02/23 08:25 BP 127/82 10/02/23 08:25 Pulse Ox 94 L 10/02/23 08:50 FiO2 21 10/02/23 08:50 Intake & Output 10/01/23 10/02/23 10/02/23 18:59 06:59 18:59 Intake Total 250 850 Output Total 551 101 1 Balance -301 749 -1 Intake: Intake, IV Titration 250 850 Amount D5-0.45% NaCl with KCl 600 20Meq/l 1,000 ml @ 50 mls /hr IV .Q20H [facility]BB[facility] Rx#: [id number] Heparin Sod,Pork in 0.45% 250 250 NaCl 25,000 unit In 0.45 % NaCl 1 250ml.bag @ 18 UNITS/KG/HR 20.34 mls/hr IV .[id number] ABB[facility] Rx#: [id number] Output: Urine 550 100 Stool 1 1 1 Other: Voiding Method Indwelling Catheter # Voids 1 3 # Bowel Movements 2 2 - Exam No acute distress, oriented 3. Room air saturation is 92%. HEENT examination is grossly unremarkable. Mucous membranes are moist. No oral lesions. Neck supple. Full range of motion. No adenopathy thyromegaly or neck vein distention. Cardiovascular examination reveals regular rhythm rate. S1-S2 normal. No S3 or S4. No discernible murmur noted. Heart rate 79 bpm. Lungs reveal clear breath sounds. Breath sounds are equal bilaterally. No adventitious lung sounds including wheezes rhonchi or crackles. Abdomen soft bowel sounds are heard. No masses or tenderness. Extremities are intact. No cyanosis clubbing or edema. Skin is without rash or lesion. Neurologic examination is brief but nonfocal. - Labs CBC & Chem 7: 10/02/23 06:03 10/02/23 06:03 Labs: Abnormal Lab Results - Last 24 Hours (Table) 10/02/23 10/02/23 10/02/23 Range/Units 06:03 06:03 09:01 Hgb 12.4 L (13.0-17.5) gm/dL MCV 73.6 L (80.0-100.0) fL MCH 22.8 L (25.0-35.0) pg RDW 16.9 H (11.5-15.5) % Monocytes # (Manual) 1.19 H (0-1.0) k/uL Metamyelocytes # (Man) 0.10 H (0) k/uL APTT 37.7 H (22.0-30.0) sec Sodium 134 L (137-145) mmol/L Glucose 118 H (74-99) mg/dL Assessment and Plan Plan: Acute bilateral segmental and subsegmental pulmonary emboli, no CT evidence of right-sided heart strain, significant strain noted on echocardiogram. The patient was treated with the patient remains on suction thrombectomy (Inari), September 29, 2023. Patient is currently on IV heparin for now. Ultrasound Doppler of the lower extremities have been negative. Echocardiogram shows a preserved ventricular ejection fraction with an ejection fraction of 6065%, severe RV enlargement and right ventricular systolic pressure estimated to be around 40 mmHg. Acute hypoxemic respiratory failure, currently on 2 L/min nasal cannula. Postoperative day # 6 following colostomy reversal. History of sigmoidectomy, secondary to diverticulitis with abscess, performed on 06/13/2023. History of abdominal wall cellulitis. History of hypertension. Morbid obesity, with a BMI of 41.5 kg/m. Plan: Will discontinue IV heparin and start the patient on anticoagulation with Eliquis per PE protocol Provide sinus parameter Increase mobility We are going to advance patient's diet as tolerated Surgical site over the anterior abdominal wall is dry clean and intact Patient is clinically stable and hemodynamically stable. Monitor electrolytes and blood work Wean down FiO2 as tolerated to maintain saturation above 90% Will continue to follow.
[2023-10-03] MEDS: PANTOPRAZOLE 40 MG/10 ML VIAL IVP SCH (08:31)
--- NOTE | 2023-10-03 08:31 | P.PN ---
Subjective Progress Note Date: 10/03/23 This is a 53-year-old male who was admitted for colostomy reversal. He is postop day #2. Patient was doing well however last night developed some hypoxia along with some shortness of breath and workup identified pulmonary embolisms. He remains on IV heparin. Echo has been ordered. Vitals are stable. 10/02/2023 Patient seen and evaluated laying in bed this morning. Patient is very anxious, wanting to go home. He is currently NPO. Patient does report he had multiple bowel movements last night. He remains on a heparin drip. 10/03/2023 Patient seen and evaluated laying in bed this morning. Patient reports nausea this morning. He did have a liquid diet for breakfast this morning and vomited it up afterwards. Patient reports he is still passing gas and has been having bowel movements. Objective - Vital Signs Vital signs: Vital Signs Temp 98.5 F 10/03/23 00:12 Pulse 92 10/03/23 00:12 Resp 18 10/03/23 00:12 BP 142/87 10/03/23 00:12 Pulse Ox 92 L 10/03/23 00:12 FiO2 21 10/02/23 08:50 Intake & Output 10/02/23 10/03/23 10/03/23 18:59 06:59 18:59 Intake Total 596 Output Total 1 Balance 595 Intake: Oral 596 Output: Stool 1 Other: Voiding Method Indwelling Catheter Toilet Urinal # Voids 1 1 # Bowel Movements 1 1 - Constitutional General appearance: Present: cooperative, no acute distress - EENT Eyes: Present: PERRLA - Neck Neck: Present: normal ROM. Absent: lymphadenopathy, rigidity - Respiratory Respiratory: bilateral: CTA - Cardiovascular Rhythm: regular Heart sounds: normal: S1, S2 - Gastrointestinal General gastrointestinal: Present: distended, soft - Integumentary Integumentary: Present: normal, normal turgor - Psychiatric Psychiatric: Present: A&O x's 3 - Labs CBC & Chem 7: 10/02/23 06:03 10/02/23 06:03 Labs: Abnormal Lab Results - Last 24 Hours (Table) 10/02/23 10/02/23 Range/Units 06:03 09:01 Monocytes # (Manual) 1.19 H (0-1.0) k/uL Metamyelocytes # (Man) 0.10 H (0) k/uL APTT 37.7 H (22.0-30.0) sec Assessment and Plan (1) History of colostomy reversal Current Visit: Yes Status: Acute Code(s): Z98.890 - OTHER SPECIFIED POSTPROCEDURAL STATES SNOMED Code(s): 59559096086295506 (2) Pulmonary embolism Current Visit: Yes Status: Acute Code(s): I26.99 - OTHER PULMONARY EMBOLISM WITHOUT ACUTE COR PULMONALE SNOMED Code(s): 31176209 (3) Moderate major depression Current Visit: Yes Status: Acute Code(s): F32.1 - MAJOR DEPRESSIVE DISORDER, SINGLE EPISODE, MODERATE SNOMED Code(s): 035610 (4) Hypertension Current Visit: No Status: Acute Code(s): I10 - ESSENTIAL (PRIMARY) HYPERTENSION SNOMED Code(s): 29500654 (5) Anxiety Current Visit: Yes Status: Acute Code(s): F41.9 - ANXIETY DISORDER, UNSPECIFIED SNOMED Code(s): 36372632 Plan: Zofran as needed Appreciate surgeons input and recommendations, countinue to follow their post-op instructions. Patient seen and evaluated by nurse practitioner, physician in agreement with plan
[2023-10-03 11:53] LABS: Anisocytosis Slight; HCT 37.6 % (39.0-53.0); HGB 11.2 gm/dL (13.0-17.5); Hypochromasia Slight; MCH 22.2 pg (25.0-35.0); MCHC 29.8 g/dL (31.0-37.0); MCV 74.7 fL (80.0-100.0); Mean Platelet Volume 8.4; Microcytosis Moderate; Platelet Count 230 k/uL (150-450); RBC 5.03 m/uL (4.30-5.90); RDW 17.2 % (11.5-15.5); WBC 9.1 k/uL (3.8-10.6)
[2023-10-03 12:04] LABS: ALT 18 U/L (4-49); African American GFR (CKD) >90 (>60 ml/min/1.73 sqM); Albumin 3.5 g/dL (3.5-5.0); Alkaline Phosphatase 63 U/L (38-126); Anion Gap 9 mmol/L; Blood Urea Nitrogen 12 mg/dL (9-20); Calcium 8.4 mg/dL (8.4-10.2); Carbon Dioxide 23 mmol/L (22-30); Chloride 101 mmol/L (98-107); Glucose 108 mg/dL (74-99); Non-African American GFR(CKD) >90 (>60 ml/min/1.73 sqM); Potassium 4.1 mmol/L (3.5-5.1); Sodium 133 mmol/L (137-145); Total Bilirubin 0.8 mg/dL (0.2-1.3); Total Protein 6.1 g/dL (6.3-8.2)
--- NOTE | 2023-10-03 12:33 | P.PN ---
Subjective Progress Note Date: 10/03/23 CHIEF COMPLAINT: Diverticulitis HISTORY OF PRESENT ILLNESS: Postop day #7 status post colostomy reversal. Patient had episode of vomiting this morning after breakfast. Does complain of abdominal distention. He was initially made n.p.o. this morning. He is having loose bowel movements. Denies any increase in pain. Patient is ambulating minimally per nursing staff. Afebrile. WBC 9.1. Patient started on Eliquis yesterday for his PE Patient seen and examined with Dr. Ziegler PHYSICAL EXAM: VITAL SIGNS: Reviewed. GENERAL: Well-developed in no acute distress. ABDOMEN: Distended. Nontender. Prevena wound VAC dressing in place NEUROLOGIC: Alert and oriented. Cranial nerves II through XII grossly intact. ASSESSMENT: 1. Diverticulitis status post colostomy reversal 2. Postop ileus can be an expected finding 3. PE status post thrombectomy with vascular surgery PLAN: -Start clear liquid diet -Encourage patient to ambulate -Consult physical therapy to help ambulate patient -Remove Prevena wound VAC. Apply Optifoam silver dressings Physician Assembler Movement note has been reviewed by physician. Signing provider agrees with the documented findings, assessment, and plan of care. Objective - Vital Signs Vital signs: Vital Signs Temp 97.8 F 10/03/23 08:22 Pulse 89 10/03/23 11:12 Resp 22 10/03/23 11:12 BP 147/83 10/03/23 11:12 Pulse Ox 97 10/03/23 11:12 FiO2 21 10/02/23 08:50 Intake & Output 10/02/23 10/03/23 10/03/23 18:59 06:59 18:59 Intake Total 596 Output Total 1 0 Balance 595 0 Intake: Oral 596 Output: Drainage 0 Medial 0 Stool 1 Other: Voiding Method Indwelling Catheter Toilet Toilet Urinal Urinal # Voids 1 1 # Bowel Movements 1 1 - Labs CBC & Chem 7: 10/03/23 10:31 10/03/23 10:31 Labs: Abnormal Lab Results - Last 24 Hours (Table) 10/03/23 10/03/23 Range/Units 10:31 10:31 Hgb 11.2 L (13.0-17.5) gm/dL Hct 37.6 L (39.0-53.0) % MCV 74.7 L (80.0-100.0) fL MCH 22.2 L (25.0-35.0) pg MCHC 29.8 L (31.0-37.0) g/dL RDW 17.2 H (11.5-15.5) % Sodium 133 L (137-145) mmol/L Glucose 108 H (74-99) mg/dL Total Protein 6.1 L (6.3-8.2) g/dL
--- NOTE | 2023-10-03 12:56 | P.PN ---
Subjective Progress Note Date: 10/03/23 Patient is a 53-year-old white male with past medical history significant for bowel obstruction and previous sigmoidectomy with end colostomy performed 06/13/2023. Pathology was benign for malignancy, consistent with diverticulitis and abscess. Also, had a recent hospitalization in Aug, 2023 for abdominal wall cellulitis. Patient was admitted 09/26/2023 for an elective colostomy reversal. No intraoperative complications reported. Postoperatively, patient was noted to be hypoxemic and tachycardic. A D-dimer was drawn and elevated at 17. A follow-up chest CTA demonstrated multiple filling defects in the distal right and left pulmonary arteries and proximal segmental branches consistent with bilateral pulmonary emboli. No definitive evidence of right-sided heart strain. Patient does have a epidural, and we did reach out to anesthesia services. I did speak to my supervising physician, who had already spoke to Dr. Mistry, and agreed with removal of epidural and starting the patient on systemic heparin. Overall, patient is hemodynamically stable. He continues on 4 L/min nasal cannula. SpO2 is 93%. Minimally dyspneic with conversation. Heart rate is 110 bpm. Blood pressure is normotensive. CBC: WBC count 10.9, hemoglobin 11.8, hematocrit 39.4, platelets 176. Baseline coagulation profile unremarkable, APTT 25.8. BMP: Sodium 128, potassium 4.7, chloride 99, serum bicarb 19, BUN 13, creatinine 0.83, glucose 155. Patient is currently lying flat in bed. He denies any significant complaints. Denies shortness of breath or chest pain. Denies any personal or familial history of thromboembolic disease. Denies unilateral lower extremity swelling. The nurses already removed his epidural catheter. No drainage or hematoma. Postsurgical abdominal incision dressed with wound VAC. Very minimal serosanguineous output in canister. Patient is going to be transferred to the selective care unit for closer monitoring. Progress note dated September 29, 2023. 53-year-old male with a history of bowel obstruction, with previous sigmoidectomy, with end colostomy, which was performed in June of this year. Pathology was consistent with diverticulitis, and abscess. The patient was readmitted to the hospital, and had a reversal of colostomy performed. He developed postoperative shortness of breath, was found to have pulmonary embolism. The CT angiogram, did not reveal a right heart strain, but apparently the echocardiogram did. The patient did go for a suction thrombectomy, with Dr. Poe today. The patient was on IV heparin, and 2 L by nasal cannula. Saturations were 95%. Current labs include a white count 7.3, hemoglobin 10.6, hematocrit 35.1, and a normal platelet count. PTT was 47. Sodium 135, potassium 4.3, chlorides 104, CO2 28, BUN 5, creatinine 0.65. Troponins were 0.304 and 0.209. Progress note dated September 30, 2023. 53-year-old male status post bowel obstruction with previous sigmoidectomy and end colostomy. That procedure took place in June of this year. Pathology at that time was consistent with diverticulitis and abscess. There was no malignancy. The patient was readmitted to the hospital and had reversal of colostomy performed. Subsequent to that, the patient developed shortness of breath, was discovered to have a pulmonary embolism. The CTA did not suggest right heart strain, but the echocardiogram did. For that reason, the patient went to the catheterization laboratory and had suction thrombectomy, done by Dr. Poe. Currently, the patient is resting comfortably in room 355. He is on 2 L of oxygen. He is receiving IV heparin. He is getting dextrose with half-normal saline with 20 mill equivalents of potassium at 125 cc an hour. He has no specific complaints. He denies any shortness of breath, or chest pain. Current labs include a white count 7, hemoglobin 11.1, hematocrit 36.8, platelet count 233,000. Sodium 136, potassium 4.4, chlorides 103, CO2 29, BUN 6, creatinine 0.7. Glucose is 117. Total protein is 6. Albumin is 3.4. Progress note dated October 01, 2023. The patient is seen today in room 355. Clinically, he is feeling much improved. He is getting IV heparin, and D5 with half-normal saline and 20 mill equivalents of potassium, at 125 cc an hour. He is currently on room air. He denies any chest pain or difficulty breathing. Current labs include a white count 7, hemoglobin 11.1, hematocrit 36.8, platelet count 233,000. Sodium 136, potassium 4.4, chlorides 103, CO2 29, BUN 6, creatinine 0.7. Albumin is 3.4. 10/02/2023, no specific complaints. The patient remains on IV heparin. Remains on 3 Suboxone by nasal cannula with a pulse ox of 94%. His mobility is still very limited. Abdominal wound is dry clean and intact. No significant nausea or vomiting or abdominal pain. The patient is postop day #6 following a colostomy reversal. Patient is having bowel movement activity and diet will be advanced to full. IV fluids will be discontinued. IV heparin will be also discontinued and the patient is going to be transition to long-term anticoagulation with Eliquis. White cell count is at 9.9 with a, hemoglobin 12.4 and a platelet count of 235. Sodium levels at 134, potassium is 4.3, BUN is 9 with a creatinine of 0.7. The patient has no specific complaints. Anticoagulation will be started with Eliquis. 10/03/2023, the patient is resting comfortably in bed.On 7 the patient did encounter some nausea and emesis. The patient may have an underlying postop ileus. He does have positive bowel sounds and he is stooling. He will be started on some clear liquid diet. I took the patient off IV heparin and the patient is currently on anticoagulation with Eliquis regarding his pulm embolism. He is on 40 of oxygen by nasal cannula with a pulse ox of 97%. The white cell count of 9.1 with a hemoglobin of 11.2 and a platelet count of 230, BUN is 12 with a creatinine of 0.7 and a sodium levels at 133. The patient is afebrile for now. Abdominal wound is dry clean and intact. No abdominal pain. No chest pain. No pleurisy or hemoptysis. No other significant events overnight. Objective - Vital Signs Vital signs: Vital Signs Temp 97.8 F 10/03/23 08:22 Pulse 91 10/03/23 08:22 Resp 24 10/03/23 08:22 BP 131/76 10/03/23 08:22 Pulse Ox 93 L 10/03/23 09:08 FiO2 21 10/02/23 08:50 Intake & Output 10/02/23 10/03/23 10/03/23 18:59 06:59 18:59 Intake Total 596 Output Total 1 0 Balance 595 0 Intake: Oral 596 Output: Drainage 0 Medial 0 Stool 1 Other: Voiding Method Indwelling Catheter Toilet Toilet Urinal Urinal # Voids 1 1 # Bowel Movements 1 1 - Exam No acute distress, oriented 3. Room air saturation is 92%.Currently on 4 L of oxygen by nasal cannula HEENT examination is grossly unremarkable. Mucous membranes are moist. No oral lesions. Neck supple. Full range of motion. No adenopathy thyromegaly or neck vein distention. Cardiovascular examination reveals regular rhythm rate. S1-S2 normal. No S3 or S4. No discernible murmur noted. Lungs reveal clear breath sounds. Breath sounds are equal bilaterally. No adventitious lung sounds including wheezes rhonchi or crackles. Abdomen soft bowel sounds are heard. No masses or tenderness. Extremities are intact. No cyanosis clubbing or edema. Skin is without rash or lesion. Neurologic examination is brief but nonfocal. - Labs CBC & Chem 7: 10/03/23 10:31 10/03/23 10:31 Labs: Abnormal Lab Results - Last 24 Hours (Table) 10/02/23 Range/Units 06:03 Monocytes # (Manual) 1.19 H (0-1.0) k/uL Metamyelocytes # (Man) 0.10 H (0) k/uL Assessment and Plan Plan: Acute bilateral segmental and subsegmental pulmonary emboli, no CT evidence of right-sided heart strain, significant strain noted on echocardiogram. The patient was treated with the patient remains on suction thrombectomy (Inari), September 29, 2023. Patient is currently on IV heparin for now. Ultrasound Doppler of the lower extremities have been negative. Echocardiogram shows a preserved ventricular ejection fraction with an ejection fraction of 6065%, severe RV enlargement and right ventricular systolic pressure estimated to be around 40 mmHg. The patient is currently on anticoagulation with Eliquis. IV heparin has been discontinued. Acute hypoxemic respiratory failure, currently on 2-4 L/min nasal cannula. Postoperative day # 7 following colostomy reversal. Suspected postoperative ileus. Positive bowel sounds. Positive stooling. History of sigmoidectomy, secondary to diverticulitis with abscess, performed on 06/13/2023. History of abdominal wall cellulitis. History of hypertension. Morbid obesity, with a BMI of 41.5 kg/m. Plan: Continue anticoagulation with Eliquis Continue incentive spirometer Increase mobility We are going to advance patient's diet as tolerated, will be started on clear liquid diet and general surgery is on the case. Surgical site over the anterior abdominal wall is dry clean and intact Patient is clinically stable and hemodynamically stable. Monitor electrolytes and blood work Wean down FiO2 as tolerated to maintain saturation above 90% Will continue to follow.
--- NOTE | 2023-10-03 16:52 | CDI ---
Documentation Clarification Form Date: 10/03/2023 01:59:54 PM From: Tiffany Katz RN Phone: [phone] Admit Date: 09/26/2023 09:13:00 AM Patient Name: Norman Mahoney Visit Number: [id number] Discharge Date: ATTENTION: The Clinical Documentation Specialists (CDI) and [facility] Coding Staff appreciate your assistance in clarifying documentation. Please respond to the clarification below the line at the bottom and electronically sign. The CDI & [facility] Coding staff will review the response and follow-up if needed. Please note: Queries are made part of the Legal Health Record. If you have any questions, please contact the author of this message via ITS. Dr. Odilon Ziegler Bilateral segmental and sub segmental pulmonary emboli is documented 09/27 Pulmonary note. For each diagnosis, documentation must be clear to determine if the condition was present at the time of the patients inpatient admission or developed during the hospital stay. Additional clarification regarding the Bilateral segmental and sub segmental pulmonary is requested. History/Risk Factors: 53-year-old male presents for elective colostomy reversal. Medical history: Diverticulitis and HTN. 09/26 Pulmonary consult. Clinical Indicators: 09/25, VSS: B/P 136/76, HR 81, Temp 97.7 F Tympanic RR 16, SpO2 97% room air 09/25 Colostomy reversal surgery 09/26, CT Chest Angio for PE: Bilateral upper and lower lobe pulmonary emboli 09/26, Venous Doppler: No ultrasound evidence for acute DVT in either lower extremity 09/27, Pulmonary consult: 06/13/2023.Pathology was benign for malignancy, consistent with diverticulitis and abscess. Also, had a recent hospitalization in Aug, 2023 for abdominal wall cellulitis. No intraoperative complications reported. Postoperatively, patient was noted to be hypoxemic and tachycardic. A D-dimer was drawn and elevated at 17.A follow-up chest CTA demonstrated multiple filling defects in the distal right and left pulmonary arteries and proximal segmental branches consistent with bilateral pulmonary emboli. Treatment 09/25 09/26 Ropivacaine Epidural discontinuedl; 09/26 10/01 Heparin IV; 10/01 Eliquis 10mg PO BID; Definition of Present on Admission (POA): A diagnosis present at the time the order for admission to inpatient status was written. Please clarify if the bilateral segmental and sub segmental pulmonary emboli was POA [ ] Y = Yes, the condition was present at the time of the order for inpatient admission. [ ] N = No, the condition was not present at the time of the order for inpatient admission. [ ] W = Clinically undetermined if the condition was present at the time of the order for inpatient admission. (Template Last Revised: June 2020) MTDD
[2023-10-03 17:20] LABS: AST 23 U/L (17-59)
--- NOTE | 2023-10-04 08:54 | P.PN ---
Subjective Principal diagnosis: The patient is status post colostomy reversal but having postop pulmonary embolus with thrombectomy. The patient seems less distended today but is anxious. s Patient seems anxious. He feels as though he needs to move his bowels. Passing flatus appropriately however he is less distended. Objective - Vital Signs Vital signs: Vital Signs Temp 98.2 F 10/04/23 08:00 Pulse 80 10/04/23 08:00 Resp 18 10/04/23 08:00 BP 147/79 10/04/23 08:00 Pulse Ox 98 10/04/23 08:00 FiO2 21 10/02/23 08:50 Intake & Output 10/03/23 10/04/23 10/04/23 18:59 06:59 18:59 Intake Total 120 Output Total 0 Balance 120 Weight 113 kg 111.4 kg Intake: Oral 120 Output: Drainage 0 Medial 0 Other: Voiding Method Toilet Toilet Urinal # Voids 1 # Bowel Movements 1 - Constitutional General appearance: Present: cooperative, no acute distress, obese - EENT Eyes: Absent: abnormal pupil - Neck Neck: Absent: lymphadenopathy - Respiratory Respiratory: bilateral: diminished - Cardiovascular Rhythm: regular Heart sounds: normal: S1, S2 Abnormal Heart Sounds: Absent: S3 Gallop - Gastrointestinal General gastrointestinal: Present: distended, soft - Integumentary Integumentary: Absent: cellulitis - Labs CBC & Chem 7: 10/03/23 10:31 10/03/23 10:31 Labs: Abnormal Lab Results - Last 24 Hours (Table) 10/03/23 10/03/23 Range/Units 10:31 10:31 Hgb 11.2 L (13.0-17.5) gm/dL Hct 37.6 L (39.0-53.0) % MCV 74.7 L (80.0-100.0) fL MCH 22.2 L (25.0-35.0) pg MCHC 29.8 L (31.0-37.0) g/dL RDW 17.2 H (11.5-15.5) % Sodium 133 L (137-145) mmol/L Glucose 108 H (74-99) mg/dL Total Protein 6.1 L (6.3-8.2) g/dL Assessment and Plan (1) History of colostomy reversal Current Visit: Yes Status: Acute Code(s): Z98.890 - OTHER SPECIFIED POSTPROCEDURAL STATES SNOMED Code(s): 85483482011581590 (2) Hypertension Current Visit: No Status: Acute Code(s): I10 - ESSENTIAL (PRIMARY) HYPERTENSION SNOMED Code(s): 69000750 (3) Moderate major depression Current Visit: Yes Status: Acute Code(s): F32.1 - MAJOR DEPRESSIVE DISORDER, SINGLE EPISODE, MODERATE SNOMED Code(s): 336463 Plan: Clinically seems improved since yesterday. Stabilization from pulmonary embolus noted. Minimal pain is stated. Status post colostomy reversal secondary to acute diverticulitis with abscess. Check CBC and CMP in a.m. Time with Patient: Greater than 30
[2023-10-04] MEDS: METOCLOPRAMIDE 5 MG/ML 2 ML VIAL IVP SCH (10:11)
--- NOTE | 2023-10-04 11:05 | XR ---
EXAMINATION TYPE: XR abdomen 2V DATE OF EXAM: 10/04/2023 COMPARISON: Abdominal radiograph 10/01/2023 HISTORY: Abdominal pain, distention TECHNIQUE: Upright and supine views of the abdomen were obtained. FINDINGS: Postsurgical changes with midline joseph identified. No pneumoperitoneum identified. Small bowel appears normal in caliber. Large bowel gaseous distention measuring up to 9.8 cm. This pr imarily involves the ascending, transverse, descending colon. Cardiomegaly. No unusual calcifications. Degenerative changes of the lumbar spine. IMPRESSION: Findings suggestive of continued colonic ileus.
--- NOTE | 2023-10-04 13:15 | P.PN ---
Subjective Progress Note Date: 10/04/23 CHIEF COMPLAINT: Diverticulitis HISTORY OF PRESENT ILLNESS: Postop day #8 status post colostomy reversal. Patient complaining of abdominal pain with abdominal distention. Reports he is stopped passing gas. He did have a bowel movement last night. Denies any nausea or vomiting. Reports overall just not feeling well. He did ambulate in the hallway yesterday. Patient seen and examined with Dr. Ziegler PHYSICAL EXAM: VITAL SIGNS: Reviewed. GENERAL: no acute distress. ABDOMEN: Distended. Diffuse tenderness. Incisional dressing clean dry and intact NEUROLOGIC: Alert and oriented. Cranial nerves II through XII grossly intact. ASSESSMENT: 1. Diverticulitis status post colostomy reversal 2. Postop ileus can be an expected finding 3. PE status post thrombectomy with vascular surgery on Eliquis for anticoagulation PLAN: -Downgrade diet to n.p.o. -Start patient on Reglan for ileus. Discontinue Celexa due to interacting with the Reglan -Abdominal x-ray ordered still showing ileus -Encourage patient to ambulate -Repeat labs in a.m. Physician Jewel Waxer note has been reviewed by physician. Signing provider agrees with the documented findings, assessment, and plan of care. Objective - Vital Signs Vital signs: Vital Signs Temp 98.2 F 10/04/23 08:00 Pulse 80 10/04/23 08:00 Resp 18 10/04/23 08:00 BP 147/79 10/04/23 08:00 Pulse Ox 98 10/04/23 08:00 FiO2 21 10/02/23 08:50 Intake & Output 10/03/23 10/04/23 10/04/23 18:59 06:59 18:59 Intake Total 120 Output Total 0 Balance 120 Weight 113 kg 111.4 kg Intake: Oral 120 Output: Drainage 0 Medial 0 Other: Voiding Method Toilet Toilet Urinal # Voids 1 # Bowel Movements 1 - Labs CBC & Chem 7: 10/03/23 10:31 10/03/23 10:31 Labs: Abnormal Lab Results - Last 24 Hours (Table) 10/03/23 10/03/23 Range/Units 10:31 10:31 Hgb 11.2 L (13.0-17.5) gm/dL Hct 37.6 L (39.0-53.0) % MCV 74.7 L (80.0-100.0) fL MCH 22.2 L (25.0-35.0) pg MCHC 29.8 L (31.0-37.0) g/dL RDW 17.2 H (11.5-15.5) % Sodium 133 L (137-145) mmol/L Glucose 108 H (74-99) mg/dL Total Protein 6.1 L (6.3-8.2) g/dL
--- NOTE | 2023-10-04 18:01 | P.PN ---
Subjective Progress Note Date: 10/04/23 Patient is a 53-year-old white male with past medical history significant for bowel obstruction and previous sigmoidectomy with end colostomy performed 06/13/2023. Pathology was benign for malignancy, consistent with diverticulitis and abscess. Also, had a recent hospitalization in Aug, 2023 for abdominal wall cellulitis. Patient was admitted 09/26/2023 for an elective colostomy reversal. No intraoperative complications reported. Postoperatively, patient was noted to be hypoxemic and tachycardic. A D-dimer was drawn and elevated at 17. A follow-up chest CTA demonstrated multiple filling defects in the distal right and left pulmonary arteries and proximal segmental branches consistent with bilateral pulmonary emboli. No definitive evidence of right-sided heart strain. Patient does have a epidural, and we did reach out to anesthesia services. I did speak to my supervising physician, who had already spoke to Dr. Mistry, and agreed with removal of epidural and starting the patient on systemic heparin. Overall, patient is hemodynamically stable. He continues on 4 L/min nasal cannula. SpO2 is 93%. Minimally dyspneic with conversation. Heart rate is 110 bpm. Blood pressure is normotensive. CBC: WBC count 10.9, hemoglobin 11.8, hematocrit 39.4, platelets 176. Baseline coagulation profile unremarkable, APTT 25.8. BMP: Sodium 128, potassium 4.7, chloride 99, serum bicarb 19, BUN 13, creatinine 0.83, glucose 155. Patient is currently lying flat in bed. He denies any significant complaints. Denies shortness of breath or chest pain. Denies any personal or familial history of thromboembolic disease. Denies unilateral lower extremity swelling. The nurses already removed his epidural catheter. No drainage or hematoma. Postsurgical abdominal incision dressed with wound VAC. Very minimal serosanguineous output in canister. Patient is going to be transferred to the selective care unit for closer monitoring. Progress note dated September 29, 2023. 53-year-old male with a history of bowel obstruction, with previous sigmoidectomy, with end colostomy, which was performed in June of this year. Pathology was consistent with diverticulitis, and abscess. The patient was readmitted to the hospital, and had a reversal of colostomy performed. He developed postoperative shortness of breath, was found to have pulmonary embolism. The CT angiogram, did not reveal a right heart strain, but apparently the echocardiogram did. The patient did go for a suction thrombectomy, with Dr. Poe today. The patient was on IV heparin, and 2 L by nasal cannula. Saturations were 95%. Current labs include a white count 7.3, hemoglobin 10.6, hematocrit 35.1, and a normal platelet count. PTT was 47. Sodium 135, potassium 4.3, chlorides 104, CO2 28, BUN 5, creatinine 0.65. Troponins were 0.304 and 0.209. Progress note dated September 30, 2023. 53-year-old male status post bowel obstruction with previous sigmoidectomy and end colostomy. That procedure took place in June of this year. Pathology at that time was consistent with diverticulitis and abscess. There was no malignancy. The patient was readmitted to the hospital and had reversal of colostomy performed. Subsequent to that, the patient developed shortness of breath, was discovered to have a pulmonary embolism. The CTA did not suggest right heart strain, but the echocardiogram did. For that reason, the patient went to the catheterization laboratory and had suction thrombectomy, done by Dr. Poe. Currently, the patient is resting comfortably in room 355. He is on 2 L of oxygen. He is receiving IV heparin. He is getting dextrose with half-normal saline with 20 mill equivalents of potassium at 125 cc an hour. He has no specific complaints. He denies any shortness of breath, or chest pain. Current labs include a white count 7, hemoglobin 11.1, hematocrit 36.8, platelet count 233,000. Sodium 136, potassium 4.4, chlorides 103, CO2 29, BUN 6, creatinine 0.7. Glucose is 117. Total protein is 6. Albumin is 3.4. Progress note dated October 01, 2023. The patient is seen today in room 355. Clinically, he is feeling much improved. He is getting IV heparin, and D5 with half-normal saline and 20 mill equivalents of potassium, at 125 cc an hour. He is currently on room air. He denies any chest pain or difficulty breathing. Current labs include a white count 7, hemoglobin 11.1, hematocrit 36.8, platelet count 233,000. Sodium 136, potassium 4.4, chlorides 103, CO2 29, BUN 6, creatinine 0.7. Albumin is 3.4. 10/02/2023, no specific complaints. The patient remains on IV heparin. Remains on 3 Suboxone by nasal cannula with a pulse ox of 94%. His mobility is still very limited. Abdominal wound is dry clean and intact. No significant nausea or vomiting or abdominal pain. The patient is postop day #6 following a colostomy reversal. Patient is having bowel movement activity and diet will be advanced to full. IV fluids will be discontinued. IV heparin will be also discontinued and the patient is going to be transition to long-term anticoagulation with Eliquis. White cell count is at 9.9 with a, hemoglobin 12.4 and a platelet count of 235. Sodium levels at 134, potassium is 4.3, BUN is 9 with a creatinine of 0.7. The patient has no specific complaints. Anticoagulation will be started with Eliquis. 10/03/2023, the patient is resting comfortably in bed.On 7 the patient did encounter some nausea and emesis. The patient may have an underlying postop ileus. He does have positive bowel sounds and he is stooling. He will be started on some clear liquid diet. I took the patient off IV heparin and the patient is currently on anticoagulation with Eliquis regarding his pulm embolism. He is on 40 of oxygen by nasal cannula with a pulse ox of 97%. The white cell count of 9.1 with a hemoglobin of 11.2 and a platelet count of 230, BUN is 12 with a creatinine of 0.7 and a sodium levels at 133. The patient is afebrile for now. Abdominal wound is dry clean and intact. No abdominal pain. No chest pain. No pleurisy or hemoptysis. No other significant events overnight. 10/04/2023, the patient is being seen for a follow-up. The patient is currently on room air oxygen. No respiratory distress. He is able to sit up on a chair. He is doing also limited ambulation. Meanwhile, he is currently NPO. Abdomen is slightly distended. X-ray of the abdomen shows colonic ileus and the patient has no bowel movement activity. As such, the patient has been kept n.p.o. and general surgery is on the case. Patient is still recovering from his abdominal surgery which included a colostomy reversal and the patient is postop day #8. He remains on anticoagulation. Hemodynamically stable. The white cell count is at 9.1 with a hemoglobin of 11.2 and a platelet count of 230. Electrolytes are all within normal limits. Normal renal function. Objective - Vital Signs Vital signs: Vital Signs Temp 98.2 F 10/04/23 08:00 Pulse 80 10/04/23 08:00 Resp 18 10/04/23 08:00 BP 147/79 10/04/23 08:00 Pulse Ox 98 10/04/23 08:00 FiO2 21 10/02/23 08:50 Intake & Output 10/03/23 10/04/23 10/04/23 18:59 06:59 18:59 Intake Total 120 Output Total 0 1 Balance 120 -1 Weight 113 kg 111.4 kg Intake: Oral 120 Output: Drainage 0 Medial 0 Stool 1 Other: Voiding Method Toilet Toilet Urinal # Voids 1 # Bowel Movements 1 - Exam No acute distress, oriented 3. Currently on room air oxygen. HEENT examination is grossly unremarkable. Mucous membranes are moist. No oral lesions. Neck supple. Full range of motion. No adenopathy thyromegaly or neck vein distention. Cardiovascular examination reveals regular rhythm rate. S1-S2 normal. No S3 or S4. No discernible murmur noted. Lungs reveal clear breath sounds. Breath sounds are equal bilaterally. No adventitious lung sounds including wheezes rhonchi or crackles. Abdomen is distended and the patient has sluggish or absent bowel sounds. Surgical scar is dry clean and intact. Extremities are intact. No cyanosis clubbing or edema. Skin is without rash or lesion. Neurologic examination is brief but nonfocal. - Labs CBC & Chem 7: 10/03/23 10:31 10/03/23 10:31 Assessment and Plan Plan: Acute bilateral segmental and subsegmental pulmonary emboli, no CT evidence of right-sided heart strain, significant strain noted on echocardiogram. The patient was treated with the patient remains on suction thrombectomy (Inari), September 29, 2023. Patient is currently on IV heparin for now. Ultrasound Doppler of the lower extremities have been negative. Echocardiogram shows a preserved ventricular ejection fraction with an ejection fraction of 6065%, severe RV enlargement and right ventricular systolic pressure estimated to be around 40 mmHg. The patient is currently on anticoagulation with Eliquis. Acute hypoxemic respiratory failure, currently on room air oxygen Postoperative day # 8 following colostomy reversal. Colonic postoperative ileus. Absent bowel sounds. Absent flatus and the patient is currently NPO. History of sigmoidectomy, secondary to diverticulitis with abscess, performed on 06/13/2023. History of abdominal wall cellulitis. History of hypertension. Morbid obesity, with a BMI of 41.5 kg/m. Plan: Keep the patient n.p.o. except meds. Continue anticoagulation with Eliquis Continue incentive spirometer Increase mobility Surgical site over the anterior abdominal wall is dry clean and intact Patient is clinically stable and hemodynamically stable. Monitor electrolytes and blood work Wean down FiO2 as tolerated to maintain saturation above 90%, currently on room air oxygen Will continue to follow.
[2023-10-05 09:21] LABS: Anisocytosis Slight; Basophils # (A) 0.1 k/uL (0-0.2); Basophils % (A) 1 %; Eosinophils # (A) 0.1 k/uL (0-0.7); Eosinophils % (A) 1 %; HCT 37.3 % (39.0-53.0); HGB 11.3 gm/dL (13.0-17.5); Hypochromasia Slight; Lymphocytes # (A) 1.6 k/uL (1.0-4.8); Lymphocytes % (A) 13 %; MCH 22.3 pg (25.0-35.0); MCHC 30.1 g/dL (31.0-37.0); Mean Platelet Volume 7.5; Microcytosis Moderate; Monocytes % (A) 8 %; Neutrophils % (A) 75 %; Platelet Count 270 k/uL (150-450); RBC 5.04 m/uL (4.30-5.90); RDW 17.2 % (11.5-15.5)
[2023-10-05 09:30] LABS: African American GFR (CKD) >90 (>60 ml/min/1.73 sqM); Anion Gap 10 mmol/L; Blood Urea Nitrogen 13 mg/dL (9-20); Calcium 8.4 mg/dL (8.4-10.2); Carbon Dioxide 24 mmol/L (22-30); Chloride 98 mmol/L (98-107); Glucose 98 mg/dL (74-99); Non-African American GFR(CKD) >90 (>60 ml/min/1.73 sqM); Sodium 132 mmol/L (137-145)
[2023-10-05 11:57] VITALS: RESP 16
--- NOTE | 2023-10-05 14:12 | P.PN ---
Subjective Progress Note Date: 10/05/23 53-year-old male with a history of bowel obstruction, with previous sigmoidectomy, with end colostomy, which was performed in June of this year. Pathology was consistent with diverticulitis, and abscess. The patient was readmitted to the hospital, and had a reversal of colostomy performed. He developed postoperative shortness of breath, was found to have pulmonary embolism. The CT angiogram, did not reveal a right heart strain, but apparently the echocardiogram did. The patient did go for a suction thrombectomy, with Dr. Poe 09/29. Patient seen and examined. Denies any abdominal pain. Still has not had a bowel movement or passing gas. 09/30. Patient seen and examined. Still complaining abdominal distention, not passing any gas. Ordered acute abdominal series 10/03/2023, the patient is resting comfortably in bed.On 7 the patient did encounter some nausea and emesis. The patient may have an underlying postop ileus. He does have positive bowel sounds and he is stooling. He will be started on some clear liquid diet. I took the patient off IV heparin and the patient is currently on anticoagulation with Eliquis regarding his pulm embolism. He is on 40 of oxygen by nasal cannula with a pulse ox of 97%. The white cell count of 9.1 with a hemoglobin of 11.2 and a platelet count of 230, BUN is 12 with a creatinine of 0.7 and a sodium levels at 133. The patient is afebrile for now. Abdominal wound is dry clean and intact. No abdominal pain. No chest pain. No pleurisy or hemoptysis. No other significant events overnight. 10/04/2023, the patient is being seen for a follow-up. The patient is currently on room air oxygen. No respiratory distress. He is able to sit up on a chair. He is doing also limited ambulation. Meanwhile, he is currently NPO. Abdomen is slightly distended. X-ray of the abdomen shows colonic ileus and the patient has no bowel movement activity. As such, the patient has been kept n.p.o. and general surgery is on the case. Patient is still recovering from his abdominal surgery which included a colostomy reversal and the patient is postop day #8. He remains on anticoagulation. Hemodynamically stable. The white cell count is at 9.1 with a hemoglobin of 11.2 and a platelet count of 230. Electrolytes are all within normal limits. Normal renal function. 10/04. Patient seen and examined. Dr. Qiu took over care from Dr. Alexander. Ameya mcneill on clear liquid diet, states he feels better. REVIEW OF SYSTEMS: CONSTITUTIONAL: No fever, no malaise,. CARDIOVASCULAR: No chest pain, no palpitations, no syncope. PULMONARY: No shortness of breath, no cough, GASTROINTESTINAL: As mentioned above NEUROLOGICAL: No headaches, no weakness, PHYSICAL EXAMINATION: GENERAL: The patient is alert and oriented x3, not in any acute distress. Well developed, well nourished. HEENT: Pupils are round and equally reacting to light. EOMI. No scleral icterus. No conjunctival pallor. Normocephalic, atraumatic. No pharyngeal erythema. No thyromegaly. CARDIOVASCULAR: S1 and S2 present. No murmurs, rubs, or gallops. PULMONARY: Chest is clear to auscultation, no wheezing or crackles. ABDOMEN: Soft, abdominal wall incision seen, bowel sounds audible MUSCULOSKELETAL: No joint swelling or deformity. EXTREMITIES: No cyanosis, clubbing, or pedal edema. NEUROLOGICAL: Gross neurological examination did not reveal any focal deficits. SKIN: No rashes. Assessment and plan Bilateral segmental and subsegmental pulmonary emboli, no CT evidence of right- sided heart strain, significant strain noted on echocardiogram. S/P suction thrombectomy (Inari), September 29, 2023. Acute hypoxemic respiratory failure, currently on 2 L/min nasal cannula. status post colostomy reversal. History of sigmoidectomy, secondary to diverticulitis with abscess, performed on 06/13/2023. History of abdominal wall cellulitis. History of hypertension. Morbid obesity, with a BMI of 41.5 kg/m. Monitor vital signs Monitor CBC Monitor CMP Continue Eliquis Continue antiemetics Continue IV Protonix Pulmonology following VASc surgery following General surgery following Labs and medication were reviewed.. Continue same treatment. Continue with symptomatic treatment. Resume home medication. Monitor labs and vitals. DVT and GI prophylaxis. Further recommendations as per clinical course of the patient Dictation was produced using [employer] dictation software. please excuse any grammatical, word or spelling errors. Objective - Vital Signs Vital signs: Vital Signs Temp 97.9 F 10/05/23 08:42 Pulse 91 10/05/23 08:42 Resp 18 10/05/23 08:42 BP 129/79 10/05/23 08:42 Pulse Ox 96 10/05/23 08:42 FiO2 21 10/02/23 08:50 Intake & Output 10/04/23 10/05/23 10/05/23 18:59 06:59 18:59 Output Total 1 Balance -1 Weight 110.6 kg Output: Stool 1 Other: Voiding Method Toilet Urinal # Bowel Movements 1 0 - Labs CBC & Chem 7: 10/05/23 08:43 10/05/23 08:43 Labs: Abnormal Lab Results - Last 24 Hours (Table) 10/05/23 10/05/23 Range/Units 08:43 08:43 WBC 12.0 H (3.8-10.6) k/uL Hgb 11.3 L (13.0-17.5) gm/dL Hct 37.3 L (39.0-53.0) % MCV 74.0 L (80.0-100.0) fL MCH 22.3 L (25.0-35.0) pg MCHC 30.1 L (31.0-37.0) g/dL RDW 17.2 H (11.5-15.5) % Neutrophils # 9.0 H (1.3-7.7) k/uL Sodium 132 L (137-145) mmol/L
--- NOTE | 2023-10-05 16:19 | P.PN ---
Subjective Progress Note Date: 10/05/23 Patient is a 53-year-old white male with past medical history significant for bowel obstruction and previous sigmoidectomy with end colostomy performed 06/13/2023. Pathology was benign for malignancy, consistent with diverticulitis and abscess. Also, had a recent hospitalization in Aug, 2023 for abdominal wall cellulitis. Patient was admitted 09/26/2023 for an elective colostomy reversal. No intraoperative complications reported. Postoperatively, patient was noted to be hypoxemic and tachycardic. A D-dimer was drawn and elevated at 17. A follow-up chest CTA demonstrated multiple filling defects in the distal right and left pulmonary arteries and proximal segmental branches consistent with bilateral pulmonary emboli. No definitive evidence of right-sided heart strain. Patient does have a epidural, and we did reach out to anesthesia services. I did speak to my supervising physician, who had already spoke to Dr. Mistry, and agreed with removal of epidural and starting the patient on systemic heparin. Overall, patient is hemodynamically stable. He continues on 4 L/min nasal cannula. SpO2 is 93%. Minimally dyspneic with conversation. Heart rate is 110 bpm. Blood pressure is normotensive. CBC: WBC count 10.9, hemoglobin 11.8, hematocrit 39.4, platelets 176. Baseline coagulation profile unremarkable, APTT 25.8. BMP: Sodium 128, potassium 4.7, chloride 99, serum bicarb 19, BUN 13, creatinine 0.83, glucose 155. Patient is currently lying flat in bed. He denies any significant complaints. Denies shortness of breath or chest pain. Denies any personal or familial history of thromboembolic disease. Denies unilateral lower extremity swelling. The nurses already removed his epidural catheter. No drainage or hematoma. Postsurgical abdominal incision dressed with wound VAC. Very minimal serosanguineous output in canister. Patient is going to be transferred to the selective care unit for closer monitoring. Progress note dated September 29, 2023. 53-year-old male with a history of bowel obstruction, with previous sigmoidectomy, with end colostomy, which was performed in June of this year. Pathology was consistent with diverticulitis, and abscess. The patient was readmitted to the hospital, and had a reversal of colostomy performed. He developed postoperative shortness of breath, was found to have pulmonary embolism. The CT angiogram, did not reveal a right heart strain, but apparently the echocardiogram did. The patient did go for a suction thrombectomy, with Dr. Poe today. The patient was on IV heparin, and 2 L by nasal cannula. Saturations were 95%. Current labs include a white count 7.3, hemoglobin 10.6, hematocrit 35.1, and a normal platelet count. PTT was 47. Sodium 135, potassium 4.3, chlorides 104, CO2 28, BUN 5, creatinine 0.65. Troponins were 0.304 and 0.209. Progress note dated September 30, 2023. 53-year-old male status post bowel obstruction with previous sigmoidectomy and end colostomy. That procedure took place in June of this year. Pathology at that time was consistent with diverticulitis and abscess. There was no malignancy. The patient was readmitted to the hospital and had reversal of colostomy performed. Subsequent to that, the patient developed shortness of breath, was discovered to have a pulmonary embolism. The CTA did not suggest right heart strain, but the echocardiogram did. For that reason, the patient went to the catheterization laboratory and had suction thrombectomy, done by Dr. Poe. Currently, the patient is resting comfortably in room 355. He is on 2 L of oxygen. He is receiving IV heparin. He is getting dextrose with half-normal saline with 20 mill equivalents of potassium at 125 cc an hour. He has no specific complaints. He denies any shortness of breath, or chest pain. Current labs include a white count 7, hemoglobin 11.1, hematocrit 36.8, platelet count 233,000. Sodium 136, potassium 4.4, chlorides 103, CO2 29, BUN 6, creatinine 0.7. Glucose is 117. Total protein is 6. Albumin is 3.4. Progress note dated October 01, 2023. The patient is seen today in room 355. Clinically, he is feeling much improved. He is getting IV heparin, and D5 with half-normal saline and 20 mill equivalents of potassium, at 125 cc an hour. He is currently on room air. He denies any chest pain or difficulty breathing. Current labs include a white count 7, hemoglobin 11.1, hematocrit 36.8, platelet count 233,000. Sodium 136, potassium 4.4, chlorides 103, CO2 29, BUN 6, creatinine 0.7. Albumin is 3.4. 10/02/2023, no specific complaints. The patient remains on IV heparin. Remains on 3 Suboxone by nasal cannula with a pulse ox of 94%. His mobility is still very limited. Abdominal wound is dry clean and intact. No significant nausea or vomiting or abdominal pain. The patient is postop day #6 following a colostomy reversal. Patient is having bowel movement activity and diet will be advanced to full. IV fluids will be discontinued. IV heparin will be also discontinued and the patient is going to be transition to long-term anticoagulation with Eliquis. White cell count is at 9.9 with a, hemoglobin 12.4 and a platelet count of 235. Sodium levels at 134, potassium is 4.3, BUN is 9 with a creatinine of 0.7. The patient has no specific complaints. Anticoagulation will be started with Eliquis. 10/03/2023, the patient is resting comfortably in bed.On 7 the patient did encounter some nausea and emesis. The patient may have an underlying postop ileus. He does have positive bowel sounds and he is stooling. He will be started on some clear liquid diet. I took the patient off IV heparin and the patient is currently on anticoagulation with Eliquis regarding his pulm embolism. He is on 40 of oxygen by nasal cannula with a pulse ox of 97%. The white cell count of 9.1 with a hemoglobin of 11.2 and a platelet count of 230, BUN is 12 with a creatinine of 0.7 and a sodium levels at 133. The patient is afebrile for now. Abdominal wound is dry clean and intact. No abdominal pain. No chest pain. No pleurisy or hemoptysis. No other significant events overnight. 10/04/2023, the patient is being seen for a follow-up. The patient is currently on room air oxygen. No respiratory distress. He is able to sit up on a chair. He is doing also limited ambulation. Meanwhile, he is currently NPO. Abdomen is slightly distended. X-ray of the abdomen shows colonic ileus and the patient has no bowel movement activity. As such, the patient has been kept n.p.o. and general surgery is on the case. Patient is still recovering from his abdominal surgery which included a colostomy reversal and the patient is postop day #8. He remains on anticoagulation. Hemodynamically stable. The white cell count is at 9.1 with a hemoglobin of 11.2 and a platelet count of 230. Electrolytes are all within normal limits. Normal renal function. On 10/05/2023, the patient is passing bowel movements. Abdomen is less distended. He reported that his bowel movement was slightly bloody. Noted the patient's hemoglobin has remained stable at 11.3. No melanotic stools. He remains on room air oxygen. He remains on anticoagulation with Eliquis. He is ambulating. He is postop day #9 status post reversal of the colostomy. This was complicated by surgical ileus which is essentially improving. No nausea. No emesis. No abdominal pain. No chest pain. No pleurisy. No hemoptysis. Objective - Vital Signs Vital signs: Vital Signs Temp 97.9 F 10/05/23 08:42 Pulse 91 10/05/23 08:42 Resp 18 10/05/23 08:42 BP 129/79 10/05/23 08:42 Pulse Ox 96 10/05/23 08:42 FiO2 21 10/02/23 08:50 Intake & Output 10/04/23 10/05/23 10/05/23 18:59 06:59 18:59 Output Total 1 Balance -1 Weight 110.6 kg Output: Stool 1 Other: Voiding Method Toilet Urinal # Bowel Movements 1 0 - Exam No acute distress, oriented 3. Currently on room air oxygen. HEENT examination is grossly unremarkable. Mucous membranes are moist. No oral lesions. Neck supple. Full range of motion. No adenopathy thyromegaly or neck vein distention. Cardiovascular examination reveals regular rhythm rate. S1-S2 normal. No S3 or S4. No discernible murmur noted. Lungs reveal clear breath sounds. Breath sounds are equal bilaterally. No adventitious lung sounds including wheezes rhonchi or crackles. Abdomen is distended and the patient has sluggish or absent bowel sounds. Surgical scar is dry clean and intact. Extremities are intact. No cyanosis clubbing or edema. Skin is without rash or lesion. Neurologic examination is brief but nonfocal. - Labs CBC & Chem 7: 10/05/23 08:43 10/05/23 08:43 Labs: Abnormal Lab Results - Last 24 Hours (Table) 10/05/23 10/05/23 Range/Units 08:43 08:43 WBC 12.0 H (3.8-10.6) k/uL Hgb 11.3 L (13.0-17.5) gm/dL Hct 37.3 L (39.0-53.0) % MCV 74.0 L (80.0-100.0) fL MCH 22.3 L (25.0-35.0) pg MCHC 30.1 L (31.0-37.0) g/dL RDW 17.2 H (11.5-15.5) % Neutrophils # 9.0 H (1.3-7.7) k/uL Sodium 132 L (137-145) mmol/L Assessment and Plan Plan: Acute bilateral segmental and subsegmental pulmonary emboli, no CT evidence of right-sided heart strain, significant strain noted on echocardiogram. The patient was treated with the patient remains on suction thrombectomy (Inari), September 29, 2023. Patient is currently on IV heparin for now. Ultrasound Doppler of the lower extremities have been negative. Echocardiogram shows a preserved ventricular ejection fraction with an ejection fraction of 6065%, severe RV enlargement and right ventricular systolic pressure estimated to be around 40 mmHg. The patient is currently on anticoagulation with Eliquis. Acute hypoxemic respiratory failure, currently on room air oxygen Postoperative day # 9 following colostomy reversal. Colonic postoperative ileus. Clinically improving. The patient is passing flatus and bowel movement activity. Abdomen is less distended. History of sigmoidectomy, secondary to diverticulitis with abscess, performed on 06/13/2023. History of abdominal wall cellulitis. History of hypertension. Morbid obesity, with a BMI of 41.5 kg/m. Plan: Gradually advance diet as tolerated, will start the patient on clear liquids. Watch for any signs of GI bleeding. Monitor the hemoglobin Continue anticoagulation with Eliquis Continue incentive spirometer Increase mobility Surgical site over the anterior abdominal wall is dry clean and intact Patient is clinically stable and hemodynamically stable Will continue to follow.
--- NOTE | 2023-10-05 19:05 | P.PN ---
Subjective Progress Note Date: 10/05/23 CHIEF COMPLAINT: Colostomy reversal for diverticulitis HISTORY OF PRESENT ILLNESS: The patient is a 53-year-old male who presents with colostomy reversal for diverticulitis. Patient had pulmonary embolism, acute. He has developed a prolonged ileus. Patient's diet has been downgraded to n.p.o. status. This evening, patient had a large bowel movement and moderate passage of flatus. Denies abdominal pain. ROS: No reports of nausea and vomiting. No bowel movements. No fevers or chills. No new chest pain. No productive sputum PHYSICAL EXAM: VITAL SIGNS: Reviewed CONSTITUTIONAL: Well developed and in no acute distress. EYES: Conjuctivae without sclera icterus. Extraocular movements grossly intact. HEAD, EARS, NOSE, THROAT: Moist buccal mucosa. Head is atraumatic, normocephalic. Hears conversational speech. No nasal drainage. RESPIRATORY: Non-labored respirations and equal bilateral excursions. CARDIOVASCULAR: Palpable 2+ radial pulses. ABDOMEN: Protuberant. No peritonitis. MUSCULOSKELETAL: No gross deformity of the lower extremities noted. No clubbing. No cyanosis. SKIN: Good skin turgor. Well perfused. NEUROLOGIC: Cranial nerves II through XII grossly intact. No focal or lateralizing signs. PSYCH: Appropriate affect. Alert and oriented to person, place and time. CLINICAL LABS: Reviewed. WBC elevated 9.1-12.0, leukocytosis STUDIES: Acute abdominal series independent reviewed demonstrates no free air. Moderate distention of the small including large bowel consistent with ileus. This is my independent interpretation. ASSESSMENT: 1. Diverticulitis with colostomy status post reversal 2. Pulmonary embolism, acute 3. Postoperative ileus PLAN: 1. Clinically, patient is passing flatus and having bowel movements and may restart his diet. 2. For abdominal distention, will add simethicone gas chews. 3. Trial of low fiber diet described without seeds. 4. Care plan discussed in detail with patient which shared decision making was performed Objective - Vital Signs Vital signs: Vital Signs Temp 98.1 F 10/05/23 16:25 Pulse 86 10/05/23 16:25 Resp 16 10/05/23 16:25 BP 136/76 10/05/23 16:25 Pulse Ox 92 L 10/05/23 16:25 FiO2 21 10/02/23 08:50 Intake & Output 10/04/23 10/05/23 10/05/23 18:59 06:59 18:59 Intake Total 20 Output Total 1 Balance -1 20 Weight 110.6 kg Intake: IV 20 Invasive Line 3 20 Output: Stool 1 Other: Voiding Method Toilet Toilet Urinal Urinal # Bowel Movements 1 0 1 - Labs CBC & Chem 7: 10/05/23 08:43 10/05/23 08:43 Labs: Abnormal Lab Results - Last 24 Hours (Table) 10/05/23 10/05/23 Range/Units 08:43 08:43 WBC 12.0 H (3.8-10.6) k/uL Hgb 11.3 L (13.0-17.5) gm/dL Hct 37.3 L (39.0-53.0) % MCV 74.0 L (80.0-100.0) fL MCH 22.3 L (25.0-35.0) pg MCHC 30.1 L (31.0-37.0) g/dL RDW 17.2 H (11.5-15.5) % Neutrophils # 9.0 H (1.3-7.7) k/uL Sodium 132 L (137-145) mmol/L
[2023-10-05] MEDS: SIMETHICONE 80 MG CHEWABLE PO SCH (19:40)
[2023-10-06 08:38] VITALS: BP 131/79; PULSE 95; TEMP 97.9
[2023-10-06 12:13] VITALS: BMI 40.1
--- NOTE | 2023-10-06 13:38 | P.DS ---
Providers Date of admission: 09/26/23 09:13 Expected date of discharge: 10/06/23 Attending physician: Odilon Ziegler Consults: 09/26/23 12:26 Consult Physician Routine Consulting Provider: Gerald Alexander Consult Reason/Comments: medical management Do you want consulting provider notified?: Yes 09/27/23 21:19 Consult Physician Stat Consulting Provider: Tom Soares Consult Reason/Comments: Bilateral upper and lower lobe PEs Do you want consulting provider notified?: Yes Primary care physician: Gerald Alexander Hospital Course: Discharge diagnoses; Bilateral segmental and subsegmental pulmonary emboli, no CT evidence of right- sided heart strain, significant strain noted on echocardiogram. S/P suction thrombectomy (Inari), September 29, 2023. Acute hypoxemic respiratory failure, currently on 2 L/min nasal cannula. status post colostomy reversal. History of sigmoidectomy, secondary to diverticulitis with abscess, performed on 06/13/2023. History of abdominal wall cellulitis. History of hypertension. Morbid obesity, with a BMI of 41.5 kg/m. Hospital course; 53-year-old male with a history of bowel obstruction, with previous sigmoidectomy, with end colostomy, which was performed in June of this year. Pathology was consistent with diverticulitis, and abscess. The patient was readmitted to the hospital, and had a reversal of colostomy performed. He developed postoperative shortness of breath, was found to have pulmonary embolism. The CT angiogram, did not reveal a right heart strain, but apparently the echocardiogram did. The patient did go for a suction thrombectomy, with Dr. Poe 09/29. Patient seen and examined. Denies any abdominal pain. Still has not had a bowel movement or passing gas. 09/30. Patient seen and examined. Still complaining abdominal distention, not passing any gas. Ordered acute abdominal series 10/03/2023, the patient is resting comfortably in bed.On the patient did encounter some nausea and emesis. The patient may have an underlying postop ileus. He does have positive bowel sounds and he is stooling. He will be started on some clear liquid diet. I took the patient off IV heparin and the patient is currently on anticoagulation with Eliquis regarding his pulm embolism. He is on 40 of oxygen by nasal cannula with a pulse ox of 97%. The white cell count of 9.1 with a hemoglobin of 11.2 and a platelet count of 230, BUN is 12 with a creatinine of 0.7 and a sodium levels at 133. The patient is afebrile for now. Abdominal wound is dry clean and intact. No abdominal pain. No chest pain. No pleurisy or hemoptysis. No other significant events overnight. 10/04/2023, the patient is being seen for a follow-up. The patient is currently on room air oxygen. No respiratory distress. He is able to sit up on a chair. He is doing also limited ambulation. Meanwhile, he is currently NPO. Abdomen is slightly distended. X-ray of the abdomen shows colonic ileus and the patient has no bowel movement activity. As such, the patient has been kept n.p.o. and general surgery is on the case. Patient is still recovering from his abdominal surgery which included a colostomy reversal and the patient is postop day #8. He remains on anticoagulation. Hemodynamically stable. The white cell count is at 9.1 with a hemoglobin of 11.2 and a platelet count of 230. Electrolytes are all within normal limits. Normal renal function. 10/04. Patient seen and examined. Dr. Qiu took over care from Dr. Alexander. Currently on clear liquid diet, states he feels better. 10/05. Patient seen and examined. General surgery cleared the patient for discharge, currently tolerating regular diet. Being discharged on Eliquis, patient received first 9 dose of 10 mg in the hospital, prescription given to pharmacy. Outpatient follow-up with PCP, surgery PHYSICAL EXAMINATION: GENERAL: The patient is alert and oriented x3, not in any acute distress. Well developed, well nourished. HEENT: Pupils are round and equally reacting to light. EOMI. No scleral icterus. No conjunctival pallor. Normocephalic, atraumatic. No pharyngeal erythema. No thyromegaly. CARDIOVASCULAR: S1 and S2 present. No murmurs, rubs, or gallops. PULMONARY: Chest is clear to auscultation, no wheezing or crackles. ABDOMEN: Soft, abdominal wall incision seen, bowel sounds audible MUSCULOSKELETAL: No joint swelling or deformity. EXTREMITIES: No cyanosis, clubbing, or pedal edema. NEUROLOGICAL: Gross neurological examination did not reveal any focal deficits. SKIN: No rashes. Dictation was produced using [id number] software. please excuse any grammatical, word or spelling errors. Patient Condition at Discharge: Good Plan - Discharge Summary Discharge Rx Participant: No New Discharge Prescriptions: New Apixaban [Eliquis Starter Pack (for VTE)] 5 - 10 mg PO DIRECTED 30 Days #1 each Continue lisinopriL [Zestril] 10 mg PO DAILY Ferrous Sulfate [Iron (65 MG Elemental)] 325 mg PO DAILY Citalopram Hydrobromide [CeleXA] 20 mg PO DAILY Discharge Medication List lisinopriL [Zestril] 10 mg PO DAILY 06/13/23 [History] Ferrous Sulfate [Iron (65 MG Elemental)] 325 mg PO DAILY 08/03/23 [History] Citalopram Hydrobromide [CeleXA] 20 mg PO DAILY 09/20/23 [History] Apixaban [Eliquis Starter Pack (for VTE)] 5 - 10 mg PO DIRECTED 30 Days #1 each 10/06/23 [Rx] Follow up Appointment(s)/Referral(s): Tori Nava MD [STAFF PHYSICIAN] - 1 Week Odilon Ziegler MD [STAFF PHYSICIAN] - 1 Week Discharge Disposition: HOME SELF-CARE
--- NOTE | 2023-10-06 14:07 | P.PN ---
Subjective Progress Note Date: 10/06/23 Patient is a 53-year-old white male with past medical history significant for bowel obstruction and previous sigmoidectomy with end colostomy performed 06/13/2023. Pathology was benign for malignancy, consistent with diverticulitis and abscess. Also, had a recent hospitalization in Aug, 2023 for abdominal wall cellulitis. Patient was admitted 09/26/2023 for an elective colostomy reversal. No intraoperative complications reported. Postoperatively, patient was noted to be hypoxemic and tachycardic. A D-dimer was drawn and elevated at 17. A follow-up chest CTA demonstrated multiple filling defects in the distal right and left pulmonary arteries and proximal segmental branches consistent with bilateral pulmonary emboli. No definitive evidence of right-sided heart strain. Patient does have a epidural, and we did reach out to anesthesia services. I did speak to my supervising physician, who had already spoke to Dr. Mistry, and agreed with removal of epidural and starting the patient on systemic heparin. Overall, patient is hemodynamically stable. He continues on 4 L/min nasal cannula. SpO2 is 93%. Minimally dyspneic with conversation. Heart rate is 110 bpm. Blood pressure is normotensive. CBC: WBC count 10.9, hemoglobin 11.8, hematocrit 39.4, platelets 176. Baseline coagulation profile unremarkable, APTT 25.8. BMP: Sodium 128, potassium 4.7, chloride 99, serum bicarb 19, BUN 13, creatinine 0.83, glucose 155. Patient is currently lying flat in bed. He denies any significant complaints. Denies shortness of breath or chest pain. Denies any personal or familial history of thromboembolic disease. Denies unilateral lower extremity swelling. The nurses already removed his epidural catheter. No drainage or hematoma. Postsurgical abdominal incision dressed with wound VAC. Very minimal serosanguineous output in canister. Patient is going to be transferred to the selective care unit for closer monitoring. Progress note dated September 29, 2023. 53-year-old male with a history of bowel obstruction, with previous sigmoidectomy, with end colostomy, which was performed in June of this year. Pathology was consistent with diverticulitis, and abscess. The patient was readmitted to the hospital, and had a reversal of colostomy performed. He developed postoperative shortness of breath, was found to have pulmonary embolism. The CT angiogram, did not reveal a right heart strain, but apparently the echocardiogram did. The patient did go for a suction thrombectomy, with Dr. Poe today. The patient was on IV heparin, and 2 L by nasal cannula. Saturations were 95%. Current labs include a white count 7.3, hemoglobin 10.6, hematocrit 35.1, and a normal platelet count. PTT was 47. Sodium 135, potassium 4.3, chlorides 104, CO2 28, BUN 5, creatinine 0.65. Troponins were 0.304 and 0.209. Progress note dated September 30, 2023. 53-year-old male status post bowel obstruction with previous sigmoidectomy and end colostomy. That procedure took place in June of this year. Pathology at that time was consistent with diverticulitis and abscess. There was no malignancy. The patient was readmitted to the hospital and had reversal of colostomy performed. Subsequent to that, the patient developed shortness of breath, was discovered to have a pulmonary embolism. The CTA did not suggest right heart strain, but the echocardiogram did. For that reason, the patient went to the catheterization laboratory and had suction thrombectomy, done by Dr. Poe. Currently, the patient is resting comfortably in room 355. He is on 2 L of oxygen. He is receiving IV heparin. He is getting dextrose with half-normal saline with 20 mill equivalents of potassium at 125 cc an hour. He has no specific complaints. He denies any shortness of breath, or chest pain. Current labs include a white count 7, hemoglobin 11.1, hematocrit 36.8, platelet count 233,000. Sodium 136, potassium 4.4, chlorides 103, CO2 29, BUN 6, creatinine 0.7. Glucose is 117. Total protein is 6. Albumin is 3.4. Progress note dated October 01, 2023. The patient is seen today in room 355. Clinically, he is feeling much improved. He is getting IV heparin, and D5 with half-normal saline and 20 mill equivalents of potassium, at 125 cc an hour. He is currently on room air. He denies any chest pain or difficulty breathing. Current labs include a white count 7, hemoglobin 11.1, hematocrit 36.8, platelet count 233,000. Sodium 136, potassium 4.4, chlorides 103, CO2 29, BUN 6, creatinine 0.7. Albumin is 3.4. 10/02/2023, no specific complaints. The patient remains on IV heparin. Remains on 3 Suboxone by nasal cannula with a pulse ox of 94%. His mobility is still very limited. Abdominal wound is dry clean and intact. No significant nausea or vomiting or abdominal pain. The patient is postop day #6 following a colostomy reversal. Patient is having bowel movement activity and diet will be advanced to full. IV fluids will be discontinued. IV heparin will be also discontinued and the patient is going to be transition to long-term anticoagulation with Eliquis. White cell count is at 9.9 with a, hemoglobin 12.4 and a platelet count of 235. Sodium levels at 134, potassium is 4.3, BUN is 9 with a creatinine of 0.7. The patient has no specific complaints. Anticoagulation will be started with Eliquis. 10/03/2023, the patient is resting comfortably in bed.On 7 the patient did encounter some nausea and emesis. The patient may have an underlying postop ileus. He does have positive bowel sounds and he is stooling. He will be started on some clear liquid diet. I took the patient off IV heparin and the patient is currently on anticoagulation with Eliquis regarding his pulm embolism. He is on 40 of oxygen by nasal cannula with a pulse ox of 97%. The white cell count of 9.1 with a hemoglobin of 11.2 and a platelet count of 230, BUN is 12 with a creatinine of 0.7 and a sodium levels at 133. The patient is afebrile for now. Abdominal wound is dry clean and intact. No abdominal pain. No chest pain. No pleurisy or hemoptysis. No other significant events overnight. 10/04/2023, the patient is being seen for a follow-up. The patient is currently on room air oxygen. No respiratory distress. He is able to sit up on a chair. He is doing also limited ambulation. Meanwhile, he is currently NPO. Abdomen is slightly distended. X-ray of the abdomen shows colonic ileus and the patient has no bowel movement activity. As such, the patient has been kept n.p.o. and general surgery is on the case. Patient is still recovering from his abdominal surgery which included a colostomy reversal and the patient is postop day #8. He remains on anticoagulation. Hemodynamically stable. The white cell count is at 9.1 with a hemoglobin of 11.2 and a platelet count of 230. Electrolytes are all within normal limits. Normal renal function. On 10/05/2023, the patient is passing bowel movements. Abdomen is less distended. He reported that his bowel movement was slightly bloody. Noted the patient's hemoglobin has remained stable at 11.3. No melanotic stools. He remains on room air oxygen. He remains on anticoagulation with Eliquis. He is ambulating. He is postop day #9 status post reversal of the colostomy. This was complicated by surgical ileus which is essentially improving. No nausea. No emesis. No abdominal pain. No chest pain. No pleurisy. No hemoptysis. 10/06/2023, the patient is being seen for a follow-up. The patient including extremely well. Stooling. No nausea. No vomiting. Abdominal pain. Surgical scar is dry clean and intact. Remains on room air oxygen. Remains on anticoagulation. No evidence of any GI bleeding. Hemoglobin stable at 11.3. The white cell count is at 12 with a platelet count of 270. Electrolytes are all stable and within normal limits. The patient currently is on room air oxygen. Pulse ox is ranging between 91 to 93%. Discharge planning is in progress. Objective - Vital Signs Vital signs: Vital Signs Temp 97.9 F 10/06/23 08:38 Pulse 95 10/06/23 08:38 Resp 16 10/06/23 08:38 BP 131/79 10/06/23 08:38 Pulse Ox 90 L 10/06/23 08:38 FiO2 21 10/02/23 08:50 Intake & Output 10/05/23 10/06/23 10/06/23 18:59 06:59 18:59 Intake Total 20 550 356 Balance 20 550 356 Weight 109.5 kg Intake: IV 20 10 10 Invasive Line 3 20 10 10 Oral 540 [id number] Other: Voiding Method Toilet Toilet Toilet Urinal Urinal Urinal # Voids 1 # Bowel Movements 1 - Exam No acute distress, oriented 3. Currently on room air oxygen. HEENT examination is grossly unremarkable. Mucous membranes are moist. No oral lesions. Neck supple. Full range of motion. No adenopathy thyromegaly or neck vein distention. Cardiovascular examination reveals regular rhythm rate. S1-S2 normal. No S3 or S4. No discernible murmur noted. Lungs reveal clear breath sounds. Breath sounds are equal bilaterally. No adventitious lung sounds including wheezes rhonchi or crackles. Abdomen is distended and the patient has sluggish or absent bowel sounds. Surgical scar is dry clean and intact. Extremities are intact. No cyanosis clubbing or edema. Skin is without rash or lesion. Neurologic examination is brief but nonfocal. - Labs CBC & Chem 7: 10/05/23 08:43 10/05/23 08:43 Assessment and Plan Plan: Acute bilateral segmental and subsegmental pulmonary emboli, no CT evidence of right-sided heart strain, significant strain noted on echocardiogram. The patient was treated with the patient remains on suction thrombectomy ([facility]), September 29, 2023. Patient is currently on IV heparin for now. Ultrasound Doppler of the lower extremities have been negative. Echocardiogram shows a preserved ventricular ejection fraction with an ejection fraction of 6065%, severe RV enlargement and right ventricular systolic pressure estimated to be around 40 mmHg. The patient is currently on anticoagulation with Eliquis. Acute hypoxemic respiratory failure, currently on room air oxygen Postoperative day # 10 following colostomy reversal. Colonic postoperative ileus. Clinically improving. The patient is passing flatus and bowel movement activity. Abdomen is nondistended and ileus has recovered. History of sigmoidectomy, secondary to diverticulitis with abscess, performed on 06/13/2023. History of abdominal wall cellulitis. History of hypertension. Morbid obesity, with a BMI of 41.5 kg/m. Plan: Patient diet has been advanced. No evidence of any GI bleeding Monitor the hemoglobin Continue anticoagulation with Eliquis Continue incentive spirometer Increase mobility Surgical site over the anterior abdominal wall is dry clean and intact Patient is clinically stable and hemodynamically stable Discharge home today.
--- NOTE | 2023-10-06 23:06 | P.PN ---
Subjective Progress Note Date: 10/06/23 CHIEF COMPLAINT: Colostomy reversal for diverticulitis HISTORY OF PRESENT ILLNESS: The patient is a 53-year-old male who presents with colostomy reversal for diverticulitis. Patient had pulmonary embolism, acute. Patient's diet has been advanced to low fiber diet for which she is tolerating. He is passing flatus. Denies any abdominal pain. ROS: No reports of nausea and vomiting. No fevers or chills. No new chest pain. No productive sputum PHYSICAL EXAM: VITAL SIGNS: Reviewed CONSTITUTIONAL: Well developed and in no acute distress. EYES: Conjuctivae without sclera icterus. Extraocular movements grossly intact. HEAD, EARS, NOSE, THROAT: Moist buccal mucosa. Head is atraumatic, normo cephalic. Hears conversational speech. No nasal drainage. RESPIRATORY: Non-labored respirations and equal bilateral excursions. CARDIOVASCULAR: Palpable 2+ radial pulses. ABDOMEN: Protuberant. No peritonitis. MUSCULOSKELETAL: No gross deformity of the lower extremities noted. No clubbing. No cyanosis. SKIN: Good skin turgor. Well perfused. NEUROLOGIC: Cranial nerves II through XII grossly intact. No focal or lateralizing signs. PSYCH: Appropriate affect. Alert and oriented to person, place and time. CLINICAL LABS: Reviewed. No new labs. ASSESSMENT: 1. Diverticulitis with colostomy status post reversal 2. Pulmonary embolism, acute 3. Postoperative ileus 4. Morbid obesity due to excess calories. PLAN: 1. Clinically, patient has done well including having bowel moods passing flatus and without fevers or chills. 2. Overall, patient is stable for discharge to follow-up with index surgeon within 1 to 2 weeks. 3. All questions were addressed including discharge instructions. Objective - Vital Signs Vital signs: Vital Signs Temp 97.9 F 10/06/23 08:38 Pulse 95 10/06/23 08:38 Resp 16 10/06/23 08:38 BP 131/79 10/06/23 08:38 Pulse Ox 90 L 10/06/23 08:38 FiO2 21 10/02/23 08:50 Intake & Output 10/06/23 10/06/23 10/07/23 06:59 18:59 06:59 Intake Total 550 476 Balance 550 476 Weight 109.5 kg 109.5 kg Intake: IV 10 20 Invasive Line 3 10 20 Oral 540 456 Other: Voiding Method Toilet Toilet Urinal Urinal # Voids 1 - Labs CBC & Chem 7: 10/05/23 08:43 10/05/23 08:43
== END 2023-10-06 15:42 | disposition home or self-care (01) | DRG 329 ==
LOC: 2ORMAIN 09:13 → 4SSUR 14:05 → 3SCARD 09-27 23:36
PROVIDERS: ADMIT Family Medicine; ATTEND Surgery
PROC: 0DBL0ZZ Excision of Transverse Colon, Open Approach (ICD-10-PCS; principal; 2023-09-26 10:20)
PROC: 0DBM0ZZ Excision of Descending Colon, Open Approach (ICD-10-PCS; principal; 2023-09-26 10:20)
PROC: 02CQ3ZZ Extirpation of Matter from Right Pulmonary Artery, Percutaneous Approach (ICD-10-PCS; 2023-09-29 11:20)
PROC: 02CP3ZZ Extirpation of Matter from Pulmonary Trunk, Percutaneous Approach (ICD-10-PCS; 2023-09-29 11:20)
PROC: 05H933Z Insertion of Infusion Device into Right Brachial Vein, Percutaneous Approach (ICD-10-PCS; 2023-10-03)
DX: Z43.3 Encounter for attention to colostomy (principal); I21.A1 Myocardial infarction type 2; I26.94 Multiple subsegmental thrombotic pulmonary emboli without acute cor pulmonale; J96.01 Acute respiratory failure with hypoxia; F32.1 Major depressive disorder, single episode, moderate; K56.7 Ileus, unspecified; Z68.41 Body mass index [BMI] 40.0-44.9, adult; E66.01 Morbid (severe) obesity due to excess calories; F41.9 Anxiety disorder, unspecified; I10 Essential (primary) hypertension; I27.20 Pulmonary hypertension, unspecified; K21.9 Gastro-esophageal reflux disease without esophagitis; Z79.899 Other long term (current) drug therapy; Z71.3 Dietary counseling and surveillance; Z28.310 Unvaccinated for COVID-19; Z28.21 Immunization not carried out because of patient refusal; Z86.14 Personal history of Methicillin resistant Staphylococcus aureus infection; Z90.49 Acquired absence of other specified parts of digestive tract; Z96.651 Presence of right artificial knee joint
CPT/HCPCS: 36410; 37184; 37185; 71275; 74019; 74022; 75743; 76937; 80048; 80053; 83735; 84100; 84484; 85025; 85027; 85379; 85610; 85730; 88304; 93005; 93306; 93970; 94640; 94760

== ENCOUNTER → 2024-02-12 | Day surgery (SDC) | payer BC ==
[~2024-02-12] MED LIST changes: -HYDROmorphone 0.5 MG/0.5 ML SYRINGE IVP PRN; -LIDOCAINE 1% (10MG/ML) FOR IV START INTRADERMA PRN; +LIDOCAINE 1% INJ 10MG/ML (20 ML MDV) ONE; -MIDAZOLAM 2 MG/2 ML VIAL IV PRN; +MIDAZOLAM 2 MG/2 ML VIAL ONE; +PROPOFOL 10 MG/ML 20 ML VIAL IV ONE; -fentaNYL (PF) 50 MCG/ML 2 ML AMP IVP PRN
[2024-02-12] MEDS: IV FLUID CONTINUATION 1,000 ML IV ONE (13:23)
[2024-02-12] MEDS: LACTATED RINGERS 1,000 ML IV SCH (13:41)
--- NOTE | 2024-02-12 14:32 | P.OP ---
Date of Procedure: 02/12/24 Preoperative Diagnosis: Anemia GI bleed Postoperative Diagnosis: Antral gastritis Diverticulosis Colon polyps Procedure(s) Performed: Colonoscopy EGD Anesthesia: MAC Surgeon: Odilon Ziegler Estimated Blood Loss (ml): 5 Pathology: other (Colon polyps, gastritis) Condition: stable Disposition: PACU Description of Procedure: The patient is placed on the endoscopy table in the lateral position. He received IV sedation. The Gastroflux oropharynx passed in the esophagus and the stomach. Scope was placed with the pylorus. The first and second portion of the duodenum appeared normal. The scope was brought back to the antrum this is mildly flayed. A biopsy was performed. The scope was then retroflexed remainder the stomach appeared normal. The GE junction was at 40 cm. The distal esophagus appeared normal. Proximal esophagus appeared normal which withdrawn patient. Next digital rectal exams performed. This revealed no abnormality. Flex colonoscope was then placed patient anus and passed throughout the entire colon. The ileocecal valve was visualized. Th the cecum there was a small polyp seen this removed with the forcep. The remainder the ascending colon appeared normal in the transverse and descending colon there was diverticulosis noted. Patient had previous sigmoid resection. At the anastomosis there appeared to be a polyp. This removed with a snare. The d the rectum appeared normal. Scope withdrawn for patient. There is no evidence of any active GI bleed. Presumed patient may have had bleeding from gastritis or diverticulosis.
[2024-02-12 14:47] VITALS: PULSE 98
[2024-02-12 14:49] VITALS: BP 131/86; RESP 16
== END ==
LOC: ORWHC2ENDO 12:53
PROVIDERS: ATTEND Surgery
DX: K29.50 Unspecified chronic gastritis without bleeding (principal); K57.30 Diverticulosis of large intestine without perforation or abscess without bleeding; D12.0 Benign neoplasm of cecum; D64.9 Anemia, unspecified; K62.1 Rectal polyp; I10 Essential (primary) hypertension; M19.90 Unspecified osteoarthritis, unspecified site; Z86.711 Personal history of pulmonary embolism; Z79.01 Long term (current) use of anticoagulants; Z79.899 Other long term (current) drug therapy
CPT/HCPCS: 88305; 45380; 45385; 43239; J2250; J2003; J2704; 88342

== ENCOUNTER 2024-06-05 18:49 | Emergency (ER) | payer BC ==
[2024-06-05 19:35] VITALS: TEMP 97.9
--- NOTE | 2024-06-05 19:36 | ED ---
URI HPI - General Chief Complaint: Upper Respiratory Infection Stated Complaint: BRAD, congestion Time Seen by Provider: 06/05/24 19:06 Source: patient, RN notes reviewed Mode of arrival: ambulatory Limitations: no limitations - History of Present Illness Initial Comments: 54-year-old male presents emergency department with chief complaint of cough congestion shortness of breath. Patient states not felt well for last 1 week he did initially see his PCP placed him a cough suppressant, antibiotics. He states he has not tested for any viral illnesses he did not have an x-ray. Denies any GI symptoms reports possible fever. No history of asthma or COPD. - Related Data Home Medications Medication Instructions Recorded Confirmed lisinopriL [Zestril] 10 mg PO DAILY 06/13/23 02/12/24 Apixaban [Eliquis] 5 mg PO BID 02/08/24 02/12/24 LORazepam 0.5 mg PO Q8H PRN 02/08/24 02/12/24 Allergies Allergy/AdvReac Type Severity Reaction Status Date / Time No Known Allergies Allergy Verified 06/05/24 19:35 Review of Systems ROS Statement: Those systems with pertinent positive or pertinent negative responses have been documented in the HPI. ROS Other: All systems not noted in ROS Statement are negative. Past Medical History Past Medical History: Hypertension, Pulmonary Embolus (PE) Additional Past Medical History / Comment(s): Diverticulitis. Has colostomy. History of Any Multi-Drug Resistant Organisms: MRSA Date of last positivie culture/infection: 06/14/18 MDRO Source:: AXILLA,face and abdomen Past Surgical History: Bowel Resection, Orthopedic Surgery Additional Past Surgical History / Comment(s): Right knee, cysts on buttock I&D, C5-7 surgery with cage Nov 2021, colostomy. nasal wart removed lft nostril colostomy reversal Past Anesthesia/Blood Transfusion Reactions: Previous Problems w/ Anesthesia Additional Past Anesthesia/Blood Transfusion Reaction / Comment(s): Pressure drops and hard to wake up. Past Psychological History: Anxiety Smoking Status: Never smoker Past Alcohol Use History: None Reported Past Drug Use History: None Reported - Past Family History Brother(s) Family Medical History: Diabetes Mellitus Mother Family Medical History: Diabetes Mellitus Father Family Medical History: Myocardial Infarction (NC) Additional Family Medical History / Comment(s): NC at 51 and one at 66 when he passed. General Exam Limitations: no limitations General appearance: alert, in no apparent distress Head exam: Present: atraumatic, normocephalic, normal inspection Eye exam: Present: normal appearance, PERRL, EOMI. Absent: scleral icterus, conjunctival injection, periorbital swelling ENT exam: Present: normal exam, normal oropharynx, mucous membranes moist Neck exam: Present: normal inspection, full ROM. Absent: tenderness, meningismus, lymphadenopathy Respiratory exam: Present: normal lung sounds bilaterally. Absent: respiratory distress, wheezes, rales, rhonchi, stridor Cardiovascular Exam: Present: regular rate, normal rhythm, normal heart sounds. Absent: systolic murmur, diastolic murmur, rubs, gallop, clicks Course Vital Signs 06/05/24 19:32 Temperature 97.9 F Pulse Rate 94 Respiratory 20 Rate Blood Pressure 171/98 O2 Sat by Pulse 97 Oximetry Medical Decision Making - Medical Decision Making Was pt. sent in by a medical professional or institution (, PA, EQUIPMENT MAINTENANCE ENGINEER, urgent care, hospital, or halfway...) When possible be specific @ -No Did you speak to anyone other than the patient for history (EMS, parent, family, police, friend...)? What history was obtained from this source @ -No Did you review nursing and triage notes (agree or disagree)? Why? @ -I reviewed and agree with nursing and triage notes Were old charts reviewed (outside hosp., previous admission, EMS record, old EKG, old radiological studies, urgent care reports/EKG's, halfway records)? Report findings @ -No old charts were reviewed Differential Diagnosis (chest pain, altered mental status, abdominal pain women, abdominal pain men, vaginal bleeding, weakness, fever, dyspnea, syncope, headache, dizziness, GI bleed, back pain, seizure, CVA, palpatations, mental health, musculoskeletal)? @ -COVID 19, RSV, influenza, pneumonia, acute bronchitis, URI, this list is not all inclusive EKG interpreted by me (3pts min.). @ -None X-rays interpreted by me (1pt min.). @ -Chest x-ray shows no acute cardiopulmonary process. CT interpreted by me (1pt min.). @ -None done U/S interpreted by me (1pt. min.). @ -None done What testing was considered but not performed or refused? (CT, X-rays, U/S, labs)? Why? @ -None What meds were considered but not given or refused? Why? @ -None Did you discuss the management of the patient with other professionals (professionals i.e. , PA, EQUIPMENT MAINTENANCE ENGINEER, lab, RT, psych nurse, social work manager, marketing operations specialist, teacher, navy airspace officer, corrections caseworker)? Give summary @ -No Was smoking cessation discussed for >3mins.? @ -No Was critical care preformed (if so, how long)? @ -No Were there social determinants of health that impacted care today? How? (Homelessness, low income, unemployed, alcoholism, drug addiction, transportation, low edu. Level, literacy, decrease access to med. care, long term, rehab)? @ -No Was there de-escalation of care discussed even if they declined (Discuss DNR or withdrawal of care, Hospice)? DNR status @ -No What co-morbidities impacted this encounter? (DM, HTN, Smoking, COPD, CAD, Cancer, CVA, ARF, Chemo, Hep., AIDS, mental health diagnosis, sleep apnea, morbid obesity)? @ -None Was patient admitted / discharged? Hospital course, mention meds given and route, prescriptions, significant lab abnormalities, going to OR and other pertinent info. @ -Discharged patient has influenza A he has been sick for 1 week. Patient discharged in stable condition. Undiagnosed new problem with uncertain prognosis? @ -No Drug Therapy requiring intensive monitoring for toxicity (Heparin, Nitro, Insulin, Cardizem)? @ -No Were any procedures done? @ -No Diagnosis/symptom? @ -Influenza A Acute, or Chronic, or Acute on Chronic? @ -Acute Uncomplicated (without systemic symptoms) or Complicated (systemic symptoms)? @ -Uncomplicated Side effects of treatment? @ -No Exacerbation, Progression, or Severe Exacerbation? @ -No Poses a threat to life or bodily function? How? (Chest pain, [place], NC, pneumonia, PE, COPD, DKA, ARF, appy, cholecystitis, CVA, Diverticulitis, Homicidal, Suicidal, threat to staff... and all critical care pts) @ -No - Lab Data Lab Results 06/05/24 Range/Units 19:37 Influenza Type A (PCR) Detected A (Not Detectd) Influenza Type B (PCR) Not Detected (Not Detectd) RSV (PCR) Not Detected (Not Detectd) SARS-CoV-2 (PCR) Not Detected (Not Detectd) Disposition Clinical Impression: Influenza A Disposition: HOME SELF-CARE Condition: Stable Instructions (If sedation given, give patient instructions): Influenza (ED) Additional Instructions: Please return to the Emergency Department if symptoms worsen or any other concerns. Is patient prescribed a controlled substance at d/c from ED?: No Referrals: Gerald Alexander MD [Primary Care Provider] - 1-2 days Time of Disposition: 21:13
--- NOTE | 2024-06-05 20:02 | XR ---
EXAMINATION TYPE: XR chest 2V DATE OF EXAM: 06/05/2024 7:44 PM COMPARISON: Chest radiographs from 08/03/2023 CLINICAL INDICATION: Male, 54 years old with history of sob; TECHNIQUE: XR chest 2V Frontal and lateral views of the chest. FINDINGS: Lungs/Pleura: There is no evidence of pleural effusion, focal consolidation, or pneumothorax. Pulmonary vascularity: Unremarkable. Heart/mediastinum: Cardiomediastinal silhouette is unremarkable. Musculoskeletal: No acute osseous pathology. There is fixation hardware in the lower cervical spine. Other findings: None IMPRESSION: No acute cardiopulmonary disease/process. [facility], , 06/05/2024 8:00 PM
[2024-06-05 20:54] LABS: Influenza A Detected (Not Detectd); Influenza B Not Detected (Not Detectd); RSV Not Detected (Not Detectd)
[2024-06-05 21:25] VITALS: BP 146/92; PULSE 85; RESP 18
== END 2024-06-05 21:25 | disposition home or self-care (01) ==
LOC: EC 18:49
DX: J10.1 Influenza due to other identified influenza virus with other respiratory manifestations (principal)
CPT/HCPCS: 71046; 87636; 99285